=== PATIENT | female | born 1950 | race American Indian/Alaskan Native ===

== ENCOUNTER 2019-05-17 10:04 | Inpatient (IN) | payer MEDICARE ==
[2019-05-17] MEDS ORDERED: IPRATROPIUM 0.02% NEBU 2.5 ML IH ONE ×2 (10:11→10:16)
[2019-05-17] MEDS ORDERED: ALBUTEROL 2.5 MG/3 ML NEBU IH ONE ×2 (10:11→10:16)
--- NOTE | 2019-05-17 10:16 | Emergency Department Report ---
ED Shortness of Breath HPI - General Stated Complaint: EVY Time Seen by Provider: 05/17/19 10:09 Source: patient, EMS - History of Present Illness Initial Comments: Patient is 69 years old female with history of COPD, pulmonary hypertension and diabetes. Patient brought to the emergency room via EMS for evaluation of shortness of breath and difficulty breathing started this morning. EMS stated that patient initial oxygen saturation was 80% on room air. Patient is started on BiPAP and symptoms to start to improve. Patient received Solu-Medrol 125 mg IV and 2 rounds of magnesium sulfate. Arrival to the ER patient is in moderate respiratory distress but she is alert, oriented 3 and following commands very well. Patient continued on BiPAP, received 10 mg of albuterol and 1 mg of Atrovent. MD Complaint: shortness of breath - Related Data Allergies Allergy/AdvReac Type Severity Reaction Status Date / Time codeine Allergy Itching Verified 04/18/15 18:49 Penicillins Allergy Hives Verified 04/18/15 18:49 Sulfa (Sulfonamide Allergy Unknown Verified 04/18/15 18:49 Antibiotics) ED Review of Systems ROS: Stated complaint: EVY Other details as noted in HPI Comment: All other systems reviewed and negative Constitutional: denies: chills, fever Respiratory: shortness of breath, SOB with exertion, wheezing. denies: cough Cardiovascular: denies: chest pain, palpitations Gastrointestinal: denies: abdominal pain, nausea, vomiting Neurological: denies: headache, weakness, numbness, paresthesias, confusion, abnormal gait, vertigo ED Past Medical Hx - Past Medical History Hx Diabetes: Yes (borderline) Hx COPD: Yes Hx HIV: No Additional medical history: high cholesterol - Surgical History Additional Surgical History: hysterectomy - Social History Smoking Status: Current Every Day Smoker ED Physical Exam - General Limitations: No Limitations General appearance: alert, in distress (moderate respiratory distress) - Head Head exam: Present: atraumatic, normocephalic, normal inspection - Eye Eye exam: Present: normal appearance - ENT ENT exam: Present: normal exam, normal orophraynx, mucous membranes moist - Neck Neck exam: Present: normal inspection, full ROM. Absent: tenderness, meningismus, lymphadenopathy, thyromegaly - Respiratory Respiratory exam: Present: respiratory distress, wheezes, rales, rhonchi, accessory muscle use. Absent: stridor, decreased breath sounds, prolonged expiratory - Cardiovascular Cardiovascular Exam: Present: regular rate, normal rhythm, normal heart sounds - GI/Abdominal GI/Abdominal exam: Present: soft, normal bowel sounds. Absent: distended, tenderness, guarding, rebound, rigid, organomegaly, mass, bruit, pulsatile mass, hernia - Extremities Exam Extremities exam: Present: normal inspection, full ROM, normal capillary refill. Absent: pedal edema, calf tenderness - Back Exam Back exam: Present: normal inspection, full ROM. Absent: CVA tenderness (R), CVA tenderness (L), muscle spasm, paraspinal tenderness, vertebral tenderness - Neurological Exam Neurological exam: Present: alert, oriented X3, CN II-XII intact - Psychiatric Psychiatric exam: Present: normal mood, anxious - Skin Skin exam: Present: warm, intact, normal color ED Course Vital Signs 05/17/19 05/17/19 05/17/19 10:05 10:20 10:23 Temperature 97.8 F Pulse Rate 103 H 92 H Pulse Rate [ 90 Anterior Bilateral Throughout] Respiratory 23 19 Rate Respiratory 15 Rate [Anterior Bilateral Throughout] Blood Pressure 123/74 Blood Pressure 123/74 [Left] O2 Sat by Pulse 100 100 Oximetry 05/17/19 05/17/19 05/17/19 10:24 10:50 11:09 Temperature Pulse Rate 92 H 90 Pulse Rate [ Anterior Bilateral Throughout] Respiratory 18 14 Rate Respiratory Rate [Anterior Bilateral Throughout] Blood Pressure 88/47 Blood Pressure 86/55 [Left] O2 Sat by Pulse 100 100 Oximetry 05/17/19 05/17/19 12:18 12:59 Temperature Pulse Rate 89 80 Pulse Rate [ Anterior Bilateral Throughout] Respiratory 14 14 Rate Respiratory Rate [Anterior Bilateral Throughout] Blood Pressure Blood Pressure 96/52 102/62 [Left] O2 Sat by Pulse 94 99 Oximetry ED Medical Decision Making - Lab Data Result diagrams: 05/17/19 10:35 05/17/19 10:35 - EKG Data -: EKG Interpreted by Nm EKG shows normal: sinus rhythm Rate: tachycardia - EKG Data Interpretation: no acute changes - Radiology Data Radiology results: report reviewed - Medical Decision Making Patient is 69 years old female with history of COPD, pulmonary hypertension and diabetes. Patient brought to the emergency room via EMS for evaluation of shortness of breath and difficulty breathing started this morning. EMS stated that patient initial oxygen saturation was 80% on room air. Patient is started on BiPAP and symptoms to start to improve. Patient received Solu-Medrol 125 mg IV and 2 rounds of magnesium sulfate. Arrival to the ER patient is in moderate respiratory distress but she is alert, oriented 3 and following commands very well. Patient continued on BiPAP, received 10 mg of albuterol and 1 mg of Atrovent. Patient continued on BiPAP. Patient stated that she is feeling better. I discussed the patient was Dr. Phillips from [facility] for advised to admit the patient until [facility] and he will follow-up on the patient for possible conservator when patient is a stable. I discussed the patient with Dr. Keene, he agreed to admit to the hospital. Critical Care Time: Yes Critical care time in (mins) excluding proc time.: 30 Critical care attestation.: If time is entered above; I have spent that time in minutes in the direct care of this critically ill patient, excluding procedure time. ED Disposition Clinical Impression: COPD exacerbation, Acute and chronic respiratory failure Disposition: 09 OP ADMIT IP TO THIS HOSP Is pt being admited?: Yes Condition: Stable Instructions: Chronic Bronchitis (ED)
[2019-05-17] MEDS ORDERED: SODIUM CHLORIDE 0.9% 1000 ML 1,000 ML ONE (10:47)
[2019-05-17] MEDS ORDERED: SODIUM CHLORIDE 0.9% 1000 ML 1,000 ML IV ONE (10:51)
[2019-05-17 10:59] LABS: INR 1.02 (0.87-1.13)
--- NOTE | 2019-05-17 10:59 | XRay Report ---
CHEST 1 VIEW 10:36 AM INDICATION / CLINICAL INFORMATION: Dyspnea. COMPARISON: None available. FINDINGS: SUPPORT DEVICES: None. HEART / MEDIASTINUM: The heart size is borderline with a left ventricular configuration. Pulmonary va sculature is normal. There is mild aortic tortuosity without aneurysm. LUNGS / PLEURA: There is mild linear parenchymal opacity in the right lung base. The lungs are otherw ise clear. No pneumothorax. ADDITIONAL FINDINGS: No significant additional findings. IMPRESSION: Mild right basilar subsegmental atelectasis. Signer Name: Sameer Malone MD Signed: 05/17/2019 10:55 AM Workstation Name: [id number]
[2019-05-17 11:00] LABS: Partial Thromboplastin Time 25.5 Sec. (24.2-36.6)
[2019-05-17 11:04] LABS: BUN/Creatinine Ratio 18; Blood Urea Nitrogen 14 mg/dL (7-17); Calcium 8.9 mg/dL (8.4-10.2); Hemolysis Index 6
[2019-05-17 11:08] LABS: Alanine Aminotransferase 29 units/L (7-56); Albumin 3.9 g/dL (3.9-5)
[2019-05-17 11:09] LABS: Bilirubin,Direct < 0.2 mg/dL (0-0.2)
[2019-05-17 11:12] LABS: Eosinophils # (Auto) 0.3 K/mm3 (0.0-0.4); Eosinophils % (Auto) 3.7 % (0.0-4.3)
[2019-05-17 11:13] LABS: Hemoglobin 13.4 gm/dl (10.1-14.3); Mean Corpuscular HGB Conc 32 % (30-34); Mean Corpuscular Volume 81 fl (79-97); Platelet Count 257 K/mm3 (140-440); Red Blood Count 5.18 M/mm3 (3.65-5.03); Red Cell Distribution Width 15.7 % (13.2-15.2)
[2019-05-17 11:14] LABS: Basophils # (Auto) 0.1 K/mm3 (0.0-0.1); Basophils % (Auto) 0.6 % (0.0-1.8); Monocytes # (Auto) 0.7 K/mm3 (0.0-0.8); Monocytes % (Auto) 7.4 % (0.0-7.3)
--- NOTE | 2019-05-17 12:30 | Cat Scan Report ---
CTA CHEST WITH IV CONTRAST INDICATION: SOB AND ELEVATED D-DIMER. TECHNIQUE: Axial CT images were obtained through the chest after injection of 100 mL Omnipaque 350 IV contrast. 3 plane MIP reconstructions were produced. All CT scans at this location are performed using CT dose reduction for ALARA by means of automated exposure control. COMPARISON: One view of the chest from earlier today. FINDINGS: PULMONARY ARTERIES: No pulmonary emboli. AORTA AND ARTERIES: No acute abnormality. No significant atherosclerosis. MEDIASTINUM: The thyroid gland is unremarkable. The trachea and main bronchi are patent and normal in caliber. No mass or lymphadenopathy. Normal heart size without a pericardial effusion. LUNGS: Mild centrilobular emphysema is noted predominantly along the upper lobes. There is bibasilar atelectasis, most notable along the right lower lobe. No pneumothorax or pleural effusion. ADDITIONAL FINDINGS: None. UPPER ABDOMEN: No acute findings. BONES: No significant osseous abnormality. IMPRESSION: 1. No CT evidence for pulmonary embolism or other acute abnormalities of the chest. 2. Additional findings as above. Signer Name: Nav Hooks MD Signed: 05/17/2019 12:26 PM Workstation Name: [id number]
[2019-05-17 14:09] LABS: Chol/HDL Ratio 3.2 %
[2019-05-17] MEDS ORDERED: ALBUTEROL 2.5 MG/3 ML NEBU IH PRN (21:54)
[2019-05-17] MEDS ORDERED: oxyCODONE /ACETAMINOPHEN 5-325MG TAB PO PRN (21:55)
[2019-05-17] MEDS ORDERED: HYDROmorphone 1 MG/1 ML INJ IV PRN (21:55)
[2019-05-17] MEDS ORDERED: ACETAMINOPHEN 325 MG TAB PO PRN (21:55)
[2019-05-17] MEDS ORDERED: ONDANSETRON 4 MG/2 ML INJ IV PRN (21:55)
[2019-05-17] MEDS ORDERED: ZOLPIDEM 5 MG TAB PO PRN (21:55)
[2019-05-17] MEDS ORDERED: OLODATEROL HCL IH SCH (22:00)
[2019-05-17] MEDS ORDERED: ENOXAPARIN 40 MG/0.4 ML INJ SUB-Q SCH (22:00)
[2019-05-17] MEDS ORDERED: TIOTROPIUM BR IH SCH (22:00)
[2019-05-17] MEDS: FAMOTIDINE 20 MG TAB PO SCH (22:22)
[2019-05-17] MEDS: methylPREDNISolone Sod Succinate 125 MG/2 ML INJ IV SCH (22:22)
[2019-05-18] MEDS: methylPREDNISolone Sod Succinate 125 MG/2 ML INJ IV SCH ×2 (06:30→14:48)
[2019-05-18 06:46] LABS: Alanine Aminotransferase 27 units/L (7-56); Albumin 3.6 g/dL (3.9-5); BUN/Creatinine Ratio 20; Blood Urea Nitrogen 12 mg/dL (7-17); Calcium 8.9 mg/dL (8.4-10.2); Hemolysis Index 0
[2019-05-18 06:46] LABS: Basophils % (Auto) 0.1 % (0.0-1.8); Hematocrit 40.2 % (30.3-42.9); Hemoglobin 12.9 gm/dl (10.1-14.3); Lymphocytes % (Auto) 11.4 % (13.4-35.0); Mean Corpuscular HGB Conc 32 % (30-34); Mean Corpuscular Volume 81 fl (79-97); Monocytes # (Auto) 0.2 K/mm3 (0.0-0.8); Monocytes % (Auto) 1.9 % (0.0-7.3); Platelet Count 236 K/mm3 (140-440); Red Blood Count 4.99 M/mm3 (3.65-5.03); Red Cell Distribution Width 15.6 % (13.2-15.2)
--- NOTE | 2019-05-18 07:12 | History and Physical Report ---
History of Present Illness Date of examination: 05/17/19 Date of admission: 05/17/19 13:38 Chief complaint: SOB since AM History of present illness: 69 years old female with history of COPD, pulmonary hypertension and diabetes brought to the emergency room via EMS for evaluation of shortness of breath and difficulty breathing started this morning. EMS stated that patient initial oxygen saturation was 80% on room air. Patient is started on BiPAP and symptoms to start to improve. Patient received Solu-Medrol 125 mg IV and 2 rounds of magnesium sulfate. Arrival to the ER patient is in moderate respiratory distress but she is alert, oriented 3 and following commands very well. Patient continued on BiPAP, received 10 mg of albuterol and 1 mg of Atrovent. Past Medical History Diabetes COPD high cholesterol Surgical History Additional Surgical History: hysterectomy Social History Smoking Status: Current Every Day Smoker Family History Htn Review of Systems ROS: Stated complaint: EVY Other details as noted in HPI Comment: All other systems reviewed and negative Constitutional: denies: chills, fever Respiratory: shortness of breath, SOB with exertion, wheezing. denies: cough Cardiovascular: denies: chest pain, palpitations Gastrointestinal: denies: abdominal pain, nausea, vomiting Neurological: denies: headache, weakness, numbness, paresthesias, confusion, abnormal gait, vertigo Medications and Allergies Allergies Allergy/AdvReac Type Severity Reaction Status Date / Time cetirizine [From [facility]] Allergy Hives Verified 05/17/19 15:59 codeine Allergy Itching Verified 04/18/15 18:49 Penicillins Allergy Hives Verified 04/18/15 18:49 pseudoephedrine Allergy Anaphylaxis Verified 05/17/19 15:59 [From [facility]] Sulfa (Sulfonamide Allergy Unknown Verified 04/18/15 18:49 Antibiotics) Home Medications Medication Instructions Recorded Confirmed Last Taken Type ALBUTEROL Inhaler (OR & NICU) 2 puff IH QID PRN 05/17/19 05/17/19 2 Days Ago History [Proair] ~05/15/19 Ipratropium/Albuterol Sulfate 1 ampul IH Q6HR PRN 05/17/19 05/17/19 1 Day Ago History [DUONEB *Not for PRN Use*] ~05/16/19 Tiotropium Br/Olodaterol HCl 4 gm IH BID 05/17/19 05/17/19 1 Day Ago History [Stiolto Respimat Inhal [place]] ~05/16/19 Active Meds: Active Medications Acetaminophen (Tylenol) 650 mg PO Q4H PRN PRN Reason: Pain MILD(1-3)/Fever >100.5/RIOS Albuterol (Proventil) 2.5 mg IH Q4HRT PRN PRN Reason: Shortness Of Breath Albuterol/Ipratropium (Duoneb *Not For Prn Use*) 1 ampul IH QIDRT [facility] Enoxaparin Sodium (Lovenox) 40 mg SUB-Q QDAY@2200 [facility] Last Admin: 05/17/19 22:23 Dose: 40 mg Documented by: Famotidine (Pepcid) 20 mg PO BID [facility] Last Admin: 05/17/19 22:22 Dose: 20 mg Documented by: Hydromorphone HCl (Dilaudid) 0.5 mg IV Q3H PRN PRN Reason: Pain , Severe (7-10) Levofloxacin/Dextrose (Levaquin 750mg/150ml) 750 mg in 150 mls @ 100 mls/hr IV Q24H [facility]; Protocol Last Admin: 05/17/19 22:23 Dose: 100 mls/hr Documented by: Methylprednisolone Sodium Succinate (Solu-Medrol) 80 mg IV Q8HR [facility] Last Admin: 05/17/19 22:22 Dose: 80 mg Documented by: Ondansetron HCl (Zofran) 4 mg IV Q8H PRN PRN Reason: Nausea And Vomiting Oxycodone/Acetaminophen (Percocet 5/325) 1 tab PO Q6H PRN PRN Reason: Pain, Moderate (4-6) Sodium Chloride (Sodium Chloride Flush Syringe 10 Ml) 10 ml IV BID [facility] Last Admin: 05/17/19 22:36 Dose: 10 ml Documented by: Sodium Chloride (Sodium Chloride Flush Syringe 10 Ml) 10 ml IV PRN PRN PRN Reason: LINE FLUSH Zolpidem Tartrate (Ambien) 5 mg PO QHS PRN PRN Reason: Insomnia Exam - Constitutional Vitals: Temp Pulse Resp BP Pulse Ox 98.4 F 81 20 105/61 99 05/17/19 23:05 05/17/19 23:05 05/18/19 02:58 05/17/19 23:05 05/17/19 23:05 General appearance: Present: mild distress, well-nourished - EENT Eyes: Present: PERRL ENT: hearing intact, clear oral mucosa - Neck Neck: Present: supple, normal ROM - Respiratory Respiratory effort: normal Respiratory: bilateral: diminished, rhonchi, wheezing - Cardiovascular Heart rate: 88 Rhythm: regular Heart Sounds: Present: S1 & S2. Absent: rub, click - Extremities Extremities: no ischemia, pulses intact, pulses symmetrical, No edema Peripheral Pulses: within normal limits - Abdominal General gastrointestinal: Present: soft, non-tender, non-distended, normal bowel sounds Female genitourinary: Present: normal - Rectal Rectal Exam: deferred - Integumentary Integumentary: Present: clear, warm, dry - Musculoskeletal Musculoskeletal: gait normal, strength equal bilaterally - Psychiatric Psychiatric: appropriate mood/affect, intact judgment & insight - Neurologic Neurologic: CNII-XII intact, moves all extremities - Allied Health Allied health notes reviewed: nursing, case management Results - Labs CBC & Chem 7: 05/18/19 Unknown 05/17/19 10:35 Labs: Laboratory Last Values WBC 8.5 K/mm3 (4.5-11.0) 05/18/19 Unknown RBC 4.99 M/mm3 (3.65-5.03) 05/18/19 Unknown Hgb 12.9 gm/dl (10.1-14.3) 05/18/19 Unknown Hct 40.2 % (30.3-42.9) 05/18/19 Unknown MCV 81 fl (79-97) 05/18/19 Unknown MCH 26 pg (28-32) L 05/18/19 Unknown MCHC 32 % (30-34) 05/18/19 Unknown RDW 15.6 % (13.2-15.2) H 05/18/19 Unknown Plt Count 236 K/mm3 (140-440) 05/18/19 Unknown Lymph % (Auto) 11.4 % (13.4-35.0) L 05/18/19 Unknown [place] % (Auto) 1.9 % (0.0-7.3) 05/18/19 Unknown Eos % (Auto) 0.0 % (0.0-4.3) 05/18/19 Unknown Baso % (Auto) 0.1 % (0.0-1.8) 05/18/19 Unknown Lymph # 1.0 K/mm3 (1.2-5.4) L 05/18/19 Unknown [place] # 0.2 K/mm3 (0.0-0.8) 05/18/19 Unknown Eos # 0.0 K/mm3 (0.0-0.4) 05/18/19 Unknown Baso # 0.0 K/mm3 (0.0-0.1) 05/18/19 Unknown Seg Neutrophils % 86.6 % (40.0-70.0) H 05/18/19 Unknown Seg Neutrophils # 7.4 K/mm3 (1.8-7.7) 05/18/19 Unknown PT 13.1 Sec. (12.2-14.9) 05/17/19 10:35 INR 1.02 (0.87-1.13) 05/17/19 10:35 APTT 25.5 Sec. (24.2-36.6) 05/17/19 10:35 D-Dimer 709.26 ng/mlDDU (0-234) H 05/17/19 10:35 POC ABG pH 7.299 (7.35-7.45) L 05/17/19 11:24 POC ABG pCO2 47.0 (35-45) H 05/17/19 11:24 POC ABG pO2 125 (80-105) H 05/17/19 11:24 POC ABG HCO3 23.1 (22-26 mml/L) 05/17/19 11:24 POC ABG Total CO2 25 (23-27mmol/L) 05/17/19 11:24 POC ABG O2 Sat 98 05/17/19 11:24 POC ABG Base Excess -3 ((-2) - (+3)mmol/L) 05/17/19 11:24 FiO2 35 % 05/17/19 11:24 Sodium 142 mmol/L (137-145) 05/17/19 10:35 Potassium 4.6 mmol/L (3.6-5.0) 05/17/19 10:35 Chloride 103.4 mmol/L (98-107) 05/17/19 10:35 Carbon Dioxide 23 mmol/L (22-30) 05/17/19 10:35 Anion Gap 20 mmol/L 05/17/19 10:35 BUN 14 mg/dL (7-17) 05/17/19 10:35 Creatinine 0.8 mg/dL (0.7-1.2) 05/17/19 10:35 Estimated GFR > 60 ml/min 05/17/19 10:35 BUN/Creatinine Ratio 18 % 05/17/19 10:35 Glucose 192 mg/dL (65-100) H 05/17/19 10:35 Hemoglobin A1c 6.8 % (4-6) H 05/17/19 10:35 Calcium 8.9 mg/dL (8.4-10.2) 05/17/19 10:35 Total Bilirubin 0.30 mg/dL (0.1-1.2) 05/17/19 10:35 Direct Bilirubin < 0.2 mg/dL (0-0.2) 05/17/19 10:35 Indirect Bilirubin 0.1 mg/dL 05/17/19 10:35 AST 37 units/L (5-40) 05/17/19 10:35 ALT 29 units/L (7-56) 05/17/19 10:35 Alkaline Phosphatase 128 units/L (35-129) 05/17/19 10:35 Troponin T 0.090 ng/mL (0.00-0.029) H D 05/17/19 13:19 NT-Pro-B Natriuret Pep 77.33 pg/mL (0-900) 05/17/19 10:35 Total Protein 6.5 g/dL (6.3-8.2) 05/17/19 10:35 Albumin 3.9 g/dL (3.9-5) 05/17/19 10:35 Albumin/Globulin Ratio 1.5 % 05/17/19 10:35 Triglycerides 52 mg/dL (2-149) 05/17/19 13:19 Cholesterol 157 mg/dL (50-199) 05/17/19 13:19 LDL Cholesterol Direct 104 mg/dL (50-130) 05/17/19 13:19 HDL Cholesterol 49 mg/dL (40-59) 05/17/19 13:19 Cholesterol/HDL Ratio 3.20 % 05/17/19 13:19 Short CBC 05/17/19 05/18/19 Range/Units 10:35 Unknown WBC 9.2 8.5 (4.5-11.0) K/mm3 Hgb 13.4 12.9 (10.1-14.3) gm/dl Hct 42.0 40.2 (30.3-42.9) % Plt Count 257 236 (140-440) K/mm3 BMP 05/17/19 10:35 Sodium 142 Potassium 4.6 Chloride 103.4 Carbon Dioxide 23 BUN 14 Creatinine 0.8 Glucose 192 H Calcium 8.9 Cardiac Enzymes 05/17/19 05/17/19 Range/Units 10:35 13:19 Troponin T < 0.010 0.090 H D (0.00-0.029) ng/mL Liver Function 05/17/19 Range/Units 10:35 Total Bilirubin 0.30 (0.1-1.2) mg/dL Direct Bilirubin < 0.2 (0-0.2) mg/dL AST 37 (5-40) units/L ALT 29 (7-56) units/L Alkaline Phosphatase 128 (35-129) units/L Albumin 3.9 (3.9-5) g/dL - Imaging and Cardiology EKG: report reviewed Chest x-ray: report reviewed Assessment and Plan Advance Directives: Yes (FC) VTE prophylaxis?: Chemical Plan of care discussed with patient/family: Yes - Patient Problems (1) Acute respiratory failure with hypoxia Current Visit: Yes Status: Acute Plan to address problem: Patient on Bipap IV solumedrol IV abx and Neb treatments (2) COPD exacerbation Current Visit: Yes Status: Acute Plan to address problem: IV SOlumedrol IV Abx and Neb tx rtc On Bipap Adjust O2 accordingly (3) T2DM (type 2 diabetes mellitus) Current Visit: Yes Status: Chronic Qualifiers: Diabetes mellitus retirement insulin 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
[2019-05-18] MEDS: IPRATROPIUM/ALBUTEROL SULFATE 3 ML AMPUL.NEB IH SCH ×3 (08:31→17:08)
--- NOTE | 2019-05-18 08:36 | Progress Note ---
Assessment and Plan Assessment and plan: Patient is a 69 yo woman with a history of COPD, tobacco dependency and type 2 DM who presented with sob. 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 Hernandez from [place]===> She will call me back regarding transferring patient to [place] facility History Interval history: Patient was seen and examined. Follow-up on current diagnosis COPD. No overnight events reported to me. Patient denies any nausea/vomiting or severe headaches. Imaging, nursing note, chart, labs and old chart reviewed. Discussed with patient. Hospitalist Physical - Physical exam Narrative exam: Gen: WDWN, NAD, Awake, Alert, Orientated HEENT: NCAT, EOMI, PERRL, OP Clear Neck: supple, no adenopathy, no thyromegaly, no JVD CVS/Heart: RRR, normal S1S2, pulses present bilaterally Chest/Lungs: diminished bs bilateral, Symmetrical chest expansion, good air entry bilaterally GI/Abdomen: soft, NTND, good bowel sounds, no guarding or rebound /Bladder: no suprapubic tenderness, no CVA or paraspinal tenderness Extermity/Skin: no c/c/e, no obvious rash MSK: FROM x 4 Neuro: CN 2-12 grossly intact, no new focal deficits Psych: calm - Constitutional Vitals: Temp Pulse Resp BP Pulse Ox 98.4 F 81 20 105/61 99 05/17/19 23:05 05/17/19 23:05 05/18/19 02:58 05/17/19 23:05 05/17/19 23:05 General appearance: Present: mild distress, well-nourished Results - Labs CBC & Chem 7: 05/18/19 Unknown 05/18/19 04:00 Labs: Laboratory Last Values WBC 8.5 K/mm3 (4.5-11.0) 05/18/19 Unknown RBC 4.99 M/mm3 (3.65-5.03) 05/18/19 Unknown Hgb 12.9 gm/dl (10.1-14.3) 05/18/19 Unknown Hct 40.2 % (30.3-42.9) 05/18/19 Unknown MCV 81 fl (79-97) 05/18/19 Unknown MCH 26 pg (28-32) L 05/18/19 Unknown MCHC 32 % (30-34) 05/18/19 Unknown RDW 15.6 % (13.2-15.2) H 05/18/19 Unknown Plt Count 236 K/mm3 (140-440) 05/18/19 Unknown Lymph % (Auto) 11.4 % (13.4-35.0) L 05/18/19 Unknown [place] % (Auto) 1.9 % (0.0-7.3) 05/18/19 Unknown Eos % (Auto) 0.0 % (0.0-4.3) 05/18/19 Unknown Baso % (Auto) 0.1 % (0.0-1.8) 05/18/19 Unknown Lymph # 1.0 K/mm3 (1.2-5.4) L 05/18/19 Unknown [place] # 0.2 K/mm3 (0.0-0.8) 05/18/19 Unknown Eos # 0.0 K/mm3 (0.0-0.4) 05/18/19 Unknown Baso # 0.0 K/mm3 (0.0-0.1) 05/18/19 Unknown Seg Neutrophils % 86.6 % (40.0-70.0) H 05/18/19 Unknown Seg Neutrophils # 7.4 K/mm3 (1.8-7.7) 05/18/19 Unknown PT 13.1 Sec. (12.2-14.9) 05/17/19 10:35 INR 1.02 (0.87-1.13) 05/17/19 10:35 APTT 25.5 Sec. (24.2-36.6) 05/17/19 10:35 D-Dimer 709.26 ng/mlDDU (0-234) H 05/17/19 10:35 POC ABG pH 7.299 (7.35-7.45) L 05/17/19 11:24 POC ABG pCO2 47.0 (35-45) H 05/17/19 11:24 POC ABG pO2 125 (80-105) H 05/17/19 11:24 POC ABG HCO3 23.1 (22-26 mml/L) 05/17/19 11:24 POC ABG Total CO2 25 (23-27mmol/L) 05/17/19 11:24 POC ABG O2 Sat 98 05/17/19 11:24 POC ABG Base Excess -3 ((-2) - (+3)mmol/L) 05/17/19 11:24 FiO2 35 % 05/17/19 11:24 Sodium 141 mmol/L (137-145) 05/18/19 04:00 Potassium 4.4 mmol/L (3.6-5.0) 05/18/19 04:00 Chloride 102.4 mmol/L (98-107) 05/18/19 04:00 Carbon Dioxide 25 mmol/L (22-30) 05/18/19 04:00 Anion Gap 18 mmol/L 05/18/19 04:00 BUN 12 mg/dL (7-17) 05/18/19 04:00 Creatinine 0.6 mg/dL (0.7-1.2) L 05/18/19 04:00 Estimated GFR > 60 ml/min 05/18/19 04:00 BUN/Creatinine Ratio 20 % 05/18/19 04:00 Glucose 167 mg/dL (65-100) H 05/18/19 04:00 Hemoglobin A1c 6.8 % (4-6) H 05/17/19 10:35 Calcium 8.9 mg/dL (8.4-10.2) 05/18/19 04:00 Total Bilirubin 0.30 mg/dL (0.1-1.2) 05/18/19 04:00 Direct Bilirubin < 0.2 mg/dL (0-0.2) 05/17/19 10:35 Indirect Bilirubin 0.1 mg/dL 05/17/19 10:35 AST 25 units/L (5-40) 05/18/19 04:00 ALT 27 units/L (7-56) 05/18/19 04:00 Alkaline Phosphatase 109 units/L (35-129) 05/18/19 04:00 Troponin T 0.090 ng/mL (0.00-0.029) H D 05/17/19 13:19 NT-Pro-B Natriuret Pep 77.33 pg/mL (0-900) 05/17/19 10:35 Total Protein 6.6 g/dL (6.3-8.2) 05/18/19 04:00 Albumin 3.6 g/dL (3.9-5) L 05/18/19 04:00 Albumin/Globulin Ratio 1.2 % 05/18/19 04:00 Triglycerides 52 mg/dL (2-149) 05/17/19 13:19 Cholesterol 157 mg/dL (50-199) 05/17/19 13:19 LDL Cholesterol Direct 104 mg/dL (50-130) 05/17/19 13:19 HDL Cholesterol 49 mg/dL (40-59) 05/17/19 13:19 Cholesterol/HDL Ratio 3.20 % 05/17/19 13:19 Active Medications - Current Medications Current Medications: Generic Name Dose Route Start Last Admin Trade Name Freq PRN Reason Stop Dose Admin Acetaminophen 650 mg 05/17/19 21:55 Tylenol PO Q4H PRN Pain MILD(1-3)/Fever >100.5/RIOS Albuterol 2.5 mg 05/17/19 21:54 Proventil IH Q4HRT PRN Shortness Of Breath Albuterol/Ipratropium 1 ampul 05/18/19 08:00 05/18/19 08:31 Duoneb *Not For Prn Use* IH 1 ampul QIDRT [facility] Administration Enoxaparin Sodium 40 mg 05/17/19 22:00 05/17/19 22:23 Lovenox SUB-Q 40 mg QDAY@2200 [facility] Administration Famotidine 20 mg 05/17/19 22:00 05/17/19 22:22 Pepcid PO 20 mg BID [facility] Administration Hydromorphone HCl 0.5 mg 05/17/19 21:55 Dilaudid IV Q3H PRN Pain , Severe (7-10) Levofloxacin/Dextrose 750 mg in 150 mls @ 100 mls/hr 05/17/19 22:00 05/17/19 22:23 Levaquin 750mg/150ml IV 05/21/19 23:29 100 mls/hr Q24H [facility] Administration Protocol Methylprednisolone Sodium Succinate 80 mg 05/17/19 22:00 05/18/19 06:30 Solu-Medrol IV 80 mg Q8HR [facility] Administration Ondansetron HCl 4 mg 05/17/19 21:55 Zofran IV Q8H PRN Nausea And Vomiting Oxycodone/Acetaminophen 1 tab 05/17/19 21:55 Percocet 5/325 PO Q6H PRN Pain, Moderate (4-6) Sodium Chloride 10 ml 05/17/19 22:00 05/17/19 22:36 Sodium Chloride Flush Syringe 10 Ml IV 10 ml BID [facility] Administration Sodium Chloride 10 ml 05/17/19 21:55 Sodium Chloride Flush Syringe 10 Ml IV PRN PRN LINE FLUSH Zolpidem Tartrate 5 mg 05/17/19 21:55 Ambien PO QHS PRN Insomnia
[2019-05-18] MEDS: FAMOTIDINE 20 MG TAB PO SCH (10:12)
[2019-05-18 11:01] LABS: Bacteria,Urine 2+ /HPF (Negative); Bilirubin,Urine NEG (Negative); Blood,Urine SM (Negative); Color,Urine Straw (Yellow); Mucus,Urine FEW /HPF; Protein,Urine <15 mg/dL mg/dL (Negative); Urobilinogen,Urine < 2.0 mg/dL (<2.0); WBC,Urine < 1.0 /HPF (0.0-6.0)
--- NOTE | 2019-05-18 11:08 | Consultation ---
History of Present Illness Consult date: 05/18/19 Requesting physician: ANGELITO GIL Consult reason: elevated troponin History of present illness: The pt is a 69 YO female [place] pt with a past medical history of COPD, current tobacco smoker, suspected pulmonary HTN, suspected PARMJIT. She is previously unknown to our practice. She presented with c/o panic attack and respiratory distress yesterday. She states that for the past several days, she has been progressively SOB. 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 Her family called EMS and while waiting for EMS to arrive, pt briefly lost consciousness. EMS stated that patient initial oxygen saturation was 80% on room air. She required bag valve mask ventilation en route to ED per her family members. Pt was initiated on BiPAP in ED and was noted to improve. On evaluation, pt is resting comfortably in bed on O2 via nasal cannula. Cardiology has been consulted for minimally elevated trop x 1 set. Pt denies any occurrence of chest pain, palpitations, n/v, diaphoresis. She denies any prior cardiac issues, including CAD, AMI or HF. Pt does admit to BLE swelling since January,. Past History Past Medical History: COPD Social history: smoking Medications and Allergies Allergies Allergy/AdvReac Type Severity Reaction Status Date / Time cetirizine [From [facility]] Allergy Hives Verified 05/17/19 15:59 codeine Allergy Itching Verified 04/18/15 18:49 Penicillins Allergy Hives Verified 04/18/15 18:49 pseudoephedrine Allergy Anaphylaxis Verified 05/17/19 15:59 [From [facility]] Sulfa (Sulfonamide Allergy Unknown Verified 04/18/15 18:49 Antibiotics) Home Medications Medication Instructions Recorded Confirmed Last Taken Type ALBUTEROL Inhaler (OR & NICU) 2 puff IH QID PRN 05/17/19 05/17/19 2 Days Ago History [Proair] ~05/15/19 Ipratropium/Albuterol Sulfate 1 ampul IH Q6HR PRN 05/17/19 05/17/19 1 Day Ago History [DUONEB *Not for PRN Use*] ~05/16/19 Tiotropium Br/Olodaterol HCl 4 gm IH BID 05/17/19 05/17/19 1 Day Ago History [Stiolto Respimat Inhal [place]] ~05/16/19 Active Meds: Active Medications Acetaminophen (Tylenol) 650 mg PO Q4H PRN PRN Reason: Pain MILD(1-3)/Fever >100.5/RIOS Albuterol (Proventil) 2.5 mg IH Q4HRT PRN PRN Reason: Shortness Of Breath Albuterol/Ipratropium (Duoneb *Not For Prn Use*) 1 ampul IH QIDRT [facility] Last Admin: 05/18/19 08:31 Dose: 1 ampul Documented by: Enoxaparin Sodium (Lovenox) 40 mg SUB-Q QDAY@2200 [facility] Last Admin: 05/17/19 22:23 Dose: 40 mg Documented by: Famotidine (Pepcid) 20 mg PO BID [facility] Last Admin: 05/18/19 10:12 Dose: 20 mg Documented by: Hydromorphone HCl (Dilaudid) 0.5 mg IV Q3H PRN PRN Reason: Pain , Severe (7-10) Levofloxacin/Dextrose (Levaquin 750mg/150ml) 750 mg in 150 mls @ 100 mls/hr IV Q24H [facility]; Protocol Stop: 05/21/19 23:29 Last Admin: 05/17/19 22:23 Dose: 100 mls/hr Documented by: Methylprednisolone Sodium Succinate (Solu-Medrol) 80 mg IV Q8HR [facility] Last Admin: 05/18/19 06:30 Dose: 80 mg Documented by: Ondansetron HCl (Zofran) 4 mg IV Q8H PRN PRN Reason: Nausea And Vomiting Oxycodone/Acetaminophen (Percocet 5/325) 1 tab PO Q6H PRN PRN Reason: Pain, Moderate (4-6) Sodium Chloride (Sodium Chloride Flush Syringe 10 Ml) 10 ml IV BID [facility] Last Admin: 05/18/19 10:12 Dose: 10 ml Documented by: Sodium Chloride (Sodium Chloride Flush Syringe 10 Ml) 10 ml IV PRN PRN PRN Reason: LINE FLUSH Zolpidem Tartrate (Ambien) 5 mg PO QHS PRN PRN Reason: Insomnia Review of Systems Constitutional: no weight loss, no weight gain, no fever, no chills, no sweats Ears, nose, mouth and throat: no ear pain, no nose pain, no sinus pressure, no sinus pain Cardiovascular: syncope, shortness of breath, dyspnea on exertion, leg edema, decreased exercise tolerance, no chest pain, no orthopnea, no palpitations, no rapid/irregular heart beat, no edema, no lightheadedness, no high blood pressure Respiratory: cough, shortness of breath, dyspnea on exertion, congestion, wheezing, no pain on inspiration Gastrointestinal: no abdominal pain, no nausea, no vomiting, no diarrhea, no constipation, no change in bowel habits Genitourinary Female: no pelvic pain, no flank pain, no dysuria, no urinary frequency, no urgency Musculoskeletal: no neck stiffness, no neck pain, no shooting arm pain, no arm numbness/tingling, no low back pain, no shooting leg pain Integumentary: no rash, no pruritis, no redness, no sores, no wounds, no jaundice Neurological: no head injury, no paralysis, no weakness, no parathesias, no numbness, no tingling, no seizures, no syncope Psychiatric: no anxiety Endocrine: no cold intolerance, no heat intolerance Hematologic/Lymphatic: no easy bruising, no easy bleeding Allergic/Immunologic: no urticaria, no wheezing Physical Examination Vital Signs Temp Pulse Resp BP Pulse Ox 97.8 F 103 H 23 123/74 99 05/17/19 10:05 05/17/19 10:05 05/17/19 10:05 05/17/19 10:05 05/17/19 10:05 General appearance: no acute distress HEENT: Positive: PERRL, Normocephaly, Mucus Membranes Moist Neck: Positive: neck supple, trachea midline Cardiac: Positive: Reg Rate and Rhythm, S1/S2 Lungs: Positive: Decreased Breath Sounds, Wheezes, Oxygen Neuro: Positive: Grossly Intact Abdomen: Negative: Tender Skin: Negative: Rash Musculoskeletal: No Pain Extremities: Present: edema (trace BLE) Results 05/18/19 Unknown 05/18/19 04:00 Cardiac Enzymes 05/17/19 05/18/19 Range/Units 10:35 04:00 AST 37 25 (5-40) units/L Lipids 05/17/19 Range/Units 13:19 Triglycerides 52 (2-149) mg/dL Cholesterol 157 (50-199) mg/dL HDL Cholesterol 49 (40-59) mg/dL Cholesterol/HDL Ratio 3.20 % CBC 05/17/19 05/18/19 Range/Units 10:35 Unknown WBC 9.2 8.5 (4.5-11.0) K/mm3 RBC 5.18 H 4.99 (3.65-5.03) M/mm3 Hgb 13.4 12.9 (10.1-14.3) gm/dl Hct 42.0 40.2 (30.3-42.9) % Plt Count 257 236 (140-440) K/mm3 Lymph # 4.0 1.0 L (1.2-5.4) K/mm3 [place] # 0.7 0.2 (0.0-0.8) K/mm3 Eos # 0.3 0.0 (0.0-0.4) K/mm3 Baso # 0.1 0.0 (0.0-0.1) K/mm3 Comprehensive Metabolic Panel 05/17/19 05/18/19 Range/Units 10:35 04:00 Sodium 141 (137-145) mmol/L Potassium 4.4 (3.6-5.0) mmol/L Chloride 102.4 (98-107) mmol/L Carbon Dioxide 25 (22-30) mmol/L BUN 12 (7-17) mg/dL Creatinine 0.6 L (0.7-1.2) mg/dL Glucose 167 H (65-100) mg/dL Calcium 8.9 (8.4-10.2) mg/dL Direct Bilirubin < 0.2 (0-0.2) mg/dL Indirect Bilirubin 0.1 mg/dL AST 37 25 (5-40) units/L ALT 29 27 (7-56) units/L Alkaline Phosphatase 128 109 (35-129) units/L Total Protein 6.5 6.6 (6.3-8.2) g/dL Albumin 3.9 3.6 L (3.9-5) g/dL - Imaging and Cardiology Echo: pending EKG: report reviewed, image reviewed EKG interpretations - Telemetry EKG Rhythm: Sinus Rhythm - EKG Sinus rhythms and dysrhythmias: sinus rhythm Assessment and Plan COPD with acute exacerbation Pulmonary consulted per primary. Acute respiratory failure Improving. Chest CTA negative for PE, no acute findings. Pulmonary consulted per primary. Minimally elevated trop x 1 set ECG with NAF. Trop negative for AMI x 2 additional sets. Pt denies any occurrence of chest pain. Obtain echo. Suspected pulmonary HTN Pt was told by her [place] PCP that she had pulm HTN via echo. Pt does not regularly see a sizing sponger or product development director at [place]. Pulmonary consulted per primary. Obtain echo. Suspected PARMJIT Pulmonary consulted per primary. BLE swelling / ? acute heart failure Initiate gentle diuresis with IV lasix daily and obtain echo. Tobacco use Cessation encouraged. The patient has been seen in conjunction with Dr. Sumner who agrees with the assessment and plan of care.
[2019-05-18] MEDS ORDERED: FUROSEMIDE 40 MG/4 ML INJ IV SCH (12:00)
[2019-05-18 12:04] VITALS: BP 120/65
--- NOTE | 2019-05-18 12:35 | Discharge Summary ---
Providers - Providers Date of Admission: 05/17/19 13:38 Date of discharge: 05/18/19 Attending physician: ANGELITO GIL 05/18/19 08:31 Consult to Physician [CONS] Routine Comment: Consulting Provider: SOPHIA MONTANO Physician Instructions: Reason For Exam: Elevated troponin 05/18/19 11:23 Consult to Physician [CONS] Routine Comment: Consulting Provider: LEROY WORTHY Physician Instructions: Reason For Exam: respiratory failure, copd Hospitalization Condition: Stable Hospital course: Patient is a 69 yo woman with a history of COPD, tobacco dependency and type 2 DM who presented with sob. Pulse Ox was 80% with AMS and brief loss of consciousness * CTA chest Impression: No evidence for PE or other acute abnormalities of the chest, mild centrilobular emphysema...upper lobes...bibasilar atelectasis RLL Acute metabolic encephalopathy due to hypoxemia Acute hypoxic respiratory failure due to AE COPD: treat with O2 and treat the copd AE COPD, off Bipap: treat the copd with iv steroids, nebs, abx Type 2 DM: ssi, ada, accucheck Elevated troponin I level isolation, normal repeat Tobacco dependency: equal opportunity counselor on stopping, offered nicotine patch ( also smokes) Borderline low bp, no history of HTN DVT ppx with sq lovenox Disposition: continue inpatient care, treat the copd, follow up ECHO and troponin levels I spoke with Dr. Hernandez from [place]===> She will call me back regarding transferring patient to [place] facility==>She has been accepted to go to [facility] under Dr. Evans Disposition: [id number]/TX-[id number] ANOTHER TYPE [facility] Time spent for discharge: 36 minutes Core Measure Documentation - Palliative Care Palliative Care/ Comfort Measures: Not Applicable - Core Measures Any of the following diagnoses?: none - VTE Discharge Requirements Deep Vein Thrombosis/Pulmonary Embolism Present on Admission: No Has pt received <5 days of overlap therapy or INR<2.0: No Anticoagulant overlap therapy prescribed at discharge: No Contraindication No Overlap Therapy order at DC: Not Indicated Exam - Physical Exam Narrative exam: Gen: WDWN, NAD, Awake, Alert, Orientated HEENT: NCAT, EOMI, PERRL, OP Clear Neck: supple, no adenopathy, no thyromegaly, no JVD CVS/Heart: RRR, normal S1S2, pulses present bilaterally Chest/Lungs: diminished bs bilateral, Symmetrical chest expansion, good air en try bilaterally GI/Abdomen: soft, NTND, good bowel sounds, no guarding or rebound /Bladder: no suprapubic tenderness, no CVA or paraspinal tenderness Extermity/Skin: no c/c/e, no obvious rash MSK: FROM x 4 Neuro: CN 2-12 grossly intact, no new focal deficits Psych: calm - Constitutional Vitals: Temp Pulse Resp BP Pulse Ox 98.2 F 95 H 19 120/65 98 05/18/19 11:30 05/18/19 11:30 05/18/19 11:30 05/18/19 11:30 05/18/19 11:30 Plan Activity: other (no strenous activity) Diet: low salt, diabetic Special Instructions: record daily BP diary, record blood sugar diary (tidac) Follow up with: MAICOL MCCLELLAN [Other] - 3-5 Days
--- NOTE | 2019-05-18 16:34 | Consultation ---
History of Present Illness Consult date: 05/18/19 Requesting physician: ANGELITO GIL Reason for consult: COPD History of present illness: Pt. has hx of COPD and chronic SOB w/ any exertion. 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 Albuterol neb did not help. She was hypoxic when EMS arrived. She has had wheezing, cough, chest congestion. No fevers, chills, chest pain, hemoptysis. Initially stabilized on BIPAP, now on nasal cannula and feeling better w/ respect to her SOB. Also has "heavy breathing" at night per friend. Past History Past Medical History: COPD Social history: smoking, full code. denies: alcohol abuse, prescription drug abuse, IV drug use Family history: other (No pulm issues reported) Medications and Allergies Allergies Allergy/AdvReac Type Severity Reaction Status Date / Time cetirizine [From [facility]] Allergy Hives Verified 05/17/19 15:59 codeine Allergy Itching Verified 04/18/15 18:49 Penicillins Allergy Hives Verified 04/18/15 18:49 pseudoephedrine Allergy Anaphylaxis Verified 05/17/19 15:59 [From [facility]] Sulfa (Sulfonamide Allergy Unknown Verified 04/18/15 18:49 Antibiotics) Home Medications Medication Instructions Recorded Confirmed Last Taken Type ALBUTEROL Inhaler (OR & NICU) 2 puff IH QID PRN 05/17/19 05/17/19 2 Days Ago History [ProAir HFA Inhaler] ~05/15/19 Ipratropium/Albuterol Sulfate 1 ampul IH Q6HR PRN 05/17/19 05/17/19 1 Day Ago History [DUONEB *Not for PRN Use*] ~05/16/19 Tiotropium Br/Olodaterol HCl 4 gm IH BID 05/17/19 05/17/19 1 Day Ago History [Stiolto Respimat Inhal [place]] ~05/16/19 methylPREDNISolone Sod Suc 80 mg IV Q8HR vial 05/18/19 Unknown Rx [Solu-MEDROL] Active Meds: Active Medications Acetaminophen (Tylenol) 650 mg PO Q4H PRN PRN Reason: Pain MILD(1-3)/Fever >100.5/RIOS Last Admin: 05/18/19 14:48 Dose: 650 mg Documented by: Albuterol (Proventil) 2.5 mg IH Q4HRT PRN PRN Reason: Shortness Of Breath Albuterol/Ipratropium (Duoneb *Not For Prn Use*) 1 ampul IH QIDRT [facility] Last Admin: 05/18/19 13:33 Dose: 1 ampul Documented by: Enoxaparin Sodium (Lovenox) 40 mg SUB-Q QDAY@2200 [facility] Last Admin: 05/17/19 22:23 Dose: 40 mg Documented by: Famotidine (Pepcid) 20 mg PO BID [facility] Last Admin: 05/18/19 10:12 Dose: 20 mg Documented by: Furosemide (Lasix) 40 mg IV QDAY [facility] Hydromorphone HCl (Dilaudid) 0.5 mg IV Q3H PRN PRN Reason: Pain , Severe (7-10) Levofloxacin/Dextrose (Levaquin 750mg/150ml) 750 mg in 150 mls @ 100 mls/hr IV Q24H [facility]; Protocol Stop: 05/21/19 23:29 Last Admin: 05/17/19 22:23 Dose: 100 mls/hr Documented by: Methylprednisolone Sodium Succinate (Solu-Medrol) 80 mg IV Q8HR [facility] Last Admin: 05/18/19 14:48 Dose: 80 mg Documented by: Ondansetron HCl (Zofran) 4 mg IV Q8H PRN PRN Reason: Nausea And Vomiting Oxycodone/Acetaminophen (Percocet 5/325) 1 tab PO Q6H PRN PRN Reason: Pain, Moderate (4-6) Sodium Chloride (Sodium Chloride Flush Syringe 10 Ml) 10 ml IV BID [facility] Last Admin: 05/18/19 10:12 Dose: 10 ml Documented by: Sodium Chloride (Sodium Chloride Flush Syringe 10 Ml) 10 ml IV PRN PRN PRN Reason: LINE FLUSH Zolpidem Tartrate (Ambien) 5 mg PO QHS PRN PRN Reason: Insomnia Review of Systems All systems: negative Physical Examination Vital signs: Vital Signs Temp Pulse Resp BP Pulse Ox 97.8 F 103 H 23 123/74 99 05/17/19 10:05 05/17/19 10:05 05/17/19 10:05 05/17/19 10:05 05/17/19 10:05 Vital Signs - 24 hr 05/18/19 14:00 Pulse Rate [ 86 Apical] Pulse Rate [ 86 Left Radial] Pulse Rate [ 86 Right Radial] Respiratory 24 Rate O2 Sat by Pulse 98 Oximetry General appearance: no acute distress, alert Eyes: non-icteric ENT: oropharynx moist Neck: supple Effort: normal Ascultation: Bilateral: wheezes, rhonchi Cardiovascular: regular rate and rhythm (no mrg) Gastrointestinal: normoactive bowel sounds, soft, non-tender, non-distended Integumentary: normal Extremities: no cyanosis, pink and warm, edema (trace bilateral LE edema) normal mental status, non-focal exam, pupils equal and round, CN II-XII normal mood appropriate, affect normal Results - Laboratory Findings CBC and BMP: 05/18/19 Unknown 05/18/19 04:00 ABG POC ABG pH 7.299 (7.35-7.45) L 05/17/19 11:24 POC ABG pCO2 47.0 (35-45) H 05/17/19 11:24 POC ABG pO2 125 (80-105) H 05/17/19 11:24 POC ABG HCO3 23.1 (22-26 mml/L) 05/17/19 11:24 POC ABG Total CO2 25 (23-27mmol/L) 05/17/19 11:24 POC ABG O2 Sat 98 05/17/19 11:24 PT/INR, D-dimer PT 13.1 Sec. (12.2-14.9) 05/17/19 10:35 INR 1.02 (0.87-1.13) 05/17/19 10:35 D-Dimer 709.26 ng/mlDDU (0-234) H 05/17/19 10:35 Abnormal lab findings: Abnormal Labs 05/17/19 05/17/19 05/17/19 10:35 10:35 10:35 RBC 5.18 H MCH 26 L RDW 15.7 H Lymph % (Auto) 44.0 H [place] % (Auto) 7.4 H Lymph # Seg Neutrophils % D-Dimer 709.26 H POC ABG pH POC ABG pCO2 POC ABG pO2 Creatinine Glucose 192 H Hemoglobin A1c Troponin T Albumin 05/17/19 05/17/19 05/17/19 10:35 11:24 13:19 RBC MCH RDW Lymph % (Auto) [place] % (Auto) Lymph # Seg Neutrophils % D-Dimer POC ABG pH 7.299 L POC ABG pCO2 47.0 H POC ABG pO2 125 H Creatinine Glucose Hemoglobin A1c 6.8 H Troponin T 0.090 H D Albumin 05/18/19 05/18/19 04:00 Unknown RBC MCH 26 L RDW 15.6 H Lymph % (Auto) 11.4 L [place] % (Auto) Lymph # 1.0 L Seg Neutrophils % 86.6 H D-Dimer POC ABG pH POC ABG pCO2 POC ABG pO2 Creatinine 0.6 L Glucose 167 H Hemoglobin A1c Troponin T Albumin 3.6 L - Diagnostic Findings Chest x-ray: report reviewed, image reviewed CT scan - chest: report reviewed, image reviewed (mild emphysema, bibasilar scarring or atelectasis, probably mild bronchiectasis RLL) Assessment and Plan Imp: 1. Acute bronchitis 2. Centrilobular emphysema/COPD exac. 3. Acute respiratory failure, hypoxia/hypercapnea 4. Chronic nicotine dependence, cigarettes 5. R/o Pulm HTN 6. Probable mild RLL bronchiectasis Rec: 1. Solumedrol, Levaquin, Duonebs and monitor for daily improvement 2. Home O2 eval. needed prior to d/c 3. Recommend continuing the Stiolto at d/c, and add ICS such as QVAR Redihaler BID given current exacerbation; needs Rx for Proair HFA and can continue Albuterol nebs prn 4. Dalires should also be considered as outpatient 5. Stop smoking, counseled 6. Needs close pulmonary f/u at [place] for PFTs, PSG, and further optimization of her COPD, patient understands 7. F/u Echo done today Plan of care reviewed in detail with patient/friend at bedside, they understand/agree Thanks kindly for the consult. Will follow w/ you.
== END 2019-05-18 16:59 | disposition short-term general hospital (02) | DRG 189 ==
LOC: ED 10:04 → 4A 13:38
PROVIDERS: ADMIT Internal Medicine; ATTEND Internal Medicine
PROC: 5A09357 Assistance with Respiratory Ventilation, Less than 24 Consecutive Hours, Continuous Positive Airway Pressure (ICD-10-PCS; principal; 2019-05-17)
PROC: 4A033R1 Measurement of Arterial Saturation, Peripheral, Percutaneous Approach (ICD-10-PCS; 2019-05-17)
DX: J96.21 Acute and chronic respiratory failure with hypoxia (principal); G93.41 Metabolic encephalopathy; E78.00 Pure hypercholesterolemia, unspecified; J43.2 Centrilobular emphysema; I27.20 Pulmonary hypertension, unspecified; J96.22 Acute and chronic respiratory failure with hypercapnia; J20.9 Acute bronchitis, unspecified; F17.210 Nicotine dependence, cigarettes, uncomplicated; E11.9 Type 2 diabetes mellitus without complications; Z95.1 Presence of aortocoronary bypass graft; Z88.5 Allergy status to narcotic agent; Z88.0 Allergy status to penicillin; Z88.2 Allergy status to sulfonamides; Z79.899 Other long term (current) drug therapy; Z90.710 Acquired absence of both cervix and uterus; Z82.49 Family history of ischemic heart disease and other diseases of the circulatory system; Z71.6 Tobacco abuse counseling; Z79.84 Long term (current) use of oral hypoglycemic drugs
CPT/HCPCS: 36415; 71045; 71275; 80048; 80053; 80061; 80076; 81001; 82803; 83036; 83880; 84484; 85025; 85379; 85610; 85730; 93005; 93010; 93306; 94640; 94644; 94760; 96374; 99406; G0378; J1650; J1956; J2405; J2930; J7030; Q9967

== ENCOUNTER 2020-09-24 06:35 | Inpatient (IN) | payer MEDICARE ==
[2020-09-24] MEDS ORDERED: SODIUM CHLORIDE 0.9% 1000 ML 1,000 ML IV ONE (07:05)
[2020-09-24] MEDS ORDERED: LIP THERAPY VASELINE TP PRN (07:18)
[2020-09-24] MEDS ORDERED: MINERAL OIL/PETROLATUM, WHITE OPHTH OINT 3.5 GM OU PRN (07:18)
[2020-09-24 07:39] LABS: INR 1.15 (0.87-1.13)
--- NOTE | 2020-09-24 07:40 | XRay Report ---
CHEST 1 VIEW 09/24/2020 7:21 AM INDICATION / CLINICAL INFORMATION: intubation. COMPARISON: 05/17/19 FINDINGS: SUPPORT DEVICES: Endotracheal tube has been placed with the tip 1.5 cm above the billie. Esophagogast elisabeth tube passes below the diaphragm into the stomach. Right jugular central line projects over the doss perior vena cava. HEART / MEDIASTINUM: Heart is upper normal size. LUNGS / PLEURA: Borderline interstitial edema. No pneumothorax. ADDITIONAL FINDINGS: No significant additional findings. IMPRESSION: 1. Endotracheal tube in expected position. Signer Name: Mary Hernandez MD Signed: 09/24/2020 7:35 AM Workstation Name: [id number]
[2020-09-24 07:43] LABS: Eosinophils # (Auto) 0.3 K/mm3 (0.0-0.4); Eosinophils % (Auto) 1.1 % (0.0-4.3); Mean Corpuscular HGB Conc 30 % (30-34); Mean Corpuscular Volume 85 fl (79-97); Monocytes # (Auto) 1.2 K/mm3 (0.0-0.8); Monocytes % (Auto) 4.7 % (0.0-7.3); Platelet Count 184 K/mm3 (140-440); Red Blood Count 5.23 M/mm3 (3.65-5.03); Red Cell Distribution Width 18.2 % (13.2-15.2)
[2020-09-24 07:48] LABS: Hematocrit 44.6 % (30.3-42.9); Hemoglobin 13.5 gm/dl (10.1-14.3)
[2020-09-24 07:49] LABS: Basophils % (Auto) 0.2 % (0.0-1.8); Lymphocytes # (Auto) 11.2 K/mm3 (1.2-5.4); Lymphocytes % (Auto) 42.7 % (13.4-35.0)
[2020-09-24] MEDS ORDERED: CEFEPIME/NS 1 GM/100 ML 1 GM/100 ML BAG IV ONE (08:04)
[2020-09-24] MEDS ORDERED: AZITHROMYCIN/NS 500 MG/250 ML 500 MG/250 ML BAG IV ONE (08:04)
[2020-09-24 08:05] LABS: Bacteria,Urine 1+ /HPF (Negative); Bilirubin,Urine NEG (Negative); Blood,Urine SM (Negative); Color,Urine Straw (Yellow); Mucus,Urine FEW /HPF; Urobilinogen,Urine < 2.0 mg/dL (<2.0)
[2020-09-24 08:20] LABS: Creatine Kinase MB 4.4 ng/mL (0.0-4.0)
[2020-09-24 08:22] LABS: Alanine Aminotransferase 185 units/L (7-56); Albumin 3.7 g/dL (3.9-5); BUN/Creatinine Ratio 12; Blood Urea Nitrogen 14 mg/dL (7-17); Calcium 9.1 mg/dL (8.4-10.2); Hemolysis Index 20
[2020-09-24 08:23] LABS: Bilirubin,Direct < 0.2 mg/dL (0-0.2)
--- NOTE | 2020-09-24 08:23 | XRay Report ---
Abdomen single view INDICATION: Abdominal pain IMPRESSION: The esophagogastric tube terminates in the expected region of the distal stomach. Multipl e dilated loops of small bowel present. Signer Name: Loi Medina MD Signed: 09/24/2020 8:19 AM Workstation Name: [id number]
--- NOTE | 2020-09-24 08:26 | Emergency Department Report ---
ED CPR HPI - General Chief Complaint: Cardiac Arrest/CPR Stated Complaint: CARDIAC Time Seen by Provider: 09/24/20 07:14 Source: EMS Mode of arrival: Stretcher Limitations: Altered Mental Status, Other - History of Present Illness Initial Comments: This is a 70-year-old lady who has been admitted to this facility for COPD and hypoxic respiratory failure. Paramedics state that the patient is not on home oxygen. I have not verified this with the family. Medics transported the patient CPR in progress. They had placed a Dean air and delivered I believe 2 mg of epinephrine prior to arrival. They stated that the patient was in asystole for approximately 15 minutes. I believe it is the patient's that found her in respiratory distress. He states that she apparently needed rescue breathing. He performed both hyrwv-cr-xonls resuscitation as well as chest compressions waiting on financial institution treasurer arrival. Upon arrival, I noted that the patient actually did have a pulse. The heart rate was 130 and it appeared to be sinus tachycardia. Resuscitative efforts continued. The patient was sedated with an endotracheal tube. A right internal jugular line was placed. Initially the blood pressure was high. Later it became normotensive. It started to drop and the patient was given a 2 L bolus. Finally she was placed on Levophed. Initially the patient was found to be completely unresponsive. The family was counseled as to the likelihood of some degree of anoxic brain injury. Upon observation the patient demonstrated some eye-opening which appeared to be related to stimuli. She did not have any spontaneous movement of her extremities. She is not able to follow commands. MD Complaint: found unresponsive (By medics) -: minute(s) Place: home Shock Advised: No Initial Findings in the Field: agonal ROSC in the Field: No (According to medics in asystole. ROSC on arrival.) Associated Injuries: No Associated Symptoms: other (Family states no apparent symptoms last night) Treatments Prior to Arrival: other airway device, epinephrine mgs # - Related Data Home Medications Medication Instructions Recorded Confirmed Last Taken Albuterol Mdi (or & Nicu Only) 2 puff IH QID PRN 05/17/19 05/17/19 2 Days Ago [ProAir HFA Inhaler] ~05/15/19 Ipratropium/Albuterol Sulfate 1 ampul IH Q6HR PRN 05/17/19 05/17/19 1 Day Ago [DUONEB *Not for PRN Use*] ~05/16/19 Tiotropium Br/Olodaterol HCl 4 gm IH BID 05/17/19 05/17/19 1 Day Ago [Stiolto Respimat Inhal [place]] ~05/16/19 Previous Rx's Medication Instructions Recorded Last Taken Type methylPREDNISolone Sod Suc 80 mg IV Q8HR vial 05/18/19 Unknown Rx [Solu-MEDROL] Allergies Allergy/AdvReac Type Severity Reaction Status Date / Time cetirizine [From Zyrtec] Allergy Hives Verified 05/17/19 15:59 codeine Allergy Itching Verified 04/18/15 18:49 Penicillins Allergy Hives Verified 04/18/15 18:49 pseudoephedrine Allergy Anaphylaxis Verified 05/17/19 15:59 [From Sudafed] Sulfa (Sulfonamide Allergy Unknown Verified 04/18/15 18:49 Antibiotics) ED Review of Systems ROS: Stated complaint: CARDIAC Other details as noted in HPI Comment: Unobtainable due to pts medical conditions ED Past Medical Hx - Past Medical History Hx Diabetes: Yes (borderline) Hx Arthritis: Yes Hx COPD: Yes Hx HIV: No Additional medical history: high cholesterol - Surgical History Additional Surgical History: hysterectomy - Social History Smoking Status: Unknown if ever smoked - Medications Home Medications: Home Medications Medication Instructions Recorded Confirmed Last Taken Type Albuterol Mdi (or & Nicu Only) 2 puff IH QID PRN 05/17/19 05/17/19 2 Days Ago History [ProAir HFA Inhaler] ~05/15/19 Ipratropium/Albuterol Sulfate 1 ampul IH Q6HR PRN 05/17/19 05/17/19 1 Day Ago History [DUONEB *Not for PRN Use*] ~05/16/19 Tiotropium Br/Olodaterol HCl 4 gm IH BID 05/17/19 05/17/19 1 Day Ago History [Stiolto Respimat Inhal [place]] ~05/16/19 methylPREDNISolone Sod Suc 80 mg IV Q8HR vial 05/18/19 Unknown Rx [Solu-MEDROL] ED Physical Exam - General Limitations: Altered Mental Status (Completely unresponsive) General appearance: obtunded - Head Head exam: Present: atraumatic - Eye Eye exam: Present: other (Pupils approximately mid position and not apparently reactive in ambient light) Pupils: Present: other (Symmetrical) - ENT ENT exam: Present: other (Dean air in place) - Neck Neck exam: Present: full ROM, other (External jugular veins are prominent) - Respiratory Respiratory exam: Present: other (Breath sounds present with Dean air ventilation) - Cardiovascular Cardiovascular Exam: Present: tachycardia - GI/Abdominal GI/Abdominal exam: Present: soft. Absent: distended - Extremities Exam Extremities exam: Present: normal inspection - Back Exam Back exam: Present: other (Limited visibility) - Neurological Exam Neurological exam: Present: other (GCS 3 on arrival) - Skin Skin exam: Present: warm, dry, intact, normal color. Absent: rash ED Course Vital Signs 09/24/20 09/24/20 06:35 07:16 Pulse Rate 135 H 120 H Blood Pressure 169/76 Blood Pressure 150/57 [Left] O2 Sat by Pulse 99 100 Oximetry - Reevaluation(s) Reevaluation #1: Patient does appear to demonstrate some cortical function. She does not have spontaneous movement of her extremities only eye-opening and some blinking which does appear to be related to stimuli. I will order a CT of the patient's head. I will also order a CT of the patient's abdomen considering her elevated white blood cell count and some dilated loops on x-ray. She received further resuscitative efforts to include fluids and empiric antibiotics. She is admitted to the hospital service for further care and evaluation. Family has been counseled. Case was discussed with hospitalist. 09/24/20 08:37 09/24/20 08:39 - Central Line Placement Right IJ Consent Obtained: emergent situation Time Out Performed: Yes Patient Placed on Monitor/Pulse Ox: Yes MD Prep: mask, gown, gloves Central Line Prep: Chlorhexidine scrub Ultrasound Used for Placement: No Central Line Lumen Inserted: triple Bloods Obtained for Lab: Yes Central Line Position: good blood return (Venous nonpulsatile), sutured in place with 3-0 Dressing Applied: Tegaderm Post Procedure X-Ray: tip of catheter in good p Patient Tolerated Procedure: well Complications: none Additional Comments: Single puncture of the IJ in the right anterior triangle. Usual sterile fashion, Seldinger technique. - Intubation Time Out Performed: No Laryngoscope: Polo Size: 4 ET Tube Size: 7.5 Tube Secured Depth (cm): 24 Tube Secured Location: lips Tube Placement Confirmation: visualized tube passing t, no breath sounds over epi, confirmation by capnometr Patient Tolerated Procedure: well Intubation Complications: none ED Medical Decision Making - Lab Data Result diagrams: 09/24/20 07:08 09/24/20 07:08 Laboratory Results - last 24 hr 09/24/20 09/24/20 09/24/20 07:08 07:08 07:08 WBC 26.2 H RBC 5.23 H Hgb 13.5 Hct 44.6 H MCV 85 MCH 26 L MCHC 30 RDW 18.2 H Plt Count 184 Lymph % (Auto) 42.7 H [place] % (Auto) 4.7 Eos % (Auto) 1.1 Baso % (Auto) 0.2 Lymph # (Auto) 11.2 H [place] # (Auto) 1.2 H Eos # (Auto) 0.3 Baso # (Auto) 0.0 Seg Neutrophils % 51.3 Seg Neutrophils # 13.4 H PT 14.6 INR 1.15 H APTT 23.0 L ABG pH POC ABG pCO2 POC ABG pO2 POC ABG HCO3 POC ABG Base Excess ABG Hemoglobin ABG Oxyhemoglobin ABG Methemoglobin ABG Sodium ABG Potassium ABG Chloride ABG Glucose Carboxyhemoglobin FiO2 Sodium 141 Potassium 3.9 Chloride 98.3 Carbon Dioxide 22 Anion Gap 25 BUN 14 Creatinine 1.2 Estimated GFR 54 BUN/Creatinine Ratio 12 Glucose 293 H Calcium 9.1 Magnesium 2.90 H Total Bilirubin 0.40 Direct Bilirubin < 0.2 AST 178 H ALT 185 H Alkaline Phosphatase 144 H Lactate Dehydrogenase 667 H Total Creatine Kinase 273 H CK-MB (CK-2) 4.4 H CK-MB (CK-2) Rel Index 1.6 Troponin T < 0.010 C-Reactive Protein 0.20 NT-Pro-B Natriuret Pep 656.3 Total Protein 6.0 L Albumin 3.7 L Albumin/Globulin Ratio 1.6 Arterial Blood Glucose Arterial Blood Ionized Calcium Urine Color Urine Turbidity Urine pH Ur Specific [place] Urine Protein Urine Glucose (UA) Urine Ketones Urine Blood Urine Nitrite Urine Bilirubin Urine Urobilinogen Ur Leukocyte Esterase Urine WBC (Auto) Urine RBC (Auto) Urine Bacteria (Auto) Urine Mucus 09/24/20 09/24/20 07:15 08:02 WBC RBC Hgb Hct MCV MCH MCHC RDW Plt Count Lymph % (Auto) [place] % (Auto) Eos % (Auto) Baso % (Auto) Lymph # (Auto) [place] # (Auto) Eos # (Auto) Baso # (Auto) Seg Neutrophils % Seg Neutrophils # PT INR APTT ABG pH 7.218 L POC ABG pCO2 25.8 L POC ABG pO2 203.9 H POC ABG HCO3 10.3 POC ABG Base Excess -16.0 ABG Hemoglobin 8.7 L ABG Oxyhemoglobin 97.6 ABG Methemoglobin 0.3 ABG Sodium 143.1 ABG Potassium 2.0 L ABG Chloride 122.0 H ABG Glucose 129 H Carboxyhemoglobin 1.1 FiO2 100.0 Sodium Potassium Chloride Carbon Dioxide Anion Gap BUN Creatinine Estimated GFR BUN/Creatinine Ratio Glucose Calcium Magnesium Total Bilirubin Direct Bilirubin AST ALT Alkaline Phosphatase Lactate Dehydrogenase Total Creatine Kinase CK-MB (CK-2) CK-MB (CK-2) Rel Index Troponin T C-Reactive Protein NT-Pro-B Natriuret Pep Total Protein Albumin Albumin/Globulin Ratio Arterial Blood Glucose 129 H Arterial Blood Ionized Calcium 3.2 L Urine Color Straw Urine Turbidity Slightly-cloudy Urine pH 7.0 Ur Specific [place] 1.009 Urine Protein 100 mg/dl Urine Glucose (UA) 150 Urine Ketones Neg Urine Blood Sm Urine Nitrite Neg Urine Bilirubin Neg Urine Urobilinogen < 2.0 Ur Leukocyte Esterase Neg Urine WBC (Auto) 9.0 H Urine RBC (Auto) 11.0 Urine Bacteria (Auto) 1+ Urine Mucus Few - EKG Data -: EKG Interpreted by Pa EKG shows normal: sinus rhythm, axis, intervals, QRS complexes, ST-T waves - EKG Data Interpretation: no acute changes - Radiology Data Radiology results: image reviewed (A lot of chronic changes tubes in good position) Critical care attestation.: If time is entered above; I have spent that time in minutes in the direct care of this critically ill patient, excluding procedure time. ED Disposition Clinical Impression: Cardiac arrest, Shock liver, Anoxic brain injury Respiratory failure Qualifiers: Chronicity: acute Respiratory failure complication: unspecified whether with hypoxia or hypercapnia Qualified Code(s): J96.00 - Acute respiratory failure, unspecified whether with hypoxia or hypercapnia Type 2 diabetes mellitus Qualifiers: Diabetes mellitus terminal press operator insulin use: unspecified terminal press operator insulin use status Diabetes mellitus complication status: without complication Qualified Code(s): E11.9 - Type 2 diabetes mellitus without complications COPD (chronic obstructive pulmonary disease) Qualifiers: COPD type: emphysema Emphysema type: unspecified Qualified Code(s): J43.9 - Emphysema, unspecified Disposition: [id number] OP ADMIT IP TO THIS HOSP Is pt being admited?: Yes Does the pt Need Aspirin: Yes Condition: Stable Instructions: Diabetes Mellitus Type 2 in Adults (ED), Chronic Obstructive Pulmonary Disease (ED) Referrals: PRIMARY CARE,MD [Primary Care Provider] - 3-5 Days
[2020-09-24] MEDS: LORazepam 2 MG/ML VIAL IV PRN ×3 (08:30→22:28)
[2020-09-24] MEDS ORDERED: ASPIRIN 300 MG RECT SUPP PR NR (08:42)
[2020-09-24] MEDS: NORepinephrine/NS 4 MG-250 ML 4 MG/250 ML BAG IV SCH ×2 (08:42→12:54)
[2020-09-24] MEDS ORDERED: ASPIRIN 600 MG RECT SUPP PR ONE (08:47)
[2020-09-24 08:56] LABS: Total Cells Counted 100
[2020-09-24 08:57] LABS: Myelocytes # (Manual) 0.3 K/mm3
[2020-09-24] MEDS ORDERED: LORazepam 100 MG in SODIUM CHLORIDE 0.9% 50 ML, EMPTY BAG 0 ML IV SCH (09:00)
[2020-09-24 09:04] LABS: Hypochromasia 1+
[2020-09-24 09:07] LABS: Platelet Estimate Consistent w Auto; Schistocytes Few
--- NOTE | 2020-09-24 09:09 | History and Physical Report ---
History of Present Illness Date of examination: 09/24/20 Date of admission: 09/24/20 Chief complaint: S/p cardiac arrest History of present illness: This is a 70-year-old lady with a history of tobacco abuse and COPD not on home oxygen presented to hospital today after having a cardiac arrest at home. Per patient was feeling sick for about a week with diffuse wheezing and difficulty to sleep at night. She presented to a urgent care center, her Covid test that time was negative and was diagnosed with COPD exacerbation and mild pneumonia. Patient was given a tapering dose of prednisone and antibiotic. Per patient was getting better and actually was able to sleep good for last 2 night prior to this admission. Today patient was getting dressed up and per she suddenly then blacked out and started to gasp for the air. said patient eventually became unresponsive but her eyes were open, he initiated chest compression and [id number] breathing. EMS was called and she was transported to [facility] ER. When patient reached ER the CPR was in progress. They had placed a Dean air and delivered 2 mg of epinephrine prior to arrival. Per EMS the patient was in asystole for approximately 15 minutes. Upon arrival, ER physician noted that the patient actually did have a pulse. The patient was sedated with an endotracheal tube. A right internal jugular line was placed. Initially the blood pressure was high. Later it became normotensive. It started to drop and the patient was given a 2 L bolus. Finally she was placed on Levophed. Initially the patient was found to be completely unresponsive, Upon observation the patient demonstrated some eye-opening which appeared to be related to stimuli. She did not have any spontaneous movement of her extremities. She was not able to follow commands. Past History Past Medical History: COPD Past Surgical History: No surgical history Social history: smoking (1/2 Pack a day ). denies: alcohol abuse, IV drug use Family history: other (Father has h/o CHF. Sister has emphesema. ) Medications and Allergies Allergies Allergy/AdvReac Type Severity Reaction Status Date / Time cetirizine [From Zyrtec] Allergy Hives Verified 05/17/19 15:59 codeine Allergy Itching Verified 04/18/15 18:49 Penicillins Allergy Hives Verified 04/18/15 18:49 pseudoephedrine Allergy Anaphylaxis Verified 05/17/19 15:59 [From Sudafed] Sulfa (Sulfonamide Allergy Unknown Verified 04/18/15 18:49 Antibiotics) Home Medications Medication Instructions Recorded Confirmed Last Taken Type Albuterol Mdi (or & Nicu Only) 2 puff IH QID PRN 05/17/19 05/17/19 2 Days Ago History [ProAir HFA Inhaler] ~05/15/19 Ipratropium/Albuterol Sulfate 1 ampul IH Q6HR PRN 05/17/19 05/17/19 1 Day Ago History [DUONEB *Not for PRN Use*] ~05/16/19 Tiotropium Br/Olodaterol HCl 4 gm IH BID 05/17/19 05/17/19 1 Day Ago History [Stiolto Respimat Inhal [place]] ~05/16/19 methylPREDNISolone Sod Suc 80 mg IV Q8HR vial 05/18/19 Unknown Rx [Solu-MEDROL] Active Meds: Active Medications Aspirin (Aspirin 300 Mg Rect Supp) 300 mg NM ONCE NR Stop: 09/24/20 10:00 Hydrophilic Ointment (Lip Therapy Vaseline) 1 applic TP Q2HR PRN PRN Reason: Dry Lips Norepinephrine (Levophed Drip 4 Mg/Ns 250 Ml) 4 mg in 250 mls @ 7.5 mls/hr IV TITR L[place]; Protocol Last Admin: 09/24/20 08:42 Dose: 2 mcg/min, 7.5 mls/hr Documented by: Lorazepam 100 mg/ Sodium Chloride/ Miscellaneous Information 100 mls @ 1 mls/hr IV TITR LLOYD; Protocol Last Admin: 09/24/20 08:45 Dose: 1 mg/hr, 1 mls/hr Documented by: Lorazepam (Lorazepam 2 Mg/Ml Vial) 2 mg IV Q10MIN PRN PRN Reason: Agitation Last Admin: 09/24/20 08:45 Dose: 2 mg Documented by: Multi-Ingred Cream/Lotion/Oil/Oint (Mineral Oil/Petrolatum, White Ophth Oint 3.5 Gm) 1 applic OU Q4HR PRN PRN Reason: Dry Eye(s) Review of Systems ROS unobtainable: due to endotracheal tube Exam - Physical Exam Narrative exam: Limited physical exam due to COVID-19 pandemic to minimize transmission of the disease and to preserve PPE. Vital reviewed and stable. GENERAL: well-developed well-nourished elderly female lying on bed who is currently intubated. HEENT: Normocephalic. Atraumatic. NECK: Supple. CHEST/LUNGS: Patient on mechanical ventilation HEART/CARDIOVASCULAR: Heart rate stable on telemetry ABDOMEN: Visibly not distended SKIN: There is no rash NEURO: Unresponsive, intubated MUSCULOSKELETAL: No joint effusion EXTRIMITY: No swelling, no cyanosis or clubbing. PSYCH: Unable to assess - Constitutional Vitals: Temp Pulse Resp BP Pulse Ox 85 20 105/61 100 09/24/20 09:01 09/24/20 09:01 09/24/20 09:01 09/24/20 09:01 HEART Score - HEART Score Troponin: Troponin T < 0.010 ng/mL (0.00-0.029) 09/24/20 07:08 Results - Labs CBC & Chem 7: 09/25/20 12:34 09/24/20 07:08 Labs: Abnormal lab results 09/24/20 09/24/20 09/24/20 Range/Units 07:08 07:08 07:08 WBC 26.2 H (4.5-11.0) K/mm3 RBC 5.23 H (3.65-5.03) M/mm3 Hct 44.6 H (30.3-42.9) % MCH 26 L (28-32) pg RDW 18.2 H (13.2-15.2) % Lymph % (Auto) 42.7 H (13.4-35.0) % Lymph # (Auto) 11.2 H (1.2-5.4) K/mm3 [place] # (Auto) 1.2 H (0.0-0.8) K/mm3 Seg Neuts % (Manual) 36.0 L (40.0-70.0) % Lymphocytes % (Manual) 59.0 H (13.4-35.0) % Seg Neutrophils # 13.4 H (1.8-7.7) K/mm3 Seg Neutrophils # Man 9.4 H (1.8-7.7) K/mm3 Lymphocytes # (Manual) 15.5 H (1.2-5.4) K/mm3 INR 1.15 H (0.87-1.13) APTT 23.0 L (24.2-36.6) Sec. ABG pH (7.320-7.450) POC ABG pCO2 (32.0-48.0) mmHg POC ABG pO2 (83-108) mmHg ABG Hemoglobin (12.0-17.5) ABG Potassium (3.40-4.50) mmol/L ABG Chloride (98-107) mmol/L ABG Glucose (65-95) mg/dL Glucose 293 H (65-100) mg/dL Magnesium 2.90 H (1.7-2.3) mg/dL Ferritin (10.0-200.0) ng/mL AST 178 H (5-40) units/L ALT 185 H (7-56) units/L Alkaline Phosphatase 144 H (35-129) units/L Lactate Dehydrogenase 667 H (91-180) units/L Total Creatine Kinase 273 H (30-135) units/L CK-MB (CK-2) 4.4 H (0.0-4.0) ng/mL Total Protein 6.0 L (6.3-8.2) g/dL Albumin 3.7 L (3.9-5) g/dL Arterial Blood Glucose (65-95) mg/dL Arterial Blood Ionized Calcium (4.6-5.3) mg/dL Urine WBC (Auto) (0.0-6.0) /HPF 09/24/20 09/24/20 09/24/20 Range/Units 07:08 07:15 08:02 WBC (4.5-11.0) K/mm3 RBC (3.65-5.03) M/mm3 Hct (30.3-42.9) % MCH (28-32) pg RDW (13.2-15.2) % Lymph % (Auto) (13.4-35.0) % Lymph # (Auto) (1.2-5.4) K/mm3 [place] # (Auto) (0.0-0.8) K/mm3 Seg Neuts % (Manual) (40.0-70.0) % Lymphocytes % (Manual) (13.4-35.0) % Seg Neutrophils # (1.8-7.7) K/mm3 Seg Neutrophils # Man (1.8-7.7) K/mm3 Lymphocytes # (Manual) (1.2-5.4) K/mm3 INR (0.87-1.13) APTT (24.2-36.6) Sec. ABG pH 7.218 L (7.320-7.450) POC ABG pCO2 25.8 L (32.0-48.0) mmHg POC ABG pO2 203.9 H (83-108) mmHg ABG Hemoglobin 8.7 L (12.0-17.5) ABG Potassium 2.0 L (3.40-4.50) mmol/L ABG Chloride 122.0 H (98-107) mmol/L ABG Glucose 129 H (65-95) mg/dL Glucose (65-100) mg/dL Magnesium (1.7-2.3) mg/dL Ferritin 1063.0 H (10.0-200.0) ng/mL AST (5-40) units/L ALT (7-56) units/L Alkaline Phosphatase (35-129) units/L Lactate Dehydrogenase (91-180) units/L Total Creatine Kinase (30-135) units/L CK-MB (CK-2) (0.0-4.0) ng/mL Total Protein (6.3-8.2) g/dL Albumin (3.9-5) g/dL Arterial Blood Glucose 129 H (65-95) mg/dL Arterial Blood Ionized Calcium 3.2 L (4.6-5.3) mg/dL Urine WBC (Auto) 9.0 H (0.0-6.0) /HPF - Imaging and Cardiology Chest x-ray: report reviewed (Mild interstitial edema) CT scan - abdomen: report reviewed (Right lower lobe pneumonia, presence of stool throughout the colon) CT scan - chest: report reviewed (Sign for cortical edema suggestive of initial change for ischemic brain injury) Assessment and Plan Acute metabolic encephalopathy/anoxic brain injury -CT head showed early sign of anoxic brain injury -We will follow clinically, repeat CT head in 72 hours -We will also order for EEG and neuro eval Status post cardiac arrest -Per EMS patient was in asystole for about 15 minutes -we will order 2D echo, continue to monitor -Wean off pressors as tolerated Acute hypoxic respiratory failure -We will rule out COVID-19 pneumonia, will continue to treat for aspiration pneumonia and COPD exacerbation -Placed on IV antibiotic, schedule nebulizer, ordered for COVID-19 test Severe septic shock -Placed on pressor support, will wean off as tolerated -Ordered for panculture will follow result Right lower lobe pneumonia, likely due to aspiration -Continue antibiotic, rule out COVID-19 COVID-19 PUI -Placed on Covid protocol, test ordered Diabetes mellitus type 2 -We will place on sliding scale of insulin Acute COPD exacerbation -Continue steroid and nebulizer breathing treatment Hyperlipidemia, hold statin for now due to elevated LFT Elevated LFT due to shock liver -Continue to monitor History of tobacco abuse, counseling will be done when patient is clinically sta ble The high probability of a clinically significant, sudden or life threatening deterioration of the [[facility], COMMUNICATIONS TECH, 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 The aggregate critical care time was [62] minutes. This time is in addition to time spent performing reported procedures but includes the following: [x] Data Review and interpretation [x] Patient assessment and monitoring of vital signs [x] Documentation [x] Medication orders and management
[2020-09-24] MEDS ORDERED: IPRATROPIUM/ALBUTEROL SULFATE 3 ML AMPUL.NEB IH PRN (11:13)
--- NOTE | 2020-09-24 11:26 | Cat Scan Report ---
CT head without contrast INDICATION : Anoxic brain injury. Postcardiac arrest. TECHNIQUE: Axial imaging performed from the skull apex through the skull base without the use of con trast. All CT examinations performed at this facility utilize dose modulation, iterative reconstruct ion or weight-based dosing, when appropriate, to reduce radiation dose to as low as reasonably achiev able. COMPARISON: None FINDINGS: There is perhaps slight increase cortical effacement of the normal sulci. There is no defin ite loss of distinction between the jimenez-white junction at this time. No acute intracranial hemorrhag e identified. Ventricles are normal in size and appear symmetric. Soft tissues including the orbits appear normal. No acute osseous abnormality. Sinuses and mastoid air cells are clear. The cranio vertebral junction is suboptimally visualized secondary to significant surrounding artifact. There ma y be slight crowding/effacement identified at the foramen magnum possibly secondary to early cerebral edema. IMPRESSION: No acute intracranial hemorrhage. Question mild increased cortical edema with some slight effacement of the CSF containing spaces which could be evidence of early hypoxic ischemic encephalop athy even the above history. No prior exams are available for comparison. If there is strong clinical concern for global hypoxic ischemic injury recommend close short-term follow-up / MRI for greater se nsitivity. Signer Name: Loi Medina MD Signed: 09/24/2020 11:22 AM Workstation Name: [id number]
--- NOTE | 2020-09-24 11:30 | Cat Scan Report ---
CT abdomen pelvis wo con INDICATION / CLINICAL INFORMATION: Elevated white blood cell count, cardiac arrest. Abdominal pain TECHNIQUE: Routine CT abdomen and pelvis without IV contrast All CT scans at this location are performed using C T dose reduction for ALARA by means of automated exposure control. COMPARISON: None available. FINDINGS: Abdomen and pelvis: Mild bibasilar atelectasis present. There is some patchy airspace density within the right lower lung that is nonspecific. The esophagogastric tube terminates within the distal stomach. Exam was somewhat limited secondary to motion artifact. The liver, spleen, pancreas, adrenal glands a nd kidneys are grossly unremarkable within the limits of a noncontrast technique. Large stool burden identified throughout the colon. Urinary bladder is collapsed by Oh catheter. There is mild fluid distention of multiple small bowel loops without transition suspicious for mild adynamic ileus. There is evidence of mild pelvic prolapse. No free air or free fluid is appreciated. There is scattered atherosclerotic calcification throughout a nondilated abdominal aorta. IMPRESSION: 1. No obvious intra-abdominal fluid collection identified. 2. Prominent stool burden throughout the colon. Suspect mild adynamic ileus of the small bowel. 3. Other incidental findings as noted above including patchy consolidation of the right lower lung wh ich could represent a degree of aspiration versus atelectasis. Signer Name: Loi Medina MD Signed: 09/24/2020 11:25 AM Workstation Name: [id number]
[2020-09-24] MEDS ORDERED: ALBUTEROL 2.5 MG/3 ML NEBU IH PRN ×2 (11:40→12:00)
--- NOTE | 2020-09-24 12:17 | Consultation ---
History of Present Illness Consult date: 09/24/20 Requesting physician: KEANU GOETZ History of present illness: HISTORY PER ED MEDICAL RECORDS, PATIENT IS ORALLY INTUABTED POST CARDIAC ARREST This is a 70-year-old lady who has been admitted to this facility for COPD and hypoxic respiratory failure. Paramedics state that the patient is not on home oxygen. I have not verified this with the family. Medics transported the patient CPR in progress. They had placed a Dean air and delivered I believe 2 mg of epinephrine prior to arrival. They stated that the patient was in asystole for approximately 15 minutes. I believe it is the patient's that found her in respiratory distress. He states that she apparently needed rescue breathing. He performed both [id number] resuscitation as well as chest compressions waiting on hand sample maker arrival. Upon arrival, I noted that the patient actually did have a pulse. The heart rate was 130 and it appeared to be sinus tachycardia. Resuscitative efforts continued. The patient was sedated with an endotracheal tube. A right internal jugular line was placed. Initially the blood pressure was high. Later it became normotensive. It started to drop and the patient was given a 2 L bolus. Finally she was placed on Levophed. Initially the patient was found to be completely unresponsive. The family was counseled as to the likelihood of some degree of anoxic brain injury. Upon observation the patient demonstrated some eye-opening which appeared to be related to stimuli. She did not have any spontaneous movement of her e xtremities. She is not able to follow commands. Complaint: found unresponsive (By medics) -: minute(s) Place: home Shock Advised: No Initial Findings in the Field: agonal ROSC in the Field: No (According to medics in asystole. ROSC on arrival.) Associated Injuries: No Associated Symptoms: other (Family states no apparent symptoms last night) Treatments Prior to Arrival: other airway device, epinephrine mgs # - Past Medical History Hx Diabetes: Yes (borderline) Hx Arthritis: Yes Hx COPD: Yes Hx HIV: No Additional medical history: high cholesterol - Surgical History Additional Surgical History: hysterectomy Patient seen and examined. Vitals, labs, medications, chart and imaging reviewed. She is orally intubated, on vasopressor support and sedation Discussion with her daughter- Torrey Pate( [phone]) Per her daughter she works in a [employer] Has an official diagnosis of COPD/emphysema Smoked cigarettes, stopped smoking about 1 year ago (with help of patch nicotine patches), smoked 1PPD for at least 60 years Medications and Allergies Allergies Allergy/AdvReac Type Severity Reaction Status Date / Time cetirizine [From [facility]] Allergy Hives Verified 05/17/19 15:59 codeine Allergy Itching Verified 04/18/15 18:49 Penicillins Allergy Hives Verified 04/18/15 18:49 pseudoephedrine Allergy Anaphylaxis Verified 05/17/19 15:59 [From [facility]] Sulfa (Sulfonamide Allergy Unknown Verified 04/18/15 18:49 Antibiotics) Home Medications Medication Instructions Recorded Confirmed Last Taken Type Albuterol Mdi (or & Nicu Only) 2 puff IH QID PRN 05/17/19 05/17/19 2 Days Ago History [ProAir HFA Inhaler] ~05/15/19 Ipratropium/Albuterol Sulfate 1 ampul IH Q6HR PRN 05/17/19 05/17/19 1 Day Ago History [DUONEB *Not for PRN Use*] ~05/16/19 Tiotropium Br/Olodaterol HCl 4 gm IH BID 05/17/19 05/17/19 1 Day Ago History [Stiolto Respimat Inhal Howe] ~05/16/19 methylPREDNISolone Sod Suc 80 mg IV Q8HR vial 05/18/19 Unknown Rx [Solu-MEDROL] Active Meds: Active Medications Albuterol (Albuterol 2.5 Mg/3 Ml Nebu) 2.5 mg IH Q4H PRN PRN Reason: Shortness Of Breath Albuterol/Ipratropium (Ipratropium/Albuterol Sulfate 3 Ml Ampul.Neb) 1 ampul IH Q6HRT [facility] Dexamethasone (Dexamethasone 4 Mg Tab) 6 mg PO Q12HR [facility] Hydrophilic Ointment (Lip Therapy Vaseline) 1 applic TP Q2HR PRN PRN Reason: Dry Lips Norepinephrine (Levophed Drip 4 Mg/Ns 250 Ml) 4 mg in 250 mls @ 7.5 mls/hr IV TITR [facility]; Protocol Last Titration: 09/24/20 11:45 Dose: 14 mcg/min, 52.5 mls/hr Documented by: Lorazepam 100 mg/ Sodium Chloride/ Miscellaneous Information 100 mls @ 1 mls/hr IV TITR L[facility]YD; Protocol Last Admin: 09/24/20 08:45 Dose: 1 mg/hr, 1 mls/hr Documented by: Azithromycin (Zithromax/Ns) 500 mg in 250 mls @ 250 mls/hr IV Q24H [facility] Cefepime HCl (Cefepime/Ns 1 Gm/100 Ml) 1 gm in 100 mls @ 200 mls/hr IV Q12HR [facility]D; Protocol Lorazepam (Lorazepam 2 Mg/Ml Vial) 2 mg IV Q10MIN PRN PRN Reason: Agitation Last Admin: 09/24/20 08:45 Dose: 2 mg Documented by: Miscellaneous Medication (Tiotropium Br/Olodaterol Hcl [Stiolto Respimat Inhal Howe]) 4 gm IH BID [facility] Multi-Ingred Cream/Lotion/Oil/Oint (Mineral Oil/Petrolatum, White Ophth Oint 3.5 Gm) 1 applic OU Q4HR PRN PRN Reason: Dry Eye(s) Review of Systems ROS unobtainable: due to endotracheal tube, due to mental status Physical Examination Vital signs: Vital Signs Pulse BP Pulse Ox 135 H 150/57 99 09/24/20 06:35 09/24/20 06:35 09/24/20 06:35 - General Limitations: Altered Mental Status (Completely unresponsive) General appearance: obtunded - Head Head exam: Present: atraumatic, normocephalic - Eye Eye exam: Present: other Midpoint Pupils: Present: other (Symmetrical) - ENT ENT exam: Present: orally intubated ETT at 23 cm at the lip - Neck Neck exam: Present: full ROM, other (External jugular veins are prominent) - Respiratory Respiratory exam: Present: other - Cardiovascular Cardiovascular Exam: Present: tachycardia - GI/Abdominal GI/Abdominal exam: Present: soft. Absent: distended - Extremities Exam Extremities exam: Present: normal inspection - Back Exam Back exam: Present: other (Limited visibility) - Neurological Exam Neurological exam: Unresponsive - Skin Skin exam: Present: warm, dry, intact, normal color. Absent: rash Results - Laboratory Findings CBC and BMP: 09/24/20 07:08 09/24/20 07:08 ABG ABG pH 7.218 (7.320-7.450) L 09/24/20 08:02 POC ABG pCO2 25.8 mmHg (32.0-48.0) L 09/24/20 08:02 POC ABG pO2 203.9 mmHg (83-108) H 09/24/20 08:02 POC ABG HCO3 10.3 09/24/20 08:02 PT/INR, D-dimer PT 14.6 Sec. (12.2-14.9) 09/24/20 07:08 INR 1.15 (0.87-1.13) H 09/24/20 07:08 D-Dimer TNR 09/24/20 07:08 Abnormal lab findings: Abnormal Labs 09/24/20 09/24/20 09/24/20 06:40 07:08 07:08 WBC 26.2 H RBC 5.23 H Hct 44.6 H MCH 26 L RDW 18.2 H Lymph % (Auto) 42.7 H Lymph # (Auto) 11.2 H Todd # (Auto) 1.2 H Seg Neuts % (Manual) 36.0 L Lymphocytes % (Manual) 59.0 H Seg Neutrophils # 13.4 H Seg Neutrophils # Man 9.4 H Lymphocytes # (Manual) 15.5 H INR 1.15 H APTT 23.0 L ABG pH POC ABG pCO2 POC ABG pO2 ABG Hemoglobin ABG Potassium ABG Chloride ABG Glucose Glucose POC Glucose 195 H Magnesium Ferritin AST ALT Alkaline Phosphatase Lactate Dehydrogenase Total Creatine Kinase CK-MB (CK-2) Total Protein Albumin Arterial Blood Glucose Arterial Blood Ionized Calcium Urine WBC (Auto) 09/24/20 09/24/20 09/24/20 07:08 07:08 07:15 WBC RBC Hct MCH RDW Lymph % (Auto) Lymph # (Auto) Todd # (Auto) Seg Neuts % (Manual) Lymphocytes % (Manual) Seg Neutrophils # Seg Neutrophils # Man Lymphocytes # (Manual) INR APTT ABG pH POC ABG pCO2 POC ABG pO2 ABG Hemoglobin ABG Potassium ABG Chloride ABG Glucose Glucose 293 H POC Glucose Magnesium 2.90 H Ferritin 1063.0 H AST 178 H ALT 185 H Alkaline Phosphatase 144 H Lactate Dehydrogenase 667 H Total Creatine Kinase 273 H CK-MB (CK-2) 4.4 H Total Protein 6.0 L Albumin 3.7 L Arterial Blood Glucose Arterial Blood Ionized Calcium Urine WBC (Auto) 9.0 H 09/24/20 08:02 WBC RBC Hct MCH RDW Lymph % (Auto) Lymph # (Auto) Todd # (Auto) Seg Neuts % (Manual) Lymphocytes % (Manual) Seg Neutrophils # Seg Neutrophils # Man Lymphocytes # (Manual) INR APTT ABG pH 7.218 L POC ABG pCO2 25.8 L POC ABG pO2 203.9 H ABG Hemoglobin 8.7 L ABG Potassium 2.0 L ABG Chloride 122.0 H ABG Glucose 129 H Glucose POC Glucose Magnesium Ferritin AST ALT Alkaline Phosphatase Lactate Dehydrogenase Total Creatine Kinase CK-MB (CK-2) Total Protein Albumin Arterial Blood Glucose 129 H Arterial Blood Ionized Calcium 3.2 L Urine WBC (Auto) - Diagnostic Findings Chest x-ray: image reviewed Assessment and Plan Status post cardiac arrest, out of hospital with ROSC Acute hypoxic-hypercapnic respiratory failure Severe septic shock COVID-19 pneumonia-PUI Diabetes mellitus type 2 COPD/Emphysema Hyperlipidemia Elevated LFT due to shock liver -Wean vasopressor support for MAP >65 -Stop Ativan to allow for evaluation of mental status -VAP bundle addressed, aspiration precautions HOB >40 degrees -Adjust minute ventilation fro better gas-exchange -Monitor airway pressures, lung protective strategies, monitor P/F ratio -Wean supplemental oxygen for target O2 sats > 92% -Daily assessment for readiness to wean. -continue bronchodilators with pulmonary hygiene per RT -Start trophic enteric feeding via OGT, place interactive web developer consult -Transthoracic echocardiogram to evaluate LVEF and for pulmonary HTN - Accuchecks with glycemic control per SSI (While critically ill target blood glucose of 140-180 mg/dL; avoid hypoglycemia) -Avoid nephrotoxins, renally dose all medications -Avoid benzodiazepines, reduce the possibility of delirium -COVID isolation protocols until COVID testing is resulted - prn analgesia per CPOT score - Maintenance of sleep-wake cycle, avoid delirium - VTE prophylaxis- Enoxaparin -Stress ulcer prophylaxis- Famotidine - ROM exercises - Mobility per facility protocol for pressure ulcer prevention - Monitor hemodynamics closely -Antibiotics per primary service, will consult ID -Get EEG in 48 hours -ABG in am, ABG and CXR as clinically indicated - continue other care per attending / other consultants CONDITION: CRITICAL PROGNOSIS: GUARDED CODE STATUS; FULL CODE Discussed with her daughter Torrey Pate, and she confirms that her mother is full aggressive care, full code in the event of cardiopulmonary arrest The high probability of a clinically significant, sudden or life threatening deterioration of the [HISTOLOGICAL ILLUSTRATOR, respiratory, CVS] system(s) required my full and direct attention, intervention and personal management. The aggregate critical care time was [75] minutes. This time is in addition to time spent performing reported procedures but includes the following: [x] Data Review and interpretation [x] Patient assessment and monitoring of vital signs [x] Documentation [x] Medication orders and management
[2020-09-24] MEDS: DEXAMETHASONE 4 MG TAB PO SCH ×2 (12:52→21:43)
[2020-09-24] MEDS: IPRATROPIUM/ALBUTEROL SULFATE 3 ML AMPUL.NEB IH SCH ×2 (15:05→20:03)
[2020-09-24] MEDS ORDERED: fentaNYL 100 MCG/2 ML INJ IV PRN (15:37)
[2020-09-24] MEDS: CEFEPIME/NS 1 GM/100 ML 1 GM/100 ML BAG IV SCH (21:43)
[2020-09-24] MEDS ORDERED: NON-FORMULARY EACH (Tiotropium Br/Olodaterol Hcl [Stiolto Respimat Inhal Spray] 4 GM Mist. IH SCH (22:00)
[2020-09-25] MEDS: fentaNYL DRIP Premix 2,000 MCG/100 ML BAG IV SCH ×3 (00:46→13:54)
--- NOTE | 2020-09-25 03:22 | XRay Report ---
CHEST 1 VIEW 09/25/2020 2:14 AM INDICATION / CLINICAL INFORMATION: follow up respiratory failure. COMPARISON: 09/24/20 FINDINGS: SUPPORT DEVICES: Unchanged. HEART / MEDIASTINUM: No significant abnormality. LUNGS / PLEURA: No significant pulmonary or pleural abnormality. No pneumothorax. ADDITIONAL FINDINGS: No significant additional findings. IMPRESSION: 1. No significant change. Signer Name: Mary Hernandez MD Signed: 09/25/2020 3:17 AM Workstation Name: [id number]
[2020-09-25] MEDS: IPRATROPIUM/ALBUTEROL SULFATE 3 ML AMPUL.NEB IH SCH ×4 (05:37→20:40)
[2020-09-25] MEDS: CEFEPIME/NS 1 GM/100 ML 1 GM/100 ML BAG IV SCH ×2 (09:24→21:56)
[2020-09-25] MEDS: FAMOTIDINE 20 MG TAB PO SCH (09:25)
[2020-09-25] MEDS: AZITHROMYCIN/NS 500 MG/250 ML 500 MG/250 ML BAG IV SCH (09:25)
[2020-09-25] MEDS: METOPROLOL TARTRATE 50 MG TAB PO SCH ×2 (09:25→21:16)
[2020-09-25] MEDS: DEXAMETHASONE 4 MG TAB PO SCH (09:25)
--- NOTE | 2020-09-25 11:00 | Progress Note ---
Assessment and Plan Status post cardiac arrest, out of hospital with ROSC Acute hypoxic-hypercapnic respiratory failure Severe septic shock COVID-19 pneumonia-PUI Diabetes mellitus type 2 COPD/Emphysema Hyperlipidemia Elevated LFT due to shock liver -Wean vasopressor support for MAP >65 -VAP bundle addressed, aspiration precautions HOB >40 degrees -Monitor airway pressures, lung protective strategies, monitor P/F ratio -Wean supplemental oxygen for target O2 sats > 92% -Daily assessment for readiness to wean. -continue bronchodilators with pulmonary hygiene per RT -Continue enteric feeding via OGT, -Transthoracic echocardiogram to evaluate LVEF and for pulmonary HTN( ordered but pending) - Accuchecks with glycemic control per SSI (While critically ill target blood glucose of 140-180 mg/dL; avoid hypoglycemia) -Avoid nephrotoxins, renally dose all medications -Avoid benzodiazepines, reduce the possibility of delirium -COVID isolation protocols until COVID testing is resulted - prn analgesia per CPOT score - Maintenance of sleep-wake cycle, avoid delirium - VTE prophylaxis- Enoxaparin -Stress ulcer prophylaxis- Famotidine - ROM exercises - Mobility per facility protocol for pressure ulcer prevention - Monitor hemodynamics closely -Antibiotics per primary service,ID consulted -Get EEG in am( pending) recommend Neurology consult -ABG in am, ABG and CXR as clinically indicated - continue other care per attending / other consultants CONDITION: CRITICAL PROGNOSIS: GUARDED CODE STATUS; FULL CODE The high probability of a clinically significant, sudden or life threatening deterioration of the [CITY WELLNESS COORDINATOR, respiratory, CVS] system(s) required my full and direct attention, intervention and personal management. The aggregate critical care time was [35] minutes. This time is in addition to time spent performing reported procedures but includes the following: [x] Data Review and interpretation [x] Patient assessment and monitoring of vital signs [x] Documentation [x] Medication orders and management Subjective Date of service: 09/25/20 Interval history: Patient is seen today for: OOH cardiac arrest with ROSC; Acute hypoxemic- hypercapnic respiratory failure; Septic shock; PUI COVID-19 pneumonia; DM II; COPD/Emphysema; Elevated LFT due to shock liver Seen and examined at bedside; 24hour events reviewed; nursing and respiratory care staff consulted; no adverse overnight events reported to me; resting in bed; resting peacefully in bed; AMS is persistent; No emesis or overt aspiration and no seizures; remains on MVS, did not tolerate SBT this morning Objective - Exam Narrative Exam: - General Limitations: Altered Mental Status (Completely unresponsive) General appearance: obtunded - Head Head exam: Present: atraumatic, normocephalic - Eye Eye exam: Present: other Midpoint Pupils: Present: other (Symmetrical) - ENT ENT exam: Present: orally intubated ETT at 23 cm at the lip - Neck Neck exam: Present: full ROM, other (External jugular veins are prominent) - Respiratory Respiratory exam: Present: other - Cardiovascular Cardiovascular Exam: Present: tachycardia - GI/Abdominal GI/Abdominal exam: Present: soft. Absent: distended - Extremities Exam Extremities exam: Present: normal inspection - Back Exam Back exam: Present: other (Limited visibility) - Neurological Exam Neurological exam: Unresponsive - Skin Skin exam: Present: warm, dry, intact, normal color. Absent: rash Vital Signs - 12hr 09/24/20 09/24/20 09/25/20 23:25 23:30 00:00 Temperature 98.0 F Pulse Rate 112 H 111 H 110 H Pulse Rate [ Anterior Bilateral Throughout] Pulse Rate [ From Monitor] Respiratory 37 H 20 Rate Respiratory Rate [Anterior Bilateral Throughout] Blood Pressure 166/94 167/80 157/91 O2 Sat by Pulse 100 100 100 Oximetry 09/25/20 09/25/20 09/25/20 00:30 01:00 01:30 Temperature Pulse Rate 111 H 113 H 115 H Pulse Rate [ Anterior Bilateral Throughout] Pulse Rate [ From Monitor] Respiratory 20 21 15 Rate Respiratory Rate [Anterior Bilateral Throughout] Blood Pressure 165/107 169/90 165/80 O2 Sat by Pulse 100 100 100 Oximetry 09/25/20 09/25/20 09/25/20 02:00 02:30 02:31 Temperature Pulse Rate 117 H 119 H 119 H Pulse Rate [ Anterior Bilateral Throughout] Pulse Rate [ From Monitor] Respiratory 23 29 H Rate Respiratory Rate [Anterior Bilateral Throughout] Blood Pressure 165/90 169/73 O2 Sat by Pulse 100 100 Oximetry 09/25/20 09/25/20 09/25/20 03:00 03:30 04:00 Temperature 98.7 F Pulse Rate 121 H 120 H 119 H Pulse Rate [ Anterior Bilateral Throughout] Pulse Rate [ From Monitor] Respiratory 22 25 H 27 H Rate Respiratory Rate [Anterior Bilateral Throughout] Blood Pressure 170/86 167/82 163/85 O2 Sat by Pulse 100 100 100 Oximetry 09/25/20 09/25/20 09/25/20 04:30 04:48 05:00 Temperature Pulse Rate 120 H 119 H 120 H Pulse Rate [ Anterior Bilateral Throughout] Pulse Rate [ From Monitor] Respiratory 22 24 Rate Respiratory Rate [Anterior Bilateral Throughout] Blood Pressure 154/84 155/89 155/86 O2 Sat by Pulse 100 100 100 Oximetry 09/25/20 09/25/20 09/25/20 05:30 06:00 06:30 Temperature Pulse Rate 119 H 120 H 120 H Pulse Rate [ Anterior Bilateral Throughout] Pulse Rate [ From Monitor] Respiratory 21 26 H 22 Rate Respiratory Rate [Anterior Bilateral Throughout] Blood Pressure 149/86 153/85 159/88 O2 Sat by Pulse 100 100 100 Oximetry 09/25/20 09/25/20 09/25/20 07:00 07:30 08:00 Temperature 100.1 F H Pulse Rate 121 H 124 H 128 H Pulse Rate [ 125 H Anterior Bilateral Throughout] Pulse Rate [ 126 H From Monitor] Respiratory 28 H 23 27 H Rate Respiratory 26 H Rate [Anterior Bilateral Throughout] Blood Pressure 167/78 148/85 133/71 O2 Sat by Pulse 100 100 97 Oximetry 09/25/20 09/25/20 09/25/20 08:30 09:00 09:25 Temperature Pulse Rate 126 H 125 H 125 H Pulse Rate [ Anterior Bilateral Throughout] Pulse Rate [ From Monitor] Respiratory 26 H 22 Rate Respiratory Rate [Anterior Bilateral Throughout] Blood Pressure 181/90 163/96 164/86 O2 Sat by Pulse 98 97 Oximetry 09/25/20 09/25/20 09:30 10:00 Temperature Pulse Rate 129 H 100 H Pulse Rate [ Anterior Bilateral Throughout] Pulse Rate [ From Monitor] Respiratory 36 H 23 Rate Respiratory Rate [Anterior Bilateral Throughout] Blood Pressure 172/92 162/93 O2 Sat by Pulse 98 99 Oximetry CBC and BMP: 09/27/20 05:15 09/27/20 05:15 ABG, PT/INR, D-dimer: ABG ABG pH 7.429 (7.320-7.450) 09/25/20 04:50 POC ABG pCO2 40.1 mmHg (32.0-48.0) 09/25/20 04:50 POC ABG pO2 133.5 mmHg (83-108) H 09/25/20 04:50 POC ABG HCO3 26 09/25/20 04:50 PT/INR, D-dimer PT 14.6 Sec. (12.2-14.9) 09/24/20 07:08 INR 1.15 (0.87-1.13) H 09/24/20 07:08 D-Dimer TNR 09/24/20 07:08 Abnormal lab findings: Abnormal Labs 09/24/20 09/24/20 09/24/20 06:40 07:08 07:08 WBC 26.2 H RBC 5.23 H Hct 44.6 H MCH 26 L RDW 18.2 H Lymph % (Auto) 42.7 H Lymph # (Auto) 11.2 H [place] # (Auto) 1.2 H Seg Neuts % (Manual) 36.0 L Lymphocytes % (Manual) 59.0 H Seg Neutrophils # 13.4 H Seg Neutrophils # Man 9.4 H Lymphocytes # (Manual) 15.5 H INR 1.15 H APTT 23.0 L ABG pH POC ABG pCO2 POC ABG pO2 ABG Hemoglobin ABG Potassium ABG Chloride ABG Glucose Glucose POC Glucose 195 H Magnesium Ferritin AST ALT Alkaline Phosphatase Lactate Dehydrogenase Total Creatine Kinase CK-MB (CK-2) Total Protein Albumin Arterial Blood Glucose Arterial Blood Ionized Calcium Urine WBC (Auto) 09/24/20 09/24/20 09/24/20 07:08 07:08 07:15 WBC RBC Hct MCH RDW Lymph % (Auto) Lymph # (Auto) [place] # (Auto) Seg Neuts % (Manual) Lymphocytes % (Manual) Seg Neutrophils # Seg Neutrophils # Man Lymphocytes # (Manual) INR APTT ABG pH POC ABG pCO2 POC ABG pO2 ABG Hemoglobin ABG Potassium ABG Chloride ABG Glucose Glucose 293 H POC Glucose Magnesium 2.90 H Ferritin 1063.0 H AST 178 H ALT 185 H Alkaline Phosphatase 144 H Lactate Dehydrogenase 667 H Total Creatine Kinase 273 H CK-MB (CK-2) 4.4 H Total Protein 6.0 L Albumin 3.7 L Arterial Blood Glucose Arterial Blood Ionized Calcium Urine WBC (Auto) 9.0 H 09/24/20 09/24/20 09/24/20 08:02 11:30 17:11 WBC RBC Hct MCH RDW Lymph % (Auto) Lymph # (Auto) [place] # (Auto) Seg Neuts % (Manual) Lymphocytes % (Manual) Seg Neutrophils # Seg Neutrophils # Man Lymphocytes # (Manual) INR APTT ABG pH 7.218 L POC ABG pCO2 25.8 L POC ABG pO2 203.9 H ABG Hemoglobin 8.7 L ABG Potassium 2.0 L ABG Chloride 122.0 H ABG Glucose 129 H Glucose POC Glucose 160 H 115 H Magnesium Ferritin AST ALT Alkaline Phosphatase Lactate Dehydrogenase Total Creatine Kinase CK-MB (CK-2) Total Protein Albumin Arterial Blood Glucose 129 H Arterial Blood Ionized Calcium 3.2 L Urine WBC (Auto) 09/24/20 09/25/20 09/25/20 23:07 04:50 05:18 WBC RBC Hct MCH RDW Lymph % (Auto) Lymph # (Auto) [place] # (Auto) Seg Neuts % (Manual) Lymphocytes % (Manual) Seg Neutrophils # Seg Neutrophils # Man Lymphocytes # (Manual) INR APTT ABG pH POC ABG pCO2 POC ABG pO2 133.5 H ABG Hemoglobin ABG Potassium ABG Chloride ABG Glucose 149 H Glucose POC Glucose 110 H 130 H Magnesium Ferritin AST ALT Alkaline Phosphatase Lactate Dehydrogenase Total Creatine Kinase CK-MB (CK-2) Total Protein Albumin Arterial Blood Glucose 149 H Arterial Blood Ionized Calcium 4.4 L Urine WBC (Auto) Chest x-ray: image reviewed Allied health notes reviewed: RT
[2020-09-25 12:48] LABS: Hematocrit 42.6 % (30.3-42.9); Hemoglobin 13.6 gm/dl (10.1-14.3); Mean Corpuscular HGB Conc 32 % (30-34); Mean Corpuscular Volume 79 fl (79-97); Platelet Count 149 K/mm3 (140-440); Red Blood Count 5.37 M/mm3 (3.65-5.03); Red Cell Distribution Width 17.4 % (13.2-15.2)
--- NOTE | 2020-09-25 13:57 | Progress Note ---
Assessment and Plan Acute metabolic encephalopathy/anoxic brain injury -CT head showed early sign of anoxic brain injury -We will follow clinically, repeat CT head in 72 hours -We will also order for EEG and neuro eval Status post cardiac arrest -Per EMS patient was in asystole for about 15 minutes -we will order 2D echo, continue to monitor -Wean off pressors as tolerated Acute hypoxic respiratory failure - patient intubated -We will rule out COVID-19 pneumonia, will continue to treat for aspiration pneumonia and COPD exacerbation -Placed on IV antibiotic, schedule nebulizer, ordered for COVID-19 test Severe septic shock -Placed on pressor support, will wean off as tolerated -Ordered for panculture will follow result Right lower lobe pneumonia, likely due to aspiration -Continue antibiotic, rule out COVID-19 COVID-19 PUI -Placed on Covid protocol, test ordered Diabetes mellitus type 2 -We will place on sliding scale of insulin Acute COPD exacerbation -Continue steroid and nebulizer breathing treatment Hyperlipidemia, hold statin for now due to elevated LFT Elevated LFT due to shock liver -Continue to monitor History of tobacco abuse, counseling will be done when patient is clinically stable Patient is full code Very poor prognosis The high probability of a clinically significant, sudden or life threatening deterioration of the [cvs, [employer], 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 The aggregate critical care time was [42] minutes. This time is in addition to time spent performing reported procedures but includes the following: [x] Data Review and interpretation [x] Patient assessment and monitoring of vital signs [x] Documentation [x] Medication orders and management Daily course: 09/25: Call patient and updated with the patient's clinical status. Answered all his questions to best of my knowledge and to his satisfaction. Patient has been was informed about patient's CT head findings. Will await for EEG and neuro eval. Continue supportive care for now patient remains on mechanical ventilation. Weaned off from pressor. Will start on tube feeding. Continue to monitor serum chemistry and CBC. COVID-19 test pending. Continue empiric antibiotics. Will order D-dimer and if D-dimer elevated will do work-up for possible PE and DVT. Placed on prophylactic Lovenox dose for now. Subjective Date of service: 09/25/20 Interval history: Patient seen and examined in the ICU Patient remains on mechanical ventilation Currently on 2 pressor support Discussed with RN at the bedside Call patient and updated him about patient's clinical condition and plan of care Objective - Exam Narrative Exam: Limited physical exam due to COVID-19 pandemic to minimize transmission of the disease and to preserve PPE. Vital reviewed and stable. GENERAL: well-developed well-nourished elderly female lying on bed who is currently intubated. HEENT: Normocephalic. Atraumatic. NECK: Supple. CHEST/LUNGS: Patient on mechanical ventilation HEART/CARDIOVASCULAR: Heart rate stable on telemetry ABDOMEN: Visibly not distended SKIN: There is no rash NEURO: Unresponsive, intubated MUSCULOSKELETAL: No joint effusion EXTRIMITY: No swelling, no cyanosis or clubbing. PSYCH: Unable to assess - Constitutional Vitals: Vital Signs - 12hr 09/25/20 09/25/20 09/25/20 02:00 02:30 02:31 Temperature Pulse Rate 117 H 119 H 119 H Pulse Rate [ Anterior Bilateral Throughout] Pulse Rate [ From Monitor] Respiratory 23 29 H Rate Respiratory Rate [Anterior Bilateral Throughout] Blood Pressure 165/90 169/73 O2 Sat by Pulse 100 100 Oximetry 09/25/20 09/25/20 09/25/20 03:00 03:30 04:00 Temperature 98.7 F Pulse Rate 121 H 120 H 119 H Pulse Rate [ Anterior Bilateral Throughout] Pulse Rate [ From Monitor] Respiratory 22 25 H 27 H Rate Respiratory Rate [Anterior Bilateral Throughout] Blood Pressure 170/86 167/82 163/85 O2 Sat by Pulse 100 100 100 Oximetry 09/25/20 09/25/20 09/25/20 04:30 04:48 05:00 Temperature Pulse Rate 120 H 119 H 120 H Pulse Rate [ Anterior Bilateral Throughout] Pulse Rate [ From Monitor] Respiratory 22 24 Rate Respiratory Rate [Anterior Bilateral Throughout] Blood Pressure 154/84 155/89 155/86 O2 Sat by Pulse 100 100 100 Oximetry 09/25/20 09/25/20 09/25/20 05:30 06:00 06:30 Temperature Pulse Rate 119 H 120 H 120 H Pulse Rate [ Anterior Bilateral Throughout] Pulse Rate [ From Monitor] Respiratory 21 26 H 22 Rate Respiratory Rate [Anterior Bilateral Throughout] Blood Pressure 149/86 153/85 159/88 O2 Sat by Pulse 100 100 100 Oximetry 09/25/20 09/25/20 09/25/20 07:00 07:30 08:00 Temperature 100.1 F H Pulse Rate 121 H 124 H 128 H Pulse Rate [ 125 H Anterior Bilateral Throughout] Pulse Rate [ 126 H From Monitor] Respiratory 28 H 23 27 H Rate Respiratory 26 H Rate [Anterior Bilateral Throughout] Blood Pressure 167/78 148/85 133/71 O2 Sat by Pulse 100 100 97 Oximetry 09/25/20 09/25/20 09/25/20 08:30 09:00 09:25 Temperature Pulse Rate 126 H 125 H 125 H Pulse Rate [ Anterior Bilateral Throughout] Pulse Rate [ From Monitor] Respiratory 26 H 22 Rate Respiratory Rate [Anterior Bilateral Throughout] Blood Pressure 181/90 163/96 164/86 O2 Sat by Pulse 98 97 Oximetry 09/25/20 09/25/20 09/25/20 09:30 10:00 10:30 Temperature Pulse Rate 129 H 100 H 91 H Pulse Rate [ Anterior Bilateral Throughout] Pulse Rate [ From Monitor] Respiratory 36 H 23 22 Rate Respiratory Rate [Anterior Bilateral Throughout] Blood Pressure 172/92 162/93 151/90 O2 Sat by Pulse 98 99 99 Oximetry 09/25/20 09/25/20 09/25/20 11:00 11:14 11:30 Temperature Pulse Rate 92 H 92 H 93 H Pulse Rate [ Anterior Bilateral Throughout] Pulse Rate [ From Monitor] Respiratory 23 16 Rate Respiratory Rate [Anterior Bilateral Throughout] Blood Pressure 169/98 167/96 172/91 O2 Sat by Pulse 99 95 96 Oximetry 09/25/20 09/25/20 09/25/20 12:00 12:30 13:00 Temperature 97.7 F Pulse Rate 94 H 94 H 94 H Pulse Rate [ Anterior Bilateral Throughout] Pulse Rate [ 94 H From Monitor] Respiratory 18 19 20 Rate Respiratory Rate [Anterior Bilateral Throughout] Blood Pressure 170/91 171/89 169/97 O2 Sat by Pulse 96 97 98 Oximetry 09/25/20 13:37 Temperature Pulse Rate Pulse Rate [ 94 H Anterior Bilateral Throughout] Pulse Rate [ From Monitor] Respiratory Rate Respiratory 18 Rate [Anterior Bilateral Throughout] Blood Pressure O2 Sat by Pulse Oximetry - Labs CBC & Chem 7: 09/27/20 05:15 09/28/20 05:13 Labs: Abnormal lab results 09/24/20 09/24/20 09/24/20 Range/Units 11:30 17:11 23:07 WBC (4.5-11.0) K/mm3 RBC (3.65-5.03) M/mm3 MCH (28-32) pg RDW (13.2-15.2) % POC ABG pO2 (83-108) mmHg ABG Glucose (65-95) mg/dL POC Glucose 160 H 115 H 110 H (70-105) mg/dL Arterial Blood Glucose (65-95) mg/dL Arterial Blood Ionized Calcium (4.6-5.3) mg/dL 09/25/20 09/25/20 09/25/20 Range/Units 04:50 05:18 11:46 WBC (4.5-11.0) K/mm3 RBC (3.65-5.03) M/mm3 MCH (28-32) pg RDW (13.2-15.2) % POC ABG pO2 133.5 H (83-108) mmHg ABG Glucose 149 H (65-95) mg/dL POC Glucose 130 H 140 H (70-105) mg/dL Arterial Blood Glucose 149 H (65-95) mg/dL Arterial Blood Ionized Calcium 4.4 L (4.6-5.3) mg/dL 09/25/20 Range/Units 12:34 WBC 31.6 H (4.5-11.0) K/mm3 RBC 5.37 H (3.65-5.03) M/mm3 MCH 25 L (28-32) pg RDW 17.4 H (13.2-15.2) % POC ABG pO2 (83-108) mmHg ABG Glucose (65-95) mg/dL POC Glucose (70-105) mg/dL Arterial Blood Glucose (65-95) mg/dL Arterial Blood Ionized Calcium (4.6-5.3) mg/dL HEART Score - HEART Score Troponin: Troponin T < 0.010 ng/mL (0.00-0.029) 09/24/20 07:08
[2020-09-25] MEDS ORDERED: ENOXAPARIN 100 MG/1 ML INJ SUB-Q SCH (14:00)
[2020-09-25] MEDS ORDERED: DEXAMETHASONE 4 MG TAB PO SCH (14:22)
[2020-09-25] MEDS: INSULIN REGULAR, HUMAN 100 UNITS/1 ML SUB-Q SCH (14:23)
[2020-09-25 16:00] LABS: Blood Urea Nitrogen 17 mg/dL (7-17); Calcium 8.3 mg/dL (8.4-10.2); Hemolysis Index 5
[2020-09-25 16:01] LABS: BUN/Creatinine Ratio 24
[2020-09-25] MEDS: NORepinephrine/NS 4 MG-250 ML 4 MG/250 ML BAG IV SCH (17:15)
[2020-09-25] MEDS: D5W/0.9% NACL 1,000 ML IV SCH (17:57)
--- NOTE | 2020-09-25 21:51 | Event Note ---
[facility] intubation note I was asked by the director medical writing Dr. Mackay to reintubate the patient secondary to cuff failure. Intubation note Consent was unobtainable due to patient condition Preoxygenation with 100% oxygen Patient was sedated with etomidate 20 mg IV Patient was paralyzed with succinylcholine 100 mg IV A size 7.5 mm ET tube was inserted orally on second attempt There was symmetric chest rise and bilateral breath sounds post intubation A CO2 indicator was used for confirmation and resulted in positive CO2 return Pulse oximetry post intubation was 100% ET tube was taped at 21 cm at the lips The patient tolerated the procedure well There were no complications
[2020-09-25] MEDS: ENOXAPARIN 40 MG/0.4 ML INJ SUB-Q SCH (21:55)
[2020-09-25] MEDS: dexAMETHasone 4 MG/ML VIAL IV SCH (21:55)
[2020-09-25] MEDS ORDERED: ENOXAPARIN 40 MG/0.4 ML INJ SUB-Q SCH (22:00)
--- NOTE | 2020-09-25 22:11 | XRay Report ---
CHEST 1 VIEW INDICATION / CLINICAL INFORMATION: OET TUBE PLACEMENT. COMPARISON: 09/25/2020 at 0245 hours FINDINGS: SUPPORT DEVICES: Stable. NG tube has been placed. The tip is not included on this radiograph but is a t least within the proximal stomach. HEART / MEDIASTINUM: No significant abnormality. LUNGS / PLEURA: Mild bibasilar parenchymal disease has developed more than likely representing atelec tasis. The remainder of the lungs remain grossly clear. No pneumothorax. ADDITIONAL FINDINGS: No significant additional findings. IMPRESSION: 1. Mild bibasilar parenchymal disease most likely atelectasis. 2. Tip of NG tube is excluded from the radiograph but is at least within the proximal stomach. Signer Name: Ember Olivares MD Signed: 09/25/2020 10:06 PM Workstation Name: [id number]
--- NOTE | 2020-09-25 23:53 | XRay Report ---
CHEST 1 VIEW 09/25/2020 11:37 PM INDICATION / CLINICAL INFORMATION: ETT placement. COMPARISON: 9:48 PM FINDINGS: SUPPORT DEVICES: ET tube is present 3.4 cm above the billie. Right jugular central line and esophagog astric tube are unchanged. HEART / MEDIASTINUM: No significant abnormality. LUNGS / PLEURA: Stable bibasilar densities. No pneumothorax. ADDITIONAL FINDINGS: No significant additional findings. IMPRESSION: 1. Endotracheal tube in expected position. Signer Name: Mary Hernandez MD Signed: 09/25/2020 11:49 PM Workstation Name: [id number]
[2020-09-26] MEDS: INSULIN REGULAR, HUMAN 100 UNITS/1 ML SUB-Q SCH ×5 (00:04→18:13)
[2020-09-26] MEDS: IPRATROPIUM/ALBUTEROL SULFATE 3 ML AMPUL.NEB IH SCH ×4 (02:21→22:09)
[2020-09-26 06:10] LABS: Hematocrit 42.2 % (30.3-42.9); Hemoglobin 13.3 gm/dl (10.1-14.3); Mean Corpuscular HGB Conc 32 % (30-34); Mean Corpuscular Volume 81 fl (79-97); Platelet Count 144 K/mm3 (140-440); Red Blood Count 5.21 M/mm3 (3.65-5.03); Red Cell Distribution Width 17.9 % (13.2-15.2)
[2020-09-26 06:37] LABS: Blood Urea Nitrogen 19 mg/dL (7-17); Calcium 9.3 mg/dL (8.4-10.2); Hemolysis Index 5
[2020-09-26 06:39] LABS: Alanine Aminotransferase 88 units/L (7-56); Albumin 3.4 g/dL (3.9-5)
[2020-09-26 06:41] LABS: BUN/Creatinine Ratio 27; Bilirubin,Direct < 0.2 mg/dL (0-0.2)
[2020-09-26 07:04] LABS: Total Cells Counted 100
[2020-09-26 07:05] LABS: Hypochromasia 1+; Platelet Estimate Consistent w Auto
[2020-09-26] MEDS ORDERED: SODIUM BICARBONATE 325 MG TAB FEEDTUBE PRN (08:30)
[2020-09-26] MEDS ORDERED: LIPASE 10,500/PROTEASE 25,000/AMYLASE 43,750 (UNITS) DR CAP FEEDTUBE PRN (08:30)
[2020-09-26] MEDS ORDERED: SIMPLE SYRUP 15 ML FEEDTUBE PRN ×2 (08:30)
[2020-09-26] MEDS: D5W/0.9% NACL 1,000 ML IV SCH (08:59)
[2020-09-26] MEDS: CEFEPIME/NS 1 GM/100 ML 1 GM/100 ML BAG IV SCH ×2 (09:05→22:15)
[2020-09-26] MEDS: dexAMETHasone 4 MG/ML VIAL IV SCH (09:10)
[2020-09-26] MEDS: METOPROLOL TARTRATE 50 MG TAB PO SCH ×2 (09:11→22:12)
[2020-09-26] MEDS: FAMOTIDINE 20 MG TAB PO SCH ×2 (09:11→22:12)
[2020-09-26] MEDS: AZITHROMYCIN/NS 500 MG/250 ML 500 MG/250 ML BAG IV SCH (09:53)
--- NOTE | 2020-09-26 10:29 | Progress Note ---
Assessment and Plan Status post cardiac arrest, out of hospital with ROSC Acute hypoxic-hypercapnic respiratory failure Severe septic shock COVID-19 pneumonia-PUI Hypernatremia Diabetes mellitus type 2 COPD/Emphysema Hyperlipidemia Elevated LFT due to shock liver - advance ETT 2 cm - repeat CXR afterwards - reduce set rate to 12/min - follow EEG - continue care as below otherwise; - continue to wean vasopressor support for MAP >65 (on Levophed) - VAP bundle addressed, aspiration precautions HOB >40 degrees - Adjust minute ventilation for better gas-exchange - Monitor airway pressures, lung protective strategies, monitor P/F ratio - Wean supplemental oxygen for target O2 sats > 92% - Daily assessment for readiness to wean. - continue bronchodilators with pulmonary hygiene per RT - Start trophic enteric feeding via OGT, place facing slitter consult - Transthoracic echocardiogram to evaluate LVEF and for pulmonary HTN - Accuchecks with glycemic control per SSI (While critically ill target blood glucose of 140-180 mg/dL; avoid hypoglycemia) - Avoid nephrotoxins, renally dose all medications - Avoid benzodiazepines, reduce the possibility of delirium - COVID isolation protocols until COVID testing is resulted - prn analgesia per CPOT score - Maintenance of sleep-wake cycle, avoid delirium - VTE prophylaxis- Enoxaparin - Stress ulcer prophylaxis- Famotidine - ROM exercises - Mobility per facility protocol for pressure ulcer prevention - Monitor hemodynamics closely - Antibiotics per primary service, will consult ID - Get EEG in 48 hours - ABG in am, ABG and CXR as clinically indicated - continue other care per attending / other consultants CONDITION: CRITICAL PROGNOSIS: GUARDED CODE STATUS; FULL CODE Discussed with her daughter Torrey Pate, and she confirms that her mother is full aggressive care, full code in the event of cardiopulmonary arrest The high probability of a clinically significant, sudden or life threatening deterioration of the [[employer] IN[employer]KE WORKER, respiratory, CVS] system(s) required my full and direct attention, intervention and personal management. The aggregate critical care time was [33] minutes. This time is in addition to time spent performing reported procedures but includes the following: [x] Data Review and interpretation [x] Patient assessment and monitoring of vital signs [x] Documentation [x] Medication orders and management Subjective Date of service: 09/26/20 Principal diagnosis: Cardiac arrest; Ac hypoxemic resp failure; Septic shock; PUI COVID-19 Interval history: Patient is seen today for: OOH cardiac arrest with ROSC; Acute hypoxemic- hypercapnic respiratory failure; Septic shock; PUI COVID-19 pneumonia; DM II; COPD/Emphysema; Elevated LFT due to shock liver Seen and examined at bedside; 24hour events reviewed; nursing and respiratory care staff consulted; no adverse overnight events reported to me; resting in bed; resting peacefully in bed; AMS is persistent; No emesis or overt aspiration and no seizures; awaiting EEG Objective Vital Signs - 12hr 09/25/20 09/25/20 09/25/20 22:26 22:30 23:00 Temperature Pulse Rate 61 84 86 Pulse Rate [ Anterior Bilateral Throughout] Respiratory 16 16 Rate Respiratory Rate [Anterior Bilateral Throughout] Blood Pressure 131/80 142/85 O2 Sat by Pulse 94 94 Oximetry 09/25/20 09/25/20 09/26/20 23:30 23:54 00:00 Temperature 97.5 F L Pulse Rate 76 98 H 98 H Pulse Rate [ Anterior Bilateral Throughout] Respiratory 16 16 Rate Respiratory Rate [Anterior Bilateral Throughout] Blood Pressure 137/87 143/95 157/88 O2 Sat by Pulse 94 96 96 Oximetry 09/26/20 09/26/20 09/26/20 00:06 00:30 01:00 Temperature Pulse Rate 98 H 60 60 Pulse Rate [ Anterior Bilateral Throughout] Respiratory 16 16 16 Rate Respiratory Rate [Anterior Bilateral Throughout] Blood Pressure 157/88 147/94 69/39 O2 Sat by Pulse 96 94 Oximetry 09/26/20 09/26/20 09/26/20 01:30 02:00 02:21 Temperature Pulse Rate 62 61 Pulse Rate [ 63 Anterior Bilateral Throughout] Respiratory 16 16 Rate Respiratory 16 Rate [Anterior Bilateral Throughout] Blood Pressure 134/75 121/76 O2 Sat by Pulse 96 97 Oximetry 09/26/20 09/26/20 09/26/20 02:30 03:00 03:30 Temperature Pulse Rate 60 62 62 Pulse Rate [ Anterior Bilateral Throughout] Respiratory 16 16 16 Rate Respiratory Rate [Anterior Bilateral Throughout] Blood Pressure 115/73 118/73 113/67 O2 Sat by Pulse 98 96 95 Oximetry 09/26/20 09/26/20 09/26/20 03:50 04:00 04:30 Temperature 97.4 F L Pulse Rate 62 62 60 Pulse Rate [ Anterior Bilateral Throughout] Respiratory 16 16 Rate Respiratory Rate [Anterior Bilateral Throughout] Blood Pressure 115/71 105/66 107/69 O2 Sat by Pulse 96 97 95 Oximetry 09/26/20 09/26/20 09/26/20 05:00 05:30 06:00 Temperature Pulse Rate 59 L 58 L 58 L Pulse Rate [ Anterior Bilateral Throughout] Respiratory 16 16 16 Rate Respiratory Rate [Anterior Bilateral Throughout] Blood Pressure 109/70 115/68 121/75 O2 Sat by Pulse 96 97 96 Oximetry 09/26/20 09/26/20 09/26/20 06:30 08:00 09:11 Temperature Pulse Rate 57 L 53 L 57 L Pulse Rate [ Anterior Bilateral Throughout] Respiratory 16 Rate Respiratory Rate [Anterior Bilateral Throughout] Blood Pressure 116/69 146/81 72/34 O2 Sat by Pulse 97 98 Oximetry 09/26/20 09:49 Temperature Pulse Rate Pulse Rate [ 52 L Anterior Bilateral Throughout] Respiratory Rate Respiratory 18 Rate [Anterior Bilateral Throughout] Blood Pressure O2 Sat by Pulse Oximetry Constitutional: no acute distress, other (elderly female ridsing set rate on MVS without significant dys-synchrony) Eyes: non-icteric ENT: oropharynx moist, other (ETT 22 cm EMMA) Neck: supple, no lymphadenopathy, no JVD Effort: normal Ascultation: Bilateral: diminished breath sounds, rhonchi Percussion: Bilateral: not dull Cardiovascular: regular rate and rhythm Gastrointestinal: normoactive bowel sounds, soft, non-tender, non-distended Extremities: no cyanosis, no edema, pulses normal, no ischemia or petechiae Neurologic: pupils equal and round, unable to assess Psychiatric: other (unable to assess re: AMS) CBC and BMP: 09/26/20 05:30 09/26/20 08:55 ABG, PT/INR, D-dimer: ABG ABG pH 7.448 (7.320-7.450) 09/26/20 03:20 POC ABG pCO2 36.3 mmHg (32.0-48.0) 09/26/20 03:20 POC ABG pO2 70.9 mmHg (83-108) L 09/26/20 03:20 POC ABG HCO3 24.5 09/26/20 03:20 PT/INR, D-dimer PT 14.6 Sec. (12.2-14.9) 09/24/20 07:08 INR 1.15 (0.87-1.13) H 09/24/20 07:08 D-Dimer > 88321 ng/mlDDU (0-234) H 09/25/20 15:36 Abnormal lab findings: Abnormal Labs 09/24/20 09/24/20 09/24/20 06:40 07:08 07:08 WBC 26.2 H RBC 5.23 H Hct 44.6 H MCH 26 L RDW 18.2 H Lymph % (Auto) 42.7 H Lymph # (Auto) 11.2 H [place] # (Auto) 1.2 H Seg Neuts % (Manual) 36.0 L Lymphocytes % (Manual) 59.0 H Seg Neutrophils # 13.4 H Seg Neutrophils # Man 9.4 H Lymphocytes # (Manual) 15.5 H INR 1.15 H APTT 23.0 L D-Dimer ABG pH POC ABG pCO2 POC ABG pO2 ABG Hemoglobin ABG Oxyhemoglobin ABG Sodium ABG Potassium ABG Chloride ABG Glucose Sodium Chloride BUN Glucose POC Glucose 195 H Calcium Magnesium Ferritin AST ALT Alkaline Phosphatase Lactate Dehydrogenase Total Creatine Kinase CK-MB (CK-2) Total Protein Albumin Arterial Blood Glucose Arterial Blood Ionized Calcium Urine WBC (Auto) 09/24/20 09/24/20 09/24/20 07:08 07:08 07:15 WBC RBC Hct MCH RDW Lymph % (Auto) Lymph # (Auto) [place] # (Auto) Seg Neuts % (Manual) Lymphocytes % (Manual) Seg Neutrophils # Seg Neutrophils # Man Lymphocytes # (Manual) INR APTT D-Dimer ABG pH POC ABG pCO2 POC ABG pO2 ABG Hemoglobin ABG Oxyhemoglobin ABG Sodium ABG Potassium ABG Chloride ABG Glucose Sodium Chloride BUN Glucose 293 H POC Glucose Calcium Magnesium 2.90 H Ferritin 1063.0 H AST 178 H ALT 185 H Alkaline Phosphatase 144 H Lactate Dehydrogenase 667 H Total Creatine Kinase 273 H CK-MB (CK-2) 4.4 H Total Protein 6.0 L Albumin 3.7 L Arterial Blood Glucose Arterial Blood Ionized Calcium Urine WBC (Auto) 9.0 H 09/24/20 09/24/20 09/24/20 08:02 11:30 17:11 WBC RBC Hct MCH RDW Lymph % (Auto) Lymph # (Auto) [place] # (Auto) Seg Neuts % (Manual) Lymphocytes % (Manual) Seg Neutrophils # Seg Neutrophils # Man Lymphocytes # (Manual) INR APTT D-Dimer ABG pH 7.218 L POC ABG pCO2 25.8 L POC ABG pO2 203.9 H ABG Hemoglobin 8.7 L ABG Oxyhemoglobin ABG Sodium ABG Potassium 2.0 L ABG Chloride 122.0 H ABG Glucose 129 H Sodium Chloride BUN Glucose POC Glucose 160 H 115 H Calcium Magnesium Ferritin AST ALT Alkaline Phosphatase Lactate Dehydrogenase Total Creatine Kinase CK-MB (CK-2) Total Protein Albumin Arterial Blood Glucose 129 H Arterial Blood Ionized Calcium 3.2 L Urine WBC (Auto) 09/24/20 09/25/20 09/25/20 23:07 04:50 05:18 WBC RBC Hct MCH RDW Lymph % (Auto) Lymph # (Auto) [place] # (Auto) Seg Neuts % (Manual) Lymphocytes % (Manual) Seg Neutrophils # Seg Neutrophils # Man Lymphocytes # (Manual) INR APTT D-Dimer ABG pH POC ABG pCO2 POC ABG pO2 133.5 H ABG Hemoglobin ABG Oxyhemoglobin ABG Sodium ABG Potassium ABG Chloride ABG Glucose 149 H Sodium Chloride BUN Glucose POC Glucose 110 H 130 H Calcium Magnesium Ferritin AST ALT Alkaline Phosphatase Lactate Dehydrogenase Total Creatine Kinase CK-MB (CK-2) Total Protein Albumin Arterial Blood Glucose 149 H Arterial Blood Ionized Calcium 4.4 L Urine WBC (Auto) 09/25/20 09/25/20 09/25/20 11:46 12:34 15:36 WBC 31.6 H RBC 5.37 H Hct MCH 25 L RDW 17.4 H Lymph % (Auto) Lymph # (Auto) [place] # (Auto) Seg Neuts % (Manual) Lymphocytes % (Manual) Seg Neutrophils # Seg Neutrophils # Man Lymphocytes # (Manual) INR APTT D-Dimer ABG pH POC ABG pCO2 POC ABG pO2 ABG Hemoglobin ABG Oxyhemoglobin ABG Sodium ABG Potassium ABG Chloride ABG Glucose Sodium Chloride BUN Glucose 152 H POC Glucose 140 H Calcium 8.3 L Magnesium Ferritin AST ALT Alkaline Phosphatase Lactate Dehydrogenase Total Creatine Kinase CK-MB (CK-2) Total Protein Albumin Arterial Blood Glucose Arterial Blood Ionized Calcium Urine WBC (Auto) 09/25/20 09/25/20 09/25/20 15:36 17:20 23:36 WBC RBC Hct MCH RDW Lymph % (Auto) Lymph # (Auto) [place] # (Auto) Seg Neuts % (Manual) Lymphocytes % (Manual) Seg Neutrophils # Seg Neutrophils # Man Lymphocytes # (Manual) INR APTT D-Dimer > 29030 H ABG pH POC ABG pCO2 POC ABG pO2 ABG Hemoglobin ABG Oxyhemoglobin ABG Sodium ABG Potassium ABG Chloride ABG Glucose Sodium Chloride BUN Glucose POC Glucose 152 H 177 H Calcium Magnesium Ferritin AST ALT Alkaline Phosphatase Lactate Dehydrogenase Total Creatine Kinase CK-MB (CK-2) Total Protein Albumin Arterial Blood Glucose Arterial Blood Ionized Calcium Urine WBC (Auto) 09/26/20 09/26/20 09/26/20 03:20 05:22 05:30 WBC 24.9 H RBC 5.21 H Hct MCH 26 L RDW 17.9 H Lymph % (Auto) Lymph # (Auto) [place] # (Auto) Seg Neuts % (Manual) 95.0 H Lymphocytes % (Manual) 2.0 L Seg Neutrophils # Seg Neutrophils # Man 23.7 H Lymphocytes # (Manual) 0.5 L INR APTT D-Dimer ABG pH POC ABG pCO2 POC ABG pO2 70.9 L ABG Hemoglobin ABG Oxyhemoglobin 93.5 L ABG Sodium 156.0 H ABG Potassium ABG Chloride 121.0 H ABG Glucose 273 H Sodium Chloride BUN Glucose POC Glucose 222 H Calcium Magnesium Ferritin AST ALT Alkaline Phosphatase Lactate Dehydrogenase Total Creatine Kinase CK-MB (CK-2) Total Protein Albumin Arterial Blood Glucose 273 H Arterial Blood Ionized Calcium Urine WBC (Auto) 09/26/20 09/26/20 09/26/20 05:30 05:30 08:55 WBC RBC Hct MCH RDW Lymph % (Auto) Lymph # (Auto) [place] # (Auto) Seg Neuts % (Manual) Lymphocytes % (Manual) Seg Neutrophils # Seg Neutrophils # Man Lymphocytes # (Manual) INR APTT D-Dimer ABG pH POC ABG pCO2 POC ABG pO2 ABG Hemoglobin ABG Oxyhemoglobin ABG Sodium ABG Potassium ABG Chloride ABG Glucose Sodium 162 H* D 166 H* Chloride 127.9 H BUN 19 H Glucose 281 H POC Glucose Calcium Magnesium Ferritin AST 86 H ALT 88 H Alkaline Phosphatase Lactate Dehydrogenase Total Creatine Kinase CK-MB (CK-2) Total Protein 5.4 L Albumin 3.4 L Arterial Blood Glucose Arterial Blood Ionized Calcium Urine WBC (Auto) Chest x-ray: image reviewed (ETT appears a little high yesterday) Allied health notes reviewed: nursing
[2020-09-26] MEDS: DEXTROSE 5% IN WATER 1,000 ML IV SCH (12:42)
--- NOTE | 2020-09-26 13:13 | Vascular Lab Report ---
DUPLEX DOPPLER LOWER EXTREMITY VEINS, BILATERAL INDICATION / CLINICAL INFORMATION: Acute hypoxemic resp failure. Shortness of breath. TECHNIQUE: Duplex doppler imaging was performed through the veins of both lower extremities using venous clemencia axel and other maneuvers. COMPARISON: None available. FINDINGS: RIGHT COMMON FEMORAL VEIN: Negative. RIGHT FEMORAL VEIN: Negative. RIGHT POPLITEAL VEIN: Negative. RIGHT CALF VEINS: Negative. LEFT COMMON FEMORAL VEIN: Negative. LEFT FEMORAL VEIN: Negative. LEFT POPLITEAL VEIN: Negative. LEFT CALF VEINS: Negative. ADDITIONAL FINDINGS: There is no evidence of a popliteal cyst or other abnormality. IMPRESSION: No sonographic evidence for DVT in either lower extremity. Signer Name: Sameer Malone MD Signed: 09/26/2020 1:08 PM Workstation Name: [id number]
[2020-09-26] MEDS: methylPREDNISolone Sod Succinate 40 MG/1 ML INJ IV SCH ×2 (13:56→22:11)
[2020-09-26] MEDS: NORepinephrine/NS 4 MG-250 ML 4 MG/250 ML BAG IV SCH ×2 (15:58→20:39)
--- NOTE | 2020-09-26 16:23 | Progress Note ---
Assessment and Plan Acute metabolic encephalopathy/anoxic brain injury -CT head showed early sign of anoxic brain injury -We will follow clinically, repeat CT head in 72 hours -ordered for EEG and neuro eval pending Status post cardiac arrest -Per EMS patient was in asystole for about 15 minutes -ordered 2D echo, continue to monitor -Wean off pressors as tolerated Acute hypoxic respiratory failure - patient intubated -negative COVID-19 pneumonia, will continue to treat for aspiration pneumonia and COPD exacerbation -Placed on IV antibiotic, schedule nebulizer, ordered for COVID-19 test Severe septic shock -Placed on pressor support, cont to wean off as tolerated -negative Cx so far Right lower lobe pneumonia, likely due to aspiration -Continue antibiotic, ruled out COVID-19 COVID-19 PUI, ruled out Diabetes mellitus type 2 -On sliding scale of insulin Acute COPD exacerbation -Continue steroid and nebulizer breathing treatment Hyperlipidemia, hold statin for now due to elevated LFT Elevated LFT due to shock liver -Continue to monitor History of tobacco abuse, counseling will be done when patient is clinically stable hypernatremia, start on D5W, monitor BMP Full CODE STATUS Extremely poor prognosis The high probability of a clinically significant, sudden or life threatening deterioration of the [[employer], [employer], 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 The aggregate critical care time was [42] minutes. This time is in addition to time spent performing reported procedures but includes the following: [x] Data Review and interpretation [x] Patient assessment and monitoring of vital signs [x] Documentation [x] Medication orders and management Daily course: 09/25: Call patient and updated with the patient's clinical status. Answe red all his questions to best of my knowledge and to his satisfaction. Patient has been was informed about patient's CT head findings. Will await for EEG and neuro eval. Continue supportive care for now patient remains on mechanical ventilation. Weaned off from pressor. Will start on tube feeding. Continue to monitor serum chemistry and CBC. COVID-19 test pending. Continue empiric antibiotics. Will order D-dimer and if D-dimer elevated will do work-up for possible PE and DVT. Placed on prophylactic Lovenox dose for now. 09/26: Patient remains intubated, restarted on pressor support. Sodium level today 166, change IV fluid to D5W. Monitor BMP every 6 hours. Monitor H&H. Very poor prognosis. Discussed with Jewel MATUTE and also updated family by phone. Subjective Date of service: 09/26/20 Principal diagnosis: Cardiac arrest; Ac hypoxemic resp failure; Septic shock; PUI COVID-19 Interval history: Patient seen and examined in the ICU Patient remains on mechanical ventilation Patient remains off sedation comatose Discussed with RN at the bedside Objective - Exam Narrative Exam: Limited physical exam due to COVID-19 pandemic to minimize transmission of the disease and to preserve PPE. Vital reviewed and stable. GENERAL: well-developed well-nourished elderly female lying on bed who is currently intubated, comatose. HEENT: Normocephalic. Atraumatic. NECK: Supple. CHEST/LUNGS: Patient on mechanical ventilation HEART/CARDIOVASCULAR: Heart rate stable on telemetry ABDOMEN: Visibly not distended SKIN: There is no rash NEURO: Unresponsive, intubated MUSCULOSKELETAL: No joint effusion EXTRIMITY: No swelling, no cyanosis or clubbing. PSYCH: Unable to assess - Constitutional Vitals: Vital Signs - 12hr 09/26/20 09/26/20 09/26/20 04:30 05:00 05:30 Temperature Pulse Rate 60 59 L 58 L Pulse Rate [ Anterior Bilateral Throughout] Pulse Rate [ From Monitor] Respiratory 16 16 16 Rate Respiratory Rate [Anterior Bilateral Throughout] Blood Pressure 107/69 109/70 115/68 O2 Sat by Pulse 95 96 97 Oximetry 09/26/20 09/26/20 09/26/20 06:00 06:30 06:45 Temperature Pulse Rate 58 L 57 L 56 L Pulse Rate [ Anterior Bilateral Throughout] Pulse Rate [ From Monitor] Respiratory 16 16 16 Rate Respiratory Rate [Anterior Bilateral Throughout] Blood Pressure 121/75 116/69 115/71 O2 Sat by Pulse 96 97 97 Oximetry 09/26/20 09/26/20 09/26/20 07:00 07:15 07:30 Temperature Pulse Rate 56 L 56 L 56 L Pulse Rate [ Anterior Bilateral Throughout] Pulse Rate [ From Monitor] Respiratory 16 16 16 Rate Respiratory Rate [Anterior Bilateral Throughout] Blood Pressure 115/69 111/66 105/72 O2 Sat by Pulse 97 97 96 Oximetry 09/26/20 09/26/20 09/26/20 07:45 08:00 08:15 Temperature Pulse Rate 55 L 55 L 55 L Pulse Rate [ Anterior Bilateral Throughout] Pulse Rate [ 55 L From Monitor] Respiratory 16 16 16 Rate Respiratory Rate [Anterior Bilateral Throughout] Blood Pressure 103/68 110/65 107/66 O2 Sat by Pulse 96 97 97 Oximetry 09/26/20 09/26/20 09/26/20 08:30 08:45 09:00 Temperature Pulse Rate 54 L 54 L 54 L Pulse Rate [ Anterior Bilateral Throughout] Pulse Rate [ From Monitor] Respiratory 16 16 15 Rate Respiratory Rate [Anterior Bilateral Throughout] Blood Pressure 109/65 114/66 114/66 O2 Sat by Pulse 97 96 94 Oximetry 09/26/20 09/26/20 09/26/20 09:11 09:16 09:30 Temperature Pulse Rate 57 L 56 L 54 L Pulse Rate [ Anterior Bilateral Throughout] Pulse Rate [ From Monitor] Respiratory 16 16 Rate Respiratory Rate [Anterior Bilateral Throughout] Blood Pressure 72/34 99/72 146/81 O2 Sat by Pulse 95 96 Oximetry 09/26/20 09/26/20 09/26/20 09:46 09:49 10:00 Temperature Pulse Rate 53 L 53 L Pulse Rate [ 52 L Anterior Bilateral Throughout] Pulse Rate [ From Monitor] Respiratory 16 16 Rate Respiratory 18 Rate [Anterior Bilateral Throughout] Blood Pressure 109/64 100/61 O2 Sat by Pulse 97 93 Oximetry 09/26/20 09/26/20 09/26/20 10:15 10:30 10:45 Temperature Pulse Rate 57 L 58 L 59 L Pulse Rate [ Anterior Bilateral Throughout] Pulse Rate [ From Monitor] Respiratory 16 16 16 Rate Respiratory Rate [Anterior Bilateral Throughout] Blood Pressure 95/55 99/65 111/72 O2 Sat by Pulse 95 96 95 Oximetry 09/26/20 09/26/20 09/26/20 11:00 11:15 11:30 Temperature Pulse Rate 58 L 58 L 58 L Pulse Rate [ Anterior Bilateral Throughout] Pulse Rate [ From Monitor] Respiratory 12 12 12 Rate Respiratory Rate [Anterior Bilateral Throughout] Blood Pressure 119/77 113/75 122/78 O2 Sat by Pulse 95 96 95 Oximetry 09/26/20 09/26/20 09/26/20 11:45 12:00 12:05 Temperature 97 F L Pulse Rate 57 L 58 L 58 L Pulse Rate [ Anterior Bilateral Throughout] Pulse Rate [ 61 From Monitor] Respiratory 12 12 Rate Respiratory Rate [Anterior Bilateral Throughout] Blood Pressure 107/70 101/65 122/78 O2 Sat by Pulse 96 97 96 Oximetry 09/26/20 09/26/20 09/26/20 12:15 12:30 12:45 Temperature Pulse Rate 58 L 59 L 59 L Pulse Rate [ Anterior Bilateral Throughout] Pulse Rate [ From Monitor] Respiratory 12 12 12 Rate Respiratory Rate [Anterior Bilateral Throughout] Blood Pressure 97/52 88/54 95/52 O2 Sat by Pulse 96 96 97 Oximetry 09/26/20 09/26/20 09/26/20 13:00 13:15 13:30 Temperature Pulse Rate 59 L 59 L 60 Pulse Rate [ Anterior Bilateral Throughout] Pulse Rate [ From Monitor] Respiratory 12 12 12 Rate Respiratory Rate [Anterior Bilateral Throughout] Blood Pressure 91/54 97/54 91/51 O2 Sat by Pulse 95 97 97 Oximetry 09/26/20 09/26/20 09/26/20 13:37 13:45 15:28 Temperature Pulse Rate 62 Pulse Rate [ 61 Anterior Bilateral Throughout] Pulse Rate [ 63 From Monitor] Respiratory 12 12 Rate Respiratory 12 Rate [Anterior Bilateral Throughout] Blood Pressure 81/47 O2 Sat by Pulse 97 97 Oximetry 09/26/20 09/26/20 15:47 16:00 Temperature 98.3 F Pulse Rate 62 Pulse Rate [ Anterior Bilateral Throughout] Pulse Rate [ From Monitor] Respiratory Rate Respiratory Rate [Anterior Bilateral Throughout] Blood Pressure 96/53 O2 Sat by Pulse 97 Oximetry - Labs CBC & Chem 7: 09/27/20 05:15 09/28/20 05:13 Labs: Abnormal lab results 09/25/20 09/25/20 09/25/20 Range/Units 15:36 17:20 23:36 WBC (4.5-11.0) K/mm3 RBC (3.65-5.03) M/mm3 MCH (28-32) pg RDW (13.2-15.2) % Seg Neuts % (Manual) (40.0-70.0) % Lymphocytes % (Manual) (13.4-35.0) % Seg Neutrophils # Man (1.8-7.7) K/mm3 Lymphocytes # (Manual) (1.2-5.4) K/mm3 D-Dimer > 62072 H (0-234) ng/mlDDU POC ABG pO2 (83-108) mmHg ABG Oxyhemoglobin (94-98) ABG Sodium (136.0-145.0) mmol/L ABG Chloride (98-107) mmol/L ABG Glucose (65-95) mg/dL Sodium (137-145) mmol/L Chloride (98-107) mmol/L BUN (7-17) mg/dL Glucose (65-100) mg/dL POC Glucose 152 H 177 H (70-105) mg/dL AST (5-40) units/L ALT (7-56) units/L Total Protein (6.3-8.2) g/dL Albumin (3.9-5) g/dL Arterial Blood Glucose (65-95) mg/dL 09/26/20 09/26/20 09/26/20 Range/Units 03:20 05:22 05:30 WBC 24.9 H (4.5-11.0) K/mm3 RBC 5.21 H (3.65-5.03) M/mm3 MCH 26 L (28-32) pg RDW 17.9 H (13.2-15.2) % Seg Neuts % (Manual) 95.0 H (40.0-70.0) % Lymphocytes % (Manual) 2.0 L (13.4-35.0) % Seg Neutrophils # Man 23.7 H (1.8-7.7) K/mm3 Lymphocytes # (Manual) 0.5 L (1.2-5.4) K/mm3 D-Dimer (0-234) ng/mlDDU POC ABG pO2 70.9 L (83-108) mmHg ABG Oxyhemoglobin 93.5 L (94-98) ABG Sodium 156.0 H (136.0-145.0) mmol/L ABG Chloride 121.0 H (98-107) mmol/L ABG Glucose 273 H (65-95) mg/dL Sodium (137-145) mmol/L Chloride (98-107) mmol/L BUN (7-17) mg/dL Glucose (65-100) mg/dL POC Glucose 222 H (70-105) mg/dL AST (5-40) units/L ALT (7-56) units/L Total Protein (6.3-8.2) g/dL Albumin (3.9-5) g/dL Arterial Blood Glucose 273 H (65-95) mg/dL 09/26/20 09/26/20 09/26/20 Range/Units 05:30 05:30 08:55 WBC (4.5-11.0) K/mm3 RBC (3.65-5.03) M/mm3 MCH (28-32) pg RDW (13.2-15.2) % Seg Neuts % (Manual) (40.0-70.0) % Lymphocytes % (Manual) (13.4-35.0) % Seg Neutrophils # Man (1.8-7.7) K/mm3 Lymphocytes # (Manual) (1.2-5.4) K/mm3 D-Dimer (0-234) ng/mlDDU POC ABG pO2 (83-108) mmHg ABG Oxyhemoglobin (94-98) ABG Sodium (136.0-145.0) mmol/L ABG Chloride (98-107) mmol/L ABG Glucose (65-95) mg/dL Sodium 162 H* D 166 H* (137-145) mmol/L Chloride 127.9 H (98-107) mmol/L BUN 19 H (7-17) mg/dL Glucose 281 H (65-100) mg/dL POC Glucose (70-105) mg/dL AST 86 H (5-40) units/L ALT 88 H (7-56) units/L Total Protein 5.4 L (6.3-8.2) g/dL Albumin 3.4 L (3.9-5) g/dL Arterial Blood Glucose (65-95) mg/dL 09/26/20 Range/Units 11:20 WBC (4.5-11.0) K/mm3 RBC (3.65-5.03) M/mm3 MCH (28-32) pg RDW (13.2-15.2) % Seg Neuts % (Manual) (40.0-70.0) % Lymphocytes % (Manual) (13.4-35.0) % Seg Neutrophils # Man (1.8-7.7) K/mm3 Lymphocytes # (Manual) (1.2-5.4) K/mm3 D-Dimer (0-234) ng/mlDDU POC ABG pO2 (83-108) mmHg ABG Oxyhemoglobin (94-98) ABG Sodium (136.0-145.0) mmol/L ABG Chloride (98-107) mmol/L ABG Glucose (65-95) mg/dL Sodium (137-145) mmol/L Chloride (98-107) mmol/L BUN (7-17) mg/dL Glucose (65-100) mg/dL POC Glucose 187 H (70-105) mg/dL AST (5-40) units/L ALT (7-56) units/L Total Protein (6.3-8.2) g/dL Albumin (3.9-5) g/dL Arterial Blood Glucose (65-95) mg/dL HEART Score - HEART Score Troponin: Troponin T < 0.010 ng/mL (0.00-0.029) 09/24/20 07:08
[2020-09-26 19:53] LABS: BUN/Creatinine Ratio 23; Blood Urea Nitrogen 18 mg/dL (7-17); Calcium 9.5 mg/dL (8.4-10.2); Hemolysis Index 24
[2020-09-26] MEDS: ENOXAPARIN 40 MG/0.4 ML INJ SUB-Q SCH (22:11)
[2020-09-27] MEDS: INSULIN REGULAR, HUMAN 100 UNITS/1 ML SUB-Q SCH ×4 (00:21→18:25)
[2020-09-27 01:17] LABS: BUN/Creatinine Ratio 22; Blood Urea Nitrogen 20 mg/dL (7-17); Calcium 9.6 mg/dL (8.4-10.2); Hemolysis Index 12
[2020-09-27] MEDS: IPRATROPIUM/ALBUTEROL SULFATE 3 ML AMPUL.NEB IH SCH ×4 (03:21→19:43)
--- NOTE | 2020-09-27 03:48 | XRay Report ---
CHEST 1 VIEW 09/27/2020 2:06 AM INDICATION / CLINICAL INFORMATION: follow up respiratory failure. COMPARISON: 09/25/20 FINDINGS: SUPPORT DEVICES: Unchanged. HEART / MEDIASTINUM: Stable. LUNGS / PLEURA: Bibasilar densities have improved. No pneumothorax. ADDITIONAL FINDINGS: No significant additional findings. IMPRESSION: 1. Interval improvement. Signer Name: Mary Hernandez MD Signed: 09/27/2020 3:43 AM Workstation Name: [id number]
[2020-09-27 05:59] LABS: Mean Corpuscular HGB Conc 31 % (30-34); Mean Corpuscular Volume 83 fl (79-97); Platelet Count 151 K/mm3 (140-440); Red Blood Count 5.14 M/mm3 (3.65-5.03); Red Cell Distribution Width 18.5 % (13.2-15.2)
[2020-09-27] MEDS: methylPREDNISolone Sod Succinate 40 MG/1 ML INJ IV SCH ×3 (06:03→21:39)
[2020-09-27 06:05] LABS: Hematocrit 42.6 % (30.3-42.9); Hemoglobin 13.1 gm/dl (10.1-14.3)
[2020-09-27 06:16] LABS: BUN/Creatinine Ratio 19; Blood Urea Nitrogen 19 mg/dL (7-17); Calcium 9.5 mg/dL (8.4-10.2); Hemolysis Index 5
--- NOTE | 2020-09-27 07:58 | Progress Note ---
Assessment and Plan Status post cardiac arrest, out of hospital with ROSC Acute hypoxic-hypercapnic respiratory failure Severe septic shock COVID-19 pneumonia-PUI Hypernatremia Diabetes mellitus type 2 COPD/Emphysema Hyperlipidemia Elevated LFT due to shock liver - change IVF to 09/09 NS @ 100 mls/hr X 2 liters re: hypernatremia but add free w ater 300 mls po q4h - repeat BMP in am - keep set rate to 12/min - begin daily SAT's & SBT's as tolerated - continue care as below otherwise; - continue to wean vasopressor support for MAP >65 (on Levophed @ 8 mics) - VAP bundle addressed, aspiration precautions HOB >40 degrees - Adjust minute ventilation for better gas-exchange - Monitor airway pressures, lung protective strategies, monitor P/F ratio - Wean supplemental oxygen for target O2 sats > 92% - Daily assessment for readiness to wean. - continue bronchodilators with pulmonary hygiene per RT - Start trophic enteric feeding via OGT, place continuous improvement engineer consult - Transthoracic echocardiogram to evaluate LVEF and for pulmonary HTN - Accuchecks with glycemic control per SSI (While critically ill target blood glucose of 140-180 mg/dL; avoid hypoglycemia) - Avoid nephrotoxins, renally dose all medications - Avoid benzodiazepines, reduce the possibility of delirium - COVID isolation protocols until COVID testing is resulted - prn analgesia per CPOT score - Maintenance of sleep-wake cycle, avoid delirium - VTE prophylaxis- Enoxaparin - Stress ulcer prophylaxis- Famotidine - ROM exercises - Mobility per facility protocol for pressure ulcer prevention - Monitor hemodynamics closely - Antibiotics per primary service, will consult ID - Get EEG in 48 hours - ABG in am, ABG and CXR as clinically indicated - continue other care per attending / other consultants CONDITION: CRITICAL PROGNOSIS: GUARDED CODE STATUS; FULL CODE Discussed with her daughter Torrey Pate, and she confirms that her mother is full aggressive care, full code in the event of cardiopulmonary arrest The high probability of a clinically significant, sudden or life threatening deterioration of the [[employer], respiratory, CVS] system(s) required my full and dir ect attention, intervention and personal management. The aggregate critical care time was [36] minutes. This time is in addition to time spent performing reported procedures but includes the following: [x] Data Review and interpretation [x] Patient assessment and monitoring of vital signs [x] Documentation [x] Medication orders and management Subjective Date of service: 09/27/20 Principal diagnosis: Cardiac arrest; Ac hypoxemic resp failure; Septic shock; PUI COVID-19 Interval history: Patient is seen today for: OOH cardiac arrest with ROSC; Acute hypoxemic-hypercapnic respiratory failure; Septic shock; PUI COVID-19 pneumonia; DM II; COPD/Emphysema; Elevated LFT due to shock liver Seen and examined at bedside; 24hour events reviewed; nursing and respiratory care staff consulted; no adverse overnight events reported to me; resting peace fully in bed; remains on MVS; hypothermic; no emsis or overt aspiration; no seizures; serum Na+ up to 170's Objective Vital Signs - 12hr 09/26/20 09/26/20 09/26/20 20:00 20:15 20:30 Temperature 97.9 F Pulse Rate 66 66 66 Pulse Rate [ Anterior Bilateral Throughout] Respiratory 12 12 12 Rate Respiratory Rate [Anterior Bilateral Throughout] Blood Pressure 91/55 98/52 88/54 O2 Sat by Pulse 94 95 94 Oximetry 09/26/20 09/26/20 09/26/20 20:46 21:00 21:15 Temperature Pulse Rate 70 69 70 Pulse Rate [ Anterior Bilateral Throughout] Respiratory 12 12 12 Rate Respiratory Rate [Anterior Bilateral Throughout] Blood Pressure 128/68 112/58 110/59 O2 Sat by Pulse 94 94 93 Oximetry 09/26/20 09/26/20 09/26/20 21:30 21:45 21:57 Temperature Pulse Rate 69 69 69 Pulse Rate [ Anterior Bilateral Throughout] Respiratory 12 12 Rate Respiratory Rate [Anterior Bilateral Throughout] Blood Pressure 93/55 96/54 97/55 O2 Sat by Pulse 94 94 95 Oximetry 09/26/20 09/26/20 09/26/20 22:00 22:07 22:12 Temperature Pulse Rate 69 70 Pulse Rate [ 68 Anterior Bilateral Throughout] Respiratory 12 Rate Respiratory 12 Rate [Anterior Bilateral Throughout] Blood Pressure 97/55 97/55 O2 Sat by Pulse 94 Oximetry 09/26/20 09/26/20 09/26/20 22:15 22:30 22:45 Temperature Pulse Rate 71 73 74 Pulse Rate [ Anterior Bilateral Throughout] Respiratory 12 12 12 Rate Respiratory Rate [Anterior Bilateral Throughout] Blood Pressure 88/56 100/55 101/52 O2 Sat by Pulse 93 93 93 Oximetry 09/26/20 09/26/20 09/26/20 23:00 23:15 23:30 Temperature Pulse Rate 74 74 74 Pulse Rate [ Anterior Bilateral Throughout] Respiratory 12 12 12 Rate Respiratory Rate [Anterior Bilateral Throughout] Blood Pressure 91/52 93/51 95/57 O2 Sat by Pulse 92 93 94 Oximetry 09/26/20 09/27/20 09/27/20 23:45 00:00 00:15 Temperature 98.3 F Pulse Rate 73 73 73 Pulse Rate [ Anterior Bilateral Throughout] Respiratory 12 12 13 Rate Respiratory Rate [Anterior Bilateral Throughout] Blood Pressure 100/52 89/53 95/54 O2 Sat by Pulse 95 94 95 Oximetry 09/27/20 09/27/20 09/27/20 00:30 00:45 01:00 Temperature Pulse Rate 72 72 72 Pulse Rate [ Anterior Bilateral Throughout] Respiratory 12 12 12 Rate Respiratory Rate [Anterior Bilateral Throughout] Blood Pressure 93/52 102/57 101/54 O2 Sat by Pulse 95 95 95 Oximetry 09/27/20 09/27/20 09/27/20 01:15 01:30 01:45 Temperature Pulse Rate 71 71 71 Pulse Rate [ Anterior Bilateral Throughout] Respiratory 12 12 12 Rate Respiratory Rate [Anterior Bilateral Throughout] Blood Pressure 101/51 88/54 102/59 O2 Sat by Pulse 95 94 Oximetry 09/27/20 09/27/20 09/27/20 02:00 02:05 02:15 Temperature Pulse Rate 71 70 70 Pulse Rate [ Anterior Bilateral Throughout] Respiratory 12 12 Rate Respiratory Rate [Anterior Bilateral Throughout] Blood Pressure 102/58 102/58 94/55 O2 Sat by Pulse 94 94 94 Oximetry 09/27/20 09/27/20 09/27/20 02:30 02:45 03:00 Temperature Pulse Rate 70 71 72 Pulse Rate [ Anterior Bilateral Throughout] Respiratory 12 12 12 Rate Respiratory Rate [Anterior Bilateral Throughout] Blood Pressure 102/52 90/54 105/60 O2 Sat by Pulse 95 93 Oximetry 09/27/20 09/27/20 09/27/20 03:15 03:19 03:30 Temperature Pulse Rate 72 73 Pulse Rate [ 71 Anterior Bilateral Throughout] Respiratory 12 12 Rate Respiratory 12 Rate [Anterior Bilateral Throughout] Blood Pressure 103/58 82/47 O2 Sat by Pulse 93 96 Oximetry 09/27/20 09/27/20 09/27/20 03:45 04:00 04:04 Temperature 97.6 F Pulse Rate 75 75 76 Pulse Rate [ Anterior Bilateral Throughout] Respiratory 12 12 Rate Respiratory Rate [Anterior Bilateral Throughout] Blood Pressure 100/56 98/56 98/56 O2 Sat by Pulse 95 94 Oximetry 09/27/20 09/27/20 09/27/20 04:16 04:30 04:45 Temperature Pulse Rate 76 76 75 Pulse Rate [ Anterior Bilateral Throughout] Respiratory 12 12 12 Rate Respiratory Rate [Anterior Bilateral Throughout] Blood Pressure 106/59 105/56 103/50 O2 Sat by Pulse 93 94 95 Oximetry 09/27/20 09/27/20 09/27/20 05:00 05:15 05:30 Temperature Pulse Rate 75 74 73 Pulse Rate [ Anterior Bilateral Throughout] Respiratory 12 12 12 Rate Respiratory Rate [Anterior Bilateral Throughout] Blood Pressure 95/48 91/52 90/52 O2 Sat by Pulse 95 95 91 Oximetry 09/27/20 09/27/20 09/27/20 05:45 06:00 06:15 Temperature Pulse Rate 72 71 72 Pulse Rate [ Anterior Bilateral Throughout] Respiratory 12 12 12 Rate Respiratory Rate [Anterior Bilateral Throughout] Blood Pressure 80/48 92/44 96/47 O2 Sat by Pulse 92 93 93 Oximetry 09/27/20 07:39 Temperature Pulse Rate Pulse Rate [ 76 Anterior Bilateral Throughout] Respiratory Rate Respiratory 12 Rate [Anterior Bilateral Throughout] Blood Pressure O2 Sat by Pulse Oximetry Constitutional: no acute distress, other (elderly female riding set rate on MVS without significant dys-synchrony) Eyes: non-icteric ENT: oropharynx moist, other (ETT 22 cm EMMA) Neck: supple, no lymphadenopathy, no JVD Effort: normal Ascultation: Bilateral: diminished breath sounds, rhonchi Percussion: Bilateral: not dull Cardiovascular: regular rate and rhythm Gastrointestinal: normoactive bowel sounds, soft, non-tender, non-distended Extremities: no cyanosis, no edema, pulses normal, no ischemia or petechiae Neurologic: pupils equal and round, unable to assess Psychiatric: other (unable to assess re: AMS) CBC and BMP: 09/27/20 05:15 09/27/20 05:15 ABG, PT/INR, D-dimer: ABG ABG pH 7.380 (7.320-7.450) 09/27/20 02:29 POC ABG pCO2 50.1 mmHg (32.0-48.0) H 09/27/20 02:29 POC ABG pO2 73.0 mmHg (83-108) L 09/27/20 02:29 POC ABG HCO3 29 09/27/20 02:29 PT/INR, D-dimer PT 14.6 Sec. (12.2-14.9) 09/24/20 07:08 INR 1.15 (0.87-1.13) H 09/24/20 07:08 D-Dimer > 90564 ng/mlDDU (0-234) H 09/25/20 15:36 Abnormal lab findings: Abnormal Labs 09/24/20 09/24/20 09/24/20 06:40 07:08 07:08 WBC 26.2 H RBC 5.23 H Hct 44.6 H MCH 26 L RDW 18.2 H Lymph % (Auto) 42.7 H Lymph # (Auto) 11.2 H Treasure # (Auto) 1.2 H Seg Neuts % (Manual) 36.0 L Lymphocytes % (Manual) 59.0 H Seg Neutrophils # 13.4 H Seg Neutrophils # Man 9.4 H Lymphocytes # (Manual) 15.5 H INR 1.15 H APTT 23.0 L D-Dimer ABG pH POC ABG pCO2 POC ABG pO2 ABG Hemoglobin ABG Oxyhemoglobin ABG Sodium ABG Potassium ABG Chloride ABG Glucose Sodium Potassium Chloride Carbon Dioxide BUN Glucose POC Glucose 195 H Calcium Magnesium Ferritin AST ALT Alkaline Phosphatase Lactate Dehydrogenase Total Creatine Kinase CK-MB (CK-2) Total Protein Albumin Arterial Blood Glucose Arterial Blood Ionized Calcium Urine WBC (Auto) 09/24/20 09/24/20 09/24/20 07:08 07:08 07:15 WBC RBC Hct MCH RDW Lymph % (Auto) Lymph # (Auto) Treasure # (Auto) Seg Neuts % (Manual) Lymphocytes % (Manual) Seg Neutrophils # Seg Neutrophils # Man Lymphocytes # (Manual) INR APTT D-Dimer ABG pH POC ABG pCO2 POC ABG pO2 ABG Hemoglobin ABG Oxyhemoglobin ABG Sodium ABG Potassium ABG Chloride ABG Glucose Sodium Potassium Chloride Carbon Dioxide BUN Glucose 293 H POC Glucose Calcium Magnesium 2.90 H Ferritin 1063.0 H AST 178 H ALT 185 H Alkaline Phosphatase 144 H Lactate Dehydrogenase 667 H Total Creatine Kinase 273 H CK-MB (CK-2) 4.4 H Total Protein 6.0 L Albumin 3.7 L Arterial Blood Glucose Arterial Blood Ionized Calcium Urine WBC (Auto) 9.0 H 09/24/20 09/24/20 09/24/20 08:02 11:30 17:11 WBC RBC Hct MCH RDW Lymph % (Auto) Lymph # (Auto) Treasure # (Auto) Seg Neuts % (Manual) Lymphocytes % (Manual) Seg Neutrophils # Seg Neutrophils # Man Lymphocytes # (Manual) INR APTT D-Dimer ABG pH 7.218 L POC ABG pCO2 25.8 L POC ABG pO2 203.9 H ABG Hemoglobin 8.7 L ABG Oxyhemoglobin ABG Sodium ABG Potassium 2.0 L ABG Chloride 122.0 H ABG Glucose 129 H Sodium Potassium Chloride Carbon Dioxide BUN Glucose POC Glucose 160 H 115 H Calcium Magnesium Ferritin AST ALT Alkaline Phosphatase Lactate Dehydrogenase Total Creatine Kinase CK-MB (CK-2) Total Protein Albumin Arterial Blood Glucose 129 H Arterial Blood Ionized Calcium 3.2 L Urine WBC (Auto) 09/24/20 09/25/20 09/25/20 23:07 04:50 05:18 WBC RBC Hct MCH RDW Lymph % (Auto) Lymph # (Auto) Treasure # (Auto) Seg Neuts % (Manual) Lymphocytes % (Manual) Seg Neutrophils # Seg Neutrophils # Man Lymphocytes # (Manual) INR APTT D-Dimer ABG pH POC ABG pCO2 POC ABG pO2 133.5 H ABG Hemoglobin ABG Oxyhemoglobin ABG Sodium ABG Potassium ABG Chloride ABG Glucose 149 H Sodium Potassium Chloride Carbon Dioxide BUN Glucose POC Glucose 110 H 130 H Calcium Magnesium Ferritin AST ALT Alkaline Phosphatase Lactate Dehydrogenase Total Creatine Kinase CK-MB (CK-2) Total Protein Albumin Arterial Blood Glucose 149 H Arterial Blood Ionized Calcium 4.4 L Urine WBC (Auto) 09/25/20 09/25/20 09/25/20 11:46 12:34 15:36 WBC 31.6 H RBC 5.37 H Hct MCH 25 L RDW 17.4 H Lymph % (Auto) Lymph # (Auto) Treasure # (Auto) Seg Neuts % (Manual) Lymphocytes % (Manual) Seg Neutrophils # Seg Neutrophils # Man Lymphocytes # (Manual) INR APTT D-Dimer ABG pH POC ABG pCO2 POC ABG pO2 ABG Hemoglobin ABG Oxyhemoglobin ABG Sodium ABG Potassium ABG Chloride ABG Glucose Sodium Potassium Chloride Carbon Dioxide BUN Glucose 152 H POC Glucose 140 H Calcium 8.3 L Magnesium Ferritin AST ALT Alkaline Phosphatase Lactate Dehydrogenase Total Creatine Kinase CK-MB (CK-2) Total Protein Albumin Arterial Blood Glucose Arterial Blood Ionized Calcium Urine WBC (Auto) 09/25/20 09/25/20 09/25/20 15:36 17:20 23:36 WBC RBC Hct MCH RDW Lymph % (Auto) Lymph # (Auto) Treasure # (Auto) Seg Neuts % (Manual) Lymphocytes % (Manual) Seg Neutrophils # Seg Neutrophils # Man Lymphocytes # (Manual) INR APTT D-Dimer > 39779 H ABG pH POC ABG pCO2 POC ABG pO2 ABG Hemoglobin ABG Oxyhemoglobin ABG Sodium ABG Potassium ABG Chloride ABG Glucose Sodium Potassium Chloride Carbon Dioxide BUN Glucose POC Glucose 152 H 177 H Calcium Magnesium Ferritin AST ALT Alkaline Phosphatase Lactate Dehydrogenase Total Creatine Kinase CK-MB (CK-2) Total Protein Albumin Arterial Blood Glucose Arterial Blood Ionized Calcium Urine WBC (Auto) 09/26/20 09/26/20 09/26/20 03:20 05:22 05:30 WBC 24.9 H RBC 5.21 H Hct MCH 26 L RDW 17.9 H Lymph % (Auto) Lymph # (Auto) [place] # (Auto) Seg Neuts % (Manual) 95.0 H Lymphocytes % (Manual) 2.0 L Seg Neutrophils # Seg Neutrophils # Man 23.7 H Lymphocytes # (Manual) 0.5 L INR APTT D-Dimer ABG pH POC ABG pCO2 POC ABG pO2 70.9 L ABG Hemoglobin ABG Oxyhemoglobin 93.5 L ABG Sodium 156.0 H ABG Potassium ABG Chloride 121.0 H ABG Glucose 273 H Sodium Potassium Chloride Carbon Dioxide BUN Glucose POC Glucose 222 H Calcium Magnesium Ferritin AST ALT Alkaline Phosphatase Lactate Dehydrogenase Total Creatine Kinase CK-MB (CK-2) Total Protein Albumin Arterial Blood Glucose 273 H Arterial Blood Ionized Calcium Urine WBC (Auto) 09/26/20 09/26/20 09/26/20 05:30 05:30 08:55 WBC RBC Hct MCH RDW Lymph % (Auto) Lymph # (Auto) [place] # (Auto) Seg Neuts % (Manual) Lymphocytes % (Manual) Seg Neutrophils # Seg Neutrophils # Man Lymphocytes # (Manual) INR APTT D-Dimer ABG pH POC ABG pCO2 POC ABG pO2 ABG Hemoglobin ABG Oxyhemoglobin ABG Sodium ABG Potassium ABG Chloride ABG Glucose Sodium 162 H* D 166 H* Potassium Chloride 127.9 H Carbon Dioxide BUN 19 H Glucose 281 H POC Glucose Calcium Magnesium Ferritin AST 86 H ALT 88 H Alkaline Phosphatase Lactate Dehydrogenase Total Creatine Kinase CK-MB (CK-2) Total Protein 5.4 L Albumin 3.4 L Arterial Blood Glucose Arterial Blood Ionized Calcium Urine WBC (Auto) 09/26/20 09/26/20 09/26/20 11:20 17:45 18:44 WBC RBC Hct MCH RDW Lymph % (Auto) Lymph # (Auto) [place] # (Auto) Seg Neuts % (Manual) Lymphocytes % (Manual) Seg Neutrophils # Seg Neutrophils # Man Lymphocytes # (Manual) INR APTT D-Dimer ABG pH POC ABG pCO2 POC ABG pO2 ABG Hemoglobin ABG Oxyhemoglobin ABG Sodium ABG Potassium ABG Chloride ABG Glucose Sodium 179 H* D Potassium Chloride 139 H Carbon Dioxide BUN 18 H Glucose 200 H POC Glucose 187 H 167 H Calcium Magnesium Ferritin AST ALT Alkaline Phosphatase Lactate Dehydrogenase Total Creatine Kinase CK-MB (CK-2) Total Protein Albumin Arterial Blood Glucose Arterial Blood Ionized Calcium Urine WBC (Auto) 09/26/20 09/27/20 09/27/20 23:17 00:22 02:29 WBC RBC Hct MCH RDW Lymph % (Auto) Lymph # (Auto) [place] # (Auto) Seg Neuts % (Manual) Lymphocytes % (Manual) Seg Neutrophils # Seg Neutrophils # Man Lymphocytes # (Manual) INR APTT D-Dimer ABG pH POC ABG pCO2 50.1 H POC ABG pO2 73.0 L ABG Hemoglobin ABG Oxyhemoglobin ABG Sodium 182.7 H ABG Potassium ABG Chloride > 120.0 H ABG Glucose 205 H Sodium > 179 H* Potassium Chloride > 139 H Carbon Dioxide BUN 20 H Glucose 189 H POC Glucose 156 H Calcium Magnesium Ferritin AST ALT Alkaline Phosphatase Lactate Dehydrogenase Total Creatine Kinase CK-MB (CK-2) Total Protein Albumin Arterial Blood Glucose 205 H Arterial Blood Ionized Calcium 5.7 H Urine WBC (Auto) 09/27/20 09/27/20 09/27/20 05:13 05:15 05:15 WBC 28.6 H RBC 5.14 H Hct MCH 26 L RDW 18.5 H Lymph % (Auto) Lymph # (Auto) [place] # (Auto) Seg Neuts % (Manual) Lymphocytes % (Manual) Seg Neutrophils # Seg Neutrophils # Man Lymphocytes # (Manual) INR APTT D-Dimer ABG pH POC ABG pCO2 POC ABG pO2 ABG Hemoglobin ABG Oxyhemoglobin ABG Sodium ABG Potassium ABG Chloride ABG Glucose Sodium > 179 H* Potassium 3.5 L Chloride > 139 H Carbon Dioxide 31 H BUN 19 H Glucose 203 H POC Glucose 183 H Calcium Magnesium Ferritin AST ALT Alkaline Phosphatase Lactate Dehydrogenase Total Creatine Kinase CK-MB (CK-2) Total Protein Albumin Arterial Blood Glucose Arterial Blood Ionized Calcium Urine WBC (Auto) Chest x-ray: image reviewed (ETT in good position; clear but COPD pattern) Allied health notes reviewed: nursing
[2020-09-27 07:59] LABS: Total Cells Counted 100
[2020-09-27 08:00] LABS: Anisocytosis 1+; Burr Cells 1+; Hypochromasia 1+; Platelet Estimate Consistent w Auto; Poikilocytosis 1+
[2020-09-27] MEDS: FAMOTIDINE 20 MG TAB PO SCH ×2 (09:15→21:41)
[2020-09-27] MEDS: AZITHROMYCIN/NS 500 MG/250 ML 500 MG/250 ML BAG IV SCH (09:15)
[2020-09-27] MEDS: METOPROLOL TARTRATE 50 MG TAB PO SCH ×2 (09:15→21:40)
[2020-09-27] MEDS: NORepinephrine/NS 4 MG-250 ML 4 MG/250 ML BAG IV SCH (09:18)
--- NOTE | 2020-09-27 09:56 | Cat Scan Report ---
CT HEAD WITHOUT CONTRAST INDICATION : Anoxic Brain Injury. TECHNIQUE: Axial imaging performed from the skull apex through the skull base without the use of con trast. Sagittal and coronal reformatted images. All CT scans at this location are performed using C T dose reduction for ALARA by means of automated exposure control. COMPARISON: 09/24/2020 FINDINGS: Parenchyma: Diffuse brain edema with sulcal effacement, cisternal effacement and poor definition of the jimenez-white interface has developed throughout the supratentorial and infratentorial compartments since the previous exam. No focal hemorrhage or mass is identified. No extra-axial fluid collection. Ventricles: Ventricles are normal in size and appear symmetric. Bones: No acute osseous abnormality. Sinuses: Sinuses and mastoid air cells are clear. Soft tissues: Soft tissues including the orbits appear normal. IMPRESSION: Findings consistent with diffuse anoxic brain injury have developed and are certainly mor e evident than the previous exam on 09/24/2020. No evidence for hemorrhage. Signer Name: Sarabjit Kelly Jr, MD Signed: 09/27/2020 9:51 AM Workstation Name: [id number]
[2020-09-27] MEDS ORDERED: SODIUM BICARBONATE 325 MG TAB FEEDTUBE PRN (10:08)
[2020-09-27] MEDS ORDERED: LIPASE 10,500/PROTEASE 25,000/AMYLASE 43,750 (UNITS) DR CAP FEEDTUBE PRN (10:08)
[2020-09-27] MEDS ORDERED: SIMPLE SYRUP 15 ML FEEDTUBE PRN ×2 (10:08)
[2020-09-27] MEDS: DEXTROSE 5% IN WATER 1,000 ML IV SCH (10:26)
[2020-09-27] MEDS: CEFEPIME/NS 1 GM/100 ML 1 GM/100 ML BAG IV SCH ×2 (10:29→21:32)
[2020-09-27] MEDS: SODIUM CHLORIDE 0.45% 1000 ML 1,000 ML IV SCH ×2 (11:42→21:43)
--- NOTE | 2020-09-27 14:50 | Consultation ---
History of Present Illness Consult date: 09/27/20 Reason for Consult: AMS Chief complaint: AMS History of present illness: 70 yo female with copd, who presents with an out of hospital cardiopulmonary arrest with at least 15 mins for ROSC. Per RN, the patient is not responsive and no clinical seizure like activity is noted. Past History Past Medical History: COPD Past Surgical History: No surgical history Social history: smoking (1/2 Pack a day ). denies: alcohol abuse, IV drug use Family history: other (Father has h/o CHF. Sister has emphesema. ) Medications and Allergies Allergies Allergy/AdvReac Type Severity Reaction Status Date / Time cetirizine [From [facility]] Allergy Hives Verified 05/17/19 15:59 codeine Allergy Itching Verified 04/18/15 18:49 Penicillins Allergy Hives Verified 04/18/15 18:49 pseudoephedrine Allergy Anaphylaxis Verified 05/17/19 15:59 [From [facility]] Sulfa (Sulfonamide Allergy Unknown Verified 04/18/15 18:49 Antibiotics) Home Medications Medication Instructions Recorded Confirmed Last Taken Type Albuterol Mdi (or & Nicu Only) 2 puff IH QID PRN 05/17/19 05/17/19 2 Days Ago History [ProAir HFA Inhaler] ~05/15/19 Ipratropium/Albuterol Sulfate 1 ampul IH Q6HR PRN 05/17/19 05/17/19 1 Day Ago History [DUONEB *Not for PRN Use*] ~05/16/19 Tiotropium Br/Olodaterol HCl 4 gm IH BID 05/17/19 05/17/19 1 Day Ago History [Stiolto Respimat Inhal Felt] ~05/16/19 methylPREDNISolone Sod Suc 80 mg IV Q8HR vial 05/18/19 Unknown Rx [Solu-MEDROL] Active Meds: Active Medications Albuterol (Albuterol 2.5 Mg/3 Ml Nebu) 2.5 mg IH Q4H PRN PRN Reason: Shortness Of Breath Albuterol/Ipratropium (Ipratropium/Albuterol Sulfate 3 Ml Ampul.Neb) 1 ampul IH Q6HRT [facility] Last Admin: 09/27/20 07:38 Dose: 1 ampul Documented by: Lipase/Protease/Amylase (Lipase 10,500/Protease 25,000/Amylase 43,750 (Units) Dr Peterson) 1 each FEEDTUBE PRN PRN PRN Reason: For Clogged Feeding Tube Lipase/Protease/Amylase (Lipase 10,500/Protease 25,000/Amylase 43,750 (Units) Dr Peterson) 1 each FEEDTUBE PRN PRN PRN Reason: For Clogged Feeding Tube Enoxaparin Sodium (Enoxaparin 40 Mg/0.4 Ml Inj) 40 mg SUB-Q QDAY@2200 [facility]; Protocol Last Admin: 09/26/20 22:11 Dose: 40 mg Documented by: Famotidine (Famotidine 20 Mg Tab) 20 mg PO BID [facility] Last Admin: 09/27/20 09:15 Dose: 20 mg Documented by: Fentanyl (Fentanyl 100 Mcg/2 Ml Inj) 50 mcg IV Q10MIN PRN PRN Reason: ANALGESIA Last Admin: 09/25/20 00:45 Dose: 50 mcg Documented by: Hydrophilic Ointment (Lip Therapy Vaseline) 1 applic TP Q2HR PRN PRN Reason: Dry Lips Norepinephrine (Levophed Drip 4 Mg/Ns 250 Ml) 4 mg in 250 mls @ 7.5 mls/hr IV TITR [facility]; Protocol Last Titration: 09/27/20 11:48 Dose: 6 mcg/min, 22.5 mls/hr Documented by: Lorazepam 100 mg/ Sodium Chloride/ Miscellaneous Information 100 mls @ 1 mls/hr IV TITR [facility]; Protocol Last Titration: 09/24/20 17:59 Dose: 0 mg/hr, 0 mls/hr Documented by: Azithromycin (Zithromax/Ns) 500 mg in 250 mls @ 250 mls/hr IV Q24H [facility] Stop: 09/29/20 09:59 Last Admin: 09/27/20 09:15 Dose: 250 mls/hr Documented by: Cefepime HCl (Cefepime/Ns 1 Gm/100 Ml) 1 gm in 100 mls @ 200 mls/hr IV Q12HR [facility]; Protocol Stop: 09/29/20 10:29 Last Admin: 09/27/20 10:29 Dose: 200 mls/hr Documented by: Sodium Chloride (Nacl 0.45% 1000 Ml) 1,000 mls @ 100 mls/hr IV DIRECT [facility] Stop: 09/28/20 21:59 Last Admin: 09/27/20 11:42 Dose: 100 mls/hr Documented by: Insulin Human Regular (Insulin Regular, Human 100 Units/1 Ml) 0 units SUB-Q Q6H [facility]; Protocol Last Admin: 09/27/20 12:58 Dose: 2 units Documented by: Lorazepam (Lorazepam 2 Mg/Ml Vial) 2 mg IV Q10MIN PRN PRN Reason: Agitation Last Admin: 09/24/20 22:28 Dose: 2 mg Documented by: Methylprednisolone Sodium Succinate (Methylprednisolone Sod Succinate 40 Mg/1 Ml Inj) 40 mg IV Q8HR [facility] Last Admin: 09/27/20 06:03 Dose: 40 mg Documented by: Metoprolol Tartrate (Metoprolol Tartrate 50 Mg Tab) 50 mg PO BID [facility] Last Admin: 09/27/20 09:15 Dose: Not Given Documented by: Multi-Ingred Cream/Lotion/Oil/Oint (Mineral Oil/Petrolatum, White Ophth Oint 3.5 Gm) 1 applic OU Q4HR PRN PRN Reason: Dry Eye(s) Simple Syrup (Simple Syrup 15 Ml) 15 ml FEEDTUBE PRN PRN PRN Reason: Hypoglycemia Simple Syrup (Simple Syrup 15 Ml) 30 ml FEEDTUBE PRN PRN PRN Reason: Hypoglycemia Simple Syrup (Simple Syrup 15 Ml) 15 ml FEEDTUBE PRN PRN PRN Reason: Hypoglycemia Simple Syrup (Simple Syrup 15 Ml) 30 ml FEEDTUBE PRN PRN PRN Reason: Hypoglycemia Sodium Bicarbonate (Sodium Bicarbonate 325 Mg Tab) 325 mg FEEDTUBE PRN PRN PRN Reason: For Clogged Feeding Tube Sodium Bicarbonate (Sodium Bicarbonate 325 Mg Tab) 325 mg FEEDTUBE PRN PRN PRN Reason: For Clogged Feeding Tube Review of Systems ROS unobtainable: due to mental status Physical Examination - Vital Signs Vital Signs: Vital Signs Pulse BP Pulse Ox 135 H 150/57 99 09/24/20 06:35 09/24/20 06:35 09/24/20 06:35 - Physical Exam Narrative exam: Gen: nad, well-nourished, intubated; Head: normocephalic; Eyes: no gaze deviation; no ptosis appreciated; ENT: +ETT; CVS: warm and well-perfused; Pulm: no respiratory distress; GI: non-distended, protuberant; Ext: no cyanosis at distal extremities; Skin: no acute rash at distal extremities; Heme: no bruising or ecchymosis at distal extremities; Neuro: comatose, intubated, CN 2 - non-reactive pupils, CN 3, 4, 6 - oculocephalic absent, CN 5/7 - corneal reflex absent, CN 9/10 - no cough reflex elicited via ETT, CN 11/12 - pt cannot cooperate secondary to LOC; Motor/Sensory - 0/5 in all exts to tactile stimuli; Cerebellar/Gait - pt cannot cooperate secondary to LOC; NIHSS>32 Results - Laboratory Findings CBC and BMP: 09/27/20 05:15 09/27/20 05:15 Abnormal Lab Findings: Abnormal Labs 09/24/20 09/24/20 09/24/20 06:40 07:08 07:08 WBC 26.2 H RBC 5.23 H Hct 44.6 H MCH 26 L RDW 18.2 H Lymph % (Auto) 42.7 H Lymph # (Auto) 11.2 H [place] # (Auto) 1.2 H Seg Neuts % (Manual) 36.0 L Lymphocytes % (Manual) 59.0 H Monocytes % (Manual) Seg Neutrophils # 13.4 H Seg Neutrophils # Man 9.4 H Lymphocytes # (Manual) 15.5 H Monocytes # (Manual) INR 1.15 H APTT 23.0 L D-Dimer ABG pH POC ABG pCO2 POC ABG pO2 ABG Hemoglobin ABG Oxyhemoglobin ABG Sodium ABG Potassium ABG Chloride ABG Glucose Sodium Potassium Chloride Carbon Dioxide BUN Glucose POC Glucose 195 H Calcium Magnesium Ferritin AST ALT Alkaline Phosphatase Lactate Dehydrogenase Total Creatine Kinase CK-MB (CK-2) Total Protein Albumin Arterial Blood Glucose Arterial Blood Ionized Calcium Urine WBC (Auto) 09/24/20 09/24/20 09/24/20 07:08 07:08 07:15 WBC RBC Hct MCH RDW Lymph % (Auto) Lymph # (Auto) [place] # (Auto) Seg Neuts % (Manual) Lymphocytes % (Manual) Monocytes % (Manual) Seg Neutrophils # Seg Neutrophils # Man Lymphocytes # (Manual) Monocytes # (Manual) INR APTT D-Dimer ABG pH POC ABG pCO2 POC ABG pO2 ABG Hemoglobin ABG Oxyhemoglobin ABG Sodium ABG Potassium ABG Chloride ABG Glucose Sodium Potassium Chloride Carbon Dioxide BUN Glucose 293 H POC Glucose Calcium Magnesium 2.90 H Ferritin 1063.0 H AST 178 H ALT 185 H Alkaline Phosphatase 144 H Lactate Dehydrogenase 667 H Total Creatine Kinase 273 H CK-MB (CK-2) 4.4 H Total Protein 6.0 L Albumin 3.7 L Arterial Blood Glucose Arterial Blood Ionized Calcium Urine WBC (Auto) 9.0 H 09/24/20 09/24/20 09/24/20 08:02 11:30 17:11 WBC RBC Hct MCH RDW Lymph % (Auto) Lymph # (Auto) [place] # (Auto) Seg Neuts % (Manual) Lymphocytes % (Manual) Monocytes % (Manual) Seg Neutrophils # Seg Neutrophils # Man Lymphocytes # (Manual) Monocytes # (Manual) INR APTT D-Dimer ABG pH 7.218 L POC ABG pCO2 25.8 L POC ABG pO2 203.9 H ABG Hemoglobin 8.7 L ABG Oxyhemoglobin ABG Sodium ABG Potassium 2.0 L ABG Chloride 122.0 H ABG Glucose 129 H Sodium Potassium Chloride Carbon Dioxide BUN Glucose POC Glucose 160 H 115 H Calcium Magnesium Ferritin AST ALT Alkaline Phosphatase Lactate Dehydrogenase Total Creatine Kinase CK-MB (CK-2) Total Protein Albumin Arterial Blood Glucose 129 H Arterial Blood Ionized Calcium 3.2 L Urine WBC (Auto) 09/24/20 09/25/20 09/25/20 23:07 04:50 05:18 WBC RBC Hct MCH RDW Lymph % (Auto) Lymph # (Auto) [place] # (Auto) Seg Neuts % (Manual) Lymphocytes % (Manual) Monocytes % (Manual) Seg Neutrophils # Seg Neutrophils # Man Lymphocytes # (Manual) Monocytes # (Manual) INR APTT D-Dimer ABG pH POC ABG pCO2 POC ABG pO2 133.5 H ABG Hemoglobin ABG Oxyhemoglobin ABG Sodium ABG Potassium ABG Chloride ABG Glucose 149 H Sodium Potassium Chloride Carbon Dioxide BUN Glucose POC Glucose 110 H 130 H Calcium Magnesium Ferritin AST ALT Alkaline Phosphatase Lactate Dehydrogenase Total Creatine Kinase CK-MB (CK-2) Total Protein Albumin Arterial Blood Glucose 149 H Arterial Blood Ionized Calcium 4.4 L Urine WBC (Auto) 09/25/20 09/25/20 09/25/20 11:46 12:34 15:36 WBC 31.6 H RBC 5.37 H Hct MCH 25 L RDW 17.4 H Lymph % (Auto) Lymph # (Auto) [place] # (Auto) Seg Neuts % (Manual) Lymphocytes % (Manual) Monocytes % (Manual) Seg Neutrophils # Seg Neutrophils # Man Lymphocytes # (Manual) Monocytes # (Manual) INR APTT D-Dimer ABG pH POC ABG pCO2 POC ABG pO2 ABG Hemoglobin ABG Oxyhemoglobin ABG Sodium ABG Potassium ABG Chloride ABG Glucose Sodium Potassium Chloride Carbon Dioxide BUN Glucose 152 H POC Glucose 140 H Calcium 8.3 L Magnesium Ferritin AST ALT Alkaline Phosphatase Lactate Dehydrogenase Total Creatine Kinase CK-MB (CK-2) Total Protein Albumin Arterial Blood Glucose Arterial Blood Ionized Calcium Urine WBC (Auto) 09/25/20 09/25/20 09/25/20 15:36 17:20 23:36 WBC RBC Hct MCH RDW Lymph % (Auto) Lymph # (Auto) [place] # (Auto) Seg Neuts % (Manual) Lymphocytes % (Manual) Monocytes % (Manual) Seg Neutrophils # Seg Neutrophils # Man Lymphocytes # (Manual) Monocytes # (Manual) INR APTT D-Dimer > 13928 H ABG pH POC ABG pCO2 POC ABG pO2 ABG Hemoglobin ABG Oxyhemoglobin ABG Sodium ABG Potassium ABG Chloride ABG Glucose Sodium Potassium Chloride Carbon Dioxide BUN Glucose POC Glucose 152 H 177 H Calcium Magnesium Ferritin AST ALT Alkaline Phosphatase Lactate Dehydrogenase Total Creatine Kinase CK-MB (CK-2) Total Protein Albumin Arterial Blood Glucose Arterial Blood Ionized Calcium Urine WBC (Auto) 09/26/20 09/26/20 09/26/20 03:20 05:22 05:30 WBC 24.9 H RBC 5.21 H Hct MCH 26 L RDW 17.9 H Lymph % (Auto) Lymph # (Auto) [place] # (Auto) Seg Neuts % (Manual) 95.0 H Lymphocytes % (Manual) 2.0 L Monocytes % (Manual) Seg Neutrophils # Seg Neutrophils # Man 23.7 H Lymphocytes # (Manual) 0.5 L Monocytes # (Manual) INR APTT D-Dimer ABG pH POC ABG pCO2 POC ABG pO2 70.9 L ABG Hemoglobin ABG Oxyhemoglobin 93.5 L ABG Sodium 156.0 H ABG Potassium ABG Chloride 121.0 H ABG Glucose 273 H Sodium Potassium Chloride Carbon Dioxide BUN Glucose POC Glucose 222 H Calcium Magnesium Ferritin AST ALT Alkaline Phosphatase Lactate Dehydrogenase Total Creatine Kinase CK-MB (CK-2) Total Protein Albumin Arterial Blood Glucose 273 H Arterial Blood Ionized Calcium Urine WBC (Auto) 09/26/20 09/26/20 09/26/20 05:30 05:30 08:55 WBC RBC Hct MCH RDW Lymph % (Auto) Lymph # (Auto) [place] # (Auto) Seg Neuts % (Manual) Lymphocytes % (Manual) Monocytes % (Manual) Seg Neutrophils # Seg Neutrophils # Man Lymphocytes # (Manual) Monocytes # (Manual) INR APTT D-Dimer ABG pH POC ABG pCO2 POC ABG pO2 ABG Hemoglobin ABG Oxyhemoglobin ABG Sodium ABG Potassium ABG Chloride ABG Glucose Sodium 162 H* D 166 H* Potassium Chloride 127.9 H Carbon Dioxide BUN 19 H Glucose 281 H POC Glucose Calcium Magnesium Ferritin AST 86 H ALT 88 H Alkaline Phosphatase Lactate Dehydrogenase Total Creatine Kinase CK-MB (CK-2) Total Protein 5.4 L Albumin 3.4 L Arterial Blood Glucose Arterial Blood Ionized Calcium Urine WBC (Auto) 09/26/20 09/26/20 09/26/20 11:20 17:45 18:44 WBC RBC Hct MCH RDW Lymph % (Auto) Lymph # (Auto) [place] # (Auto) Seg Neuts % (Manual) Lymphocytes % (Manual) Monocytes % (Manual) Seg Neutrophils # Seg Neutrophils # Man Lymphocytes # (Manual) Monocytes # (Manual) INR APTT D-Dimer ABG pH POC ABG pCO2 POC ABG pO2 ABG Hemoglobin ABG Oxyhemoglobin ABG Sodium ABG Potassium ABG Chloride ABG Glucose Sodium 179 H* D Potassium Chloride 139 H Carbon Dioxide BUN 18 H Glucose 200 H POC Glucose 187 H 167 H Calcium Magnesium Ferritin AST ALT Alkaline Phosphatase Lactate Dehydrogenase Total Creatine Kinase CK-MB (CK-2) Total Protein Albumin Arterial Blood Glucose Arterial Blood Ionized Calcium Urine WBC (Auto) 09/26/20 09/27/20 09/27/20 23:17 00:22 02:29 WBC RBC Hct MCH RDW Lymph % (Auto) Lymph # (Auto) [place] # (Auto) Seg Neuts % (Manual) Lymphocytes % (Manual) Monocytes % (Manual) Seg Neutrophils # Seg Neutrophils # Man Lymphocytes # (Manual) Monocytes # (Manual) INR APTT D-Dimer ABG pH POC ABG pCO2 50.1 H POC ABG pO2 73.0 L ABG Hemoglobin ABG Oxyhemoglobin ABG Sodium 182.7 H ABG Potassium ABG Chloride > 120.0 H ABG Glucose 205 H Sodium > 179 H* Potassium Chloride > 139 H Carbon Dioxide BUN 20 H Glucose 189 H POC Glucose 156 H Calcium Magnesium Ferritin AST ALT Alkaline Phosphatase Lactate Dehydrogenase Total Creatine Kinase CK-MB (CK-2) Total Protein Albumin Arterial Blood Glucose 205 H Arterial Blood Ionized Calcium 5.7 H Urine WBC (Auto) 09/27/20 09/27/20 09/27/20 05:13 05:15 05:15 WBC 28.6 H RBC 5.14 H Hct MCH 26 L RDW 18.5 H Lymph % (Auto) Lymph # (Auto) [place] # (Auto) Seg Neuts % (Manual) 88.0 H Lymphocytes % (Manual) 3.0 L Monocytes % (Manual) 9.0 H Seg Neutrophils # Seg Neutrophils # Man 25.2 H Lymphocytes # (Manual) 0.9 L Monocytes # (Manual) 2.6 H INR APTT D-Dimer ABG pH POC ABG pCO2 POC ABG pO2 ABG Hemoglobin ABG Oxyhemoglobin ABG Sodium ABG Potassium ABG Chloride ABG Glucose Sodium > 179 H* Potassium 3.5 L Chloride > 139 H Carbon Dioxide 31 H BUN 19 H Glucose 203 H POC Glucose 183 H Calcium Magnesium Ferritin AST ALT Alkaline Phosphatase Lactate Dehydrogenase Total Creatine Kinase CK-MB (CK-2) Total Protein Albumin Arterial Blood Glucose Arterial Blood Ionized Calcium Urine WBC (Auto) 09/27/20 12:23 WBC RBC Hct MCH RDW Lymph % (Auto) Lymph # (Auto) [place] # (Auto) Seg Neuts % (Manual) Lymphocytes % (Manual) Monocytes % (Manual) Seg Neutrophils # Seg Neutrophils # Man Lymphocytes # (Manual) Monocytes # (Manual) INR APTT D-Dimer ABG pH POC ABG pCO2 POC ABG pO2 ABG Hemoglobin ABG Oxyhemoglobin ABG Sodium ABG Potassium ABG Chloride ABG Glucose Sodium Potassium Chloride Carbon Dioxide BUN Glucose POC Glucose 150 H Calcium Magnesium Ferritin AST ALT Alkaline Phosphatase Lactate Dehydrogenase Total Creatine Kinase CK-MB (CK-2) Total Protein Albumin Arterial Blood Glucose Arterial Blood Ionized Calcium Urine WBC (Auto) Assessment and Plan 70 yo female with possible copd exacerbation w/ an out of hospital cardiopulmonary arrest w/ ROSC of 15 minutes with a NCHCT reveaing difuse hyp oxic anoxic injury. 1. Hypoxic Anoxic Encephalopathy - noted on nchct; confirm w/ mr brain and EEG. 2. Concern is raised for brain but exam cannot be performed or approved to be done via teleneurology. Alex Malone MD Neurology
--- NOTE | 2020-09-27 16:02 | Event Note ---
Date: 09/27/20 Discussed with by phone - updated all clinical details and answered all his question to best of my knowledge Patient has no cough/gag/papillary reflex Unresponsive and comatose EEG showed no sig brain wave/activity Noted neuro recommendation Patient most likely brain with severe diffuse anoxic brain injury came to visit the patient had another family meeting in the waiting area with felizbd, sisters and daughter on the phone CM was present in the meeting wants to proceed with DNR and hospice Paper signed and consult placed for hospice
--- NOTE | 2020-09-27 16:22 | Progress Note ---
Assessment and Plan Acute metabolic encephalopathy/anoxic brain injury -CT head on admission showed early sign of anoxic brain injury -We will follow clinically, repeat CT head today showed persistent and more evident diffuse anoxic brain injury -ordered for EEG and neuro eval : Neurology suggested evaluation for possible brain Status post cardiac arrest -Per EMS patient was in asystole for about 15 minutes -Preserved EF on 2D echo, continue to monitor -Wean off pressors as tolerated Acute hypoxic respiratory failure - patient intubated -negative for COVID-19, will continue to treat for aspiration pneumonia and COPD exacerbation -Placed on IV antibiotic, schedule nebulizer, Severe septic shock -Placed on pressor support, cont to wean off as tolerated -negative Cx so far Right lower lobe pneumonia, likely due to aspiration -Continue antibiotic, ruled out COVID-19 COVID-19 PUI, ruled out Diabetes mellitus type 2 -On sliding scale of insulin Acute COPD exacerbation -Continue steroid and nebulizer breathing treatment Hyperlipidemia, hold statin for now due to elevated LFT Elevated LFT due to shock liver -Continue to monitor History of tobacco abuse, counseling will be done when patient is clinically stable hypernatremia, continue on hypotonic fluid, monitor BMP Full CODE STATUS Extremely poor prognosis The high probability of a clinically significant, sudden or life threatening 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 The aggregate critical care time was [42] minutes. This time is in addition to time spent performing reported procedures but includes the following: [x] Data Review and interpretation [x] Patient assessment and monitoring of vital signs [x] Documentation [x] Medication orders and management Daily course: 09/25: Call patient and updated with the patient's clinical status. Answered all his questions to best of my knowledge and to his satisfaction. Patient has been was informed about patient's CT head findings. Will await for EEG and neuro eval. Continue supportive care for now patient remains on mechanical ventilation. Weaned off from pressor. Will start on tube feeding. Continue to monitor serum chemistry and CBC. COVID-19 test pending. Continue empiric antibiotics. Will order D-dimer and if D-dimer elevated will do work-up for possible PE and DVT. Placed on prophylactic Lovenox dose for now. 09/26: Patient remains intubated, restarted on pressor support. Sodium level today 166, change IV fluid to D5W. Monitor BMP every 6 hours. Monitor H&H. Very poor prognosis. Discussed with Jewel MATUTE and also updated family by phone. 09/27: Repeat CT head showed severe anoxic brain injury. Discussed with , daughter and sisters by phone and in person in details. wants DNR and hospice - ordered. cont supportive care Subjective Date of service: 09/27/20 Principal diagnosis: Cardiac arrest; Ac hypoxemic resp failure; Septic shock; PUI COVID-19 Interval history: Patient seen and examined in the ICU Patient remains on mechanical ventilation Patient remains off sedation comatose Discussed with RN at the bedside Called and discuss clinical details Objective - Exam Narrative Exam: Vital reviewed and stable. GENERAL: well-developed well-nourished elderly female lying on bed who is currently intubated, comatose. HEENT: Normocephalic. Atraumatic. Patient has dilated unreactive pupil, no pupillary reflex no gag on cough reflex NECK: Supple. CHEST/LUNGS: Patient on mechanical ventilation HEART/CARDIOVASCULAR: Heart rate stable on telemetry ABDOMEN: Visibly not distended SKIN: There is no rash NEURO: Unresponsive, intubated MUSCULOSKELETAL: No joint effusion EXTRIMITY: No swelling, no cyanosis or clubbing. PSYCH: Unable to assess - Constitutional Vitals: Vital Signs - 12hr 09/27/20 09/27/20 09/27/20 04:30 04:45 05:00 Temperature Pulse Rate 76 75 75 Pulse Rate [ Anterior Bilateral Throughout] Pulse Rate [ Bilateral] Pulse Rate [ From Monitor] Respiratory 12 12 12 Rate Respiratory Rate [Anterior Bilateral Throughout] Respiratory Rate [Bilateral ] Blood Pressure 105/56 103/50 95/48 O2 Sat by Pulse 94 95 95 Oximetry 09/27/20 09/27/20 09/27/20 05:15 05:30 05:45 Temperature Pulse Rate 74 73 72 Pulse Rate [ Anterior Bilateral Throughout] Pulse Rate [ Bilateral] Pulse Rate [ From Monitor] Respiratory 12 12 12 Rate Respiratory Rate [Anterior Bilateral Throughout] Respiratory Rate [Bilateral ] Blood Pressure 91/52 90/52 80/48 O2 Sat by Pulse 95 91 92 Oximetry 09/27/20 09/27/20 09/27/20 06:00 06:15 06:30 Temperature Pulse Rate 71 72 71 Pulse Rate [ Anterior Bilateral Throughout] Pulse Rate [ Bilateral] Pulse Rate [ From Monitor] Respiratory 12 12 12 Rate Respiratory Rate [Anterior Bilateral Throughout] Respiratory Rate [Bilateral ] Blood Pressure 92/44 96/47 91/52 O2 Sat by Pulse 93 93 92 Oximetry 09/27/20 09/27/20 09/27/20 06:45 07:00 07:15 Temperature Pulse Rate 71 71 71 Pulse Rate [ Anterior Bilateral Throughout] Pulse Rate [ Bilateral] Pulse Rate [ From Monitor] Respiratory 12 12 12 Rate Respiratory Rate [Anterior Bilateral Throughout] Respiratory Rate [Bilateral ] Blood Pressure 88/47 87/43 79/39 O2 Sat by Pulse 93 92 93 Oximetry 09/27/20 09/27/20 09/27/20 07:30 07:39 07:45 Temperature Pulse Rate 74 76 Pulse Rate [ 76 Anterior Bilateral Throughout] Pulse Rate [ Bilateral] Pulse Rate [ From Monitor] Respiratory 12 12 Rate Respiratory 12 Rate [Anterior Bilateral Throughout] Respiratory Rate [Bilateral ] Blood Pressure 97/52 102/52 O2 Sat by Pulse 92 Oximetry 09/27/20 09/27/20 09/27/20 08:00 08:16 08:30 Temperature 98.5 F Pulse Rate 82 86 89 Pulse Rate [ Anterior Bilateral Throughout] Pulse Rate [ Bilateral] Pulse Rate [ 82 From Monitor] Respiratory 12 12 12 Rate Respiratory Rate [Anterior Bilateral Throughout] Respiratory Rate [Bilateral ] Blood Pressure 94/51 100/56 O2 Sat by Pulse 88 89 91 Oximetry 09/27/20 09/27/20 09/27/20 08:45 09:00 09:15 Temperature Pulse Rate 89 89 88 Pulse Rate [ Anterior Bilateral Throughout] Pulse Rate [ Bilateral] Pulse Rate [ From Monitor] Respiratory 12 12 12 Rate Respiratory Rate [Anterior Bilateral Throughout] Respiratory Rate [Bilateral ] Blood Pressure 90/52 102/51 100/56 O2 Sat by Pulse 89 90 90 Oximetry 09/27/20 09/27/20 09/27/20 09:49 10:00 10:15 Temperature Pulse Rate 81 80 82 Pulse Rate [ Anterior Bilateral Throughout] Pulse Rate [ Bilateral] Pulse Rate [ From Monitor] Respiratory 14 12 12 Rate Respiratory Rate [Anterior Bilateral Throughout] Respiratory Rate [Bilateral ] Blood Pressure 100/56 108/59 107/56 O2 Sat by Pulse 100 96 94 Oximetry 09/27/20 09/27/20 09/27/20 10:30 10:45 11:00 Temperature Pulse Rate 83 83 82 Pulse Rate [ Anterior Bilateral Throughout] Pulse Rate [ Bilateral] Pulse Rate [ From Monitor] Respiratory 12 12 12 Rate Respiratory Rate [Anterior Bilateral Throughout] Respiratory Rate [Bilateral ] Blood Pressure 98/53 101/51 94/52 O2 Sat by Pulse 94 94 94 Oximetry 09/27/20 09/27/20 09/27/20 11:15 11:30 11:45 Temperature Pulse Rate 82 83 84 Pulse Rate [ Anterior Bilateral Throughout] Pulse Rate [ Bilateral] Pulse Rate [ From Monitor] Respiratory 12 12 12 Rate Respiratory Rate [Anterior Bilateral Throughout] Respiratory Rate [Bilateral ] Blood Pressure 99/54 101/53 104/56 O2 Sat by Pulse 95 96 96 Oximetry 09/27/20 09/27/20 09/27/20 12:00 12:11 15:36 Temperature 98.8 F Pulse Rate 83 81 74 Pulse Rate [ Anterior Bilateral Throughout] Pulse Rate [ Bilateral] Pulse Rate [ 84 From Monitor] Respiratory 12 Rate Respiratory Rate [Anterior Bilateral Throughout] Respiratory Rate [Bilateral ] Blood Pressure 94/47 114/54 O2 Sat by Pulse 94 98 97 Oximetry 09/27/20 15:43 Temperature Pulse Rate Pulse Rate [ 73 Anterior Bilateral Throughout] Pulse Rate [ 73 Bilateral] Pulse Rate [ From Monitor] Respiratory Rate Respiratory 12 Rate [Anterior Bilateral Throughout] Respiratory 12 Rate [Bilateral ] Blood Pressure O2 Sat by Pulse Oximetry - Labs CBC & Chem 7: 09/27/20 05:15 09/28/20 05:13 Labs: Abnormal lab results 09/26/20 09/26/20 09/26/20 Range/Units 17:45 18:44 23:17 WBC (4.5-11.0) K/mm3 RBC (3.65-5.03) M/mm3 MCH (28-32) pg RDW (13.2-15.2) % Seg Neuts % (Manual) (40.0-70.0) % Lymphocytes % (Manual) (13.4-35.0) % Monocytes % (Manual) (0.0-7.3) % Seg Neutrophils # Man (1.8-7.7) K/mm3 Lymphocytes # (Manual) (1.2-5.4) K/mm3 Monocytes # (Manual) (0.0-0.8) K/mm3 POC ABG pCO2 (32.0-48.0) mmHg POC ABG pO2 (83-108) mmHg ABG Sodium (136.0-145.0) mmol/L ABG Chloride (98-107) mmol/L ABG Glucose (65-95) mg/dL Sodium 179 H* D (137-145) mmol/L Potassium (3.6-5.0) mmol/L Chloride 139 H (98-107) mmol/L Carbon Dioxide (22-30) mmol/L BUN 18 H (7-17) mg/dL Glucose 200 H (65-100) mg/dL POC Glucose 167 H 156 H (70-105) mg/dL Arterial Blood Glucose (65-95) mg/dL Arterial Blood Ionized Calcium (4.6-5.3) mg/dL 09/27/20 09/27/20 09/27/20 Range/Units 00:22 02:29 05:13 WBC (4.5-11.0) K/mm3 RBC (3.65-5.03) M/mm3 MCH (28-32) pg RDW (13.2-15.2) % Seg Neuts % (Manual) (40.0-70.0) % Lymphocytes % (Manual) (13.4-35.0) % Monocytes % (Manual) (0.0-7.3) % Seg Neutrophils # Man (1.8-7.7) K/mm3 Lymphocytes # (Manual) (1.2-5.4) K/mm3 Monocytes # (Manual) (0.0-0.8) K/mm3 POC ABG pCO2 50.1 H (32.0-48.0) mmHg POC ABG pO2 73.0 L (83-108) mmHg ABG Sodium 182.7 H (136.0-145.0) mmol/L ABG Chloride > 120.0 H (98-107) mmol/L ABG Glucose 205 H (65-95) mg/dL Sodium > 179 H* (137-145) mmol/L Potassium (3.6-5.0) mmol/L Chloride > 139 H (98-107) mmol/L Carbon Dioxide (22-30) mmol/L BUN 20 H (7-17) mg/dL Glucose 189 H (65-100) mg/dL POC Glucose 183 H (70-105) mg/dL Arterial Blood Glucose 205 H (65-95) mg/dL Arterial Blood Ionized Calcium 5.7 H (4.6-5.3) mg/dL 09/27/20 09/27/20 09/27/20 Range/Units 05:15 05:15 12:23 WBC 28.6 H (4.5-11.0) K/mm3 RBC 5.14 H (3.65-5.03) M/mm3 MCH 26 L (28-32) pg RDW 18.5 H (13.2-15.2) % Seg Neuts % (Manual) 88.0 H (40.0-70.0) % Lymphocytes % (Manual) 3.0 L (13.4-35.0) % Monocytes % (Manual) 9.0 H (0.0-7.3) % Seg Neutrophils # Man 25.2 H (1.8-7.7) K/mm3 Lymphocytes # (Manual) 0.9 L (1.2-5.4) K/mm3 Monocytes # (Manual) 2.6 H (0.0-0.8) K/mm3 POC ABG pCO2 (32.0-48.0) mmHg POC ABG pO2 (83-108) mmHg ABG Sodium (136.0-145.0) mmol/L ABG Chloride (98-107) mmol/L ABG Glucose (65-95) mg/dL Sodium > 179 H* (137-145) mmol/L Potassium 3.5 L (3.6-5.0) mmol/L Chloride > 139 H (98-107) mmol/L Carbon Dioxide 31 H (22-30) mmol/L BUN 19 H (7-17) mg/dL Glucose 203 H (65-100) mg/dL POC Glucose 150 H (70-105) mg/dL Arterial Blood Glucose (65-95) mg/dL Arterial Blood Ionized Calcium (4.6-5.3) mg/dL HEART Score - HEART Score Troponin: Troponin T < 0.010 ng/mL (0.00-0.029) 09/24/20 07:08
[2020-09-27] MEDS: ENOXAPARIN 40 MG/0.4 ML INJ SUB-Q SCH (21:39)
[2020-09-28] MEDS: INSULIN REGULAR, HUMAN 100 UNITS/1 ML SUB-Q SCH ×3 (00:13→14:10)
[2020-09-28] MEDS: IPRATROPIUM/ALBUTEROL SULFATE 3 ML AMPUL.NEB IH SCH ×3 (02:26→14:50)
--- NOTE | 2020-09-28 03:09 | XRay Report ---
CHEST 1 VIEW 09/28/2020 2:32 AM INDICATION / CLINICAL INFORMATION: follow up respiratory failure. COMPARISON: 09/27/20 FINDINGS: SUPPORT DEVICES: Stable, satisfactory device positioning. HEART / MEDIASTINUM: Stable. LUNGS / PLEURA: No acute airspace disease. No pneumothorax. ADDITIONAL FINDINGS: No significant additional findings. IMPRESSION: 1. No acute findings. Signer Name: Mary Hernandez MD Signed: 09/28/2020 3:05 AM Workstation Name: [id number]
[2020-09-28 04:49] LABS: Bilirubin,Urine NEG (Negative); Blood,Urine SM (Negative); Color,Urine Yellow (Yellow); Mucus,Urine FEW /HPF; Urobilinogen,Urine < 2.0 mg/dL (<2.0)
[2020-09-28] MEDS: methylPREDNISolone Sod Succinate 40 MG/1 ML INJ IV SCH ×2 (05:42→14:45)
[2020-09-28 06:48] LABS: Calcium 8.5 mg/dL (8.4-10.2)
[2020-09-28] MEDS: AZITHROMYCIN/NS 500 MG/250 ML 500 MG/250 ML BAG IV SCH (09:20)
[2020-09-28] MEDS ORDERED: EPINEPHrine 1 MG/10 ML SYRINGE ONE (10:00)
[2020-09-28] MEDS: FAMOTIDINE 20 MG TAB PO SCH (10:09)
[2020-09-28] MEDS: METOPROLOL TARTRATE 50 MG TAB PO SCH (10:09)
[2020-09-28] MEDS: CEFEPIME/NS 1 GM/100 ML 1 GM/100 ML BAG IV SCH (10:09)
[2020-09-28] MEDS: NORepinephrine/NS 4 MG-250 ML 4 MG/250 ML BAG IV SCH (10:15)
--- NOTE | 2020-09-28 10:27 | Consultation ---
History of Present Illness - Reason for Consult Consult date: 09/28/20 hypernatremia - History of Present Illness The patient is a 70 YO female with history significant for Tobacco use and COPD not on home O2 who presented to [facility] ED 09/24 after having a cardiac arrest at home. Per patient was feeling sick for about a week with diffuse wheezing and difficulty to sleep at night. She presented to a urgent care center, her Covid test that time was negative and was diagnosed with COPD e xacerbation and mild pneumonia. Patient was given a tapering dose of prednisone and antibiotic. Per patient was getting better and actually was able to sleep good for last 2 night prior to this admission. Today patient was getting dressed up and per she suddenly then blacked out and started to gasp for the air. said patient eventually became unresponsive but her eyes were open, he initiated chest compression and [id number] breathing. EMS was called and she was transported to [facility] ER. When patient reached ER the CPR was in progress. They had placed a Dean air and delivered 2 mg of epinephrine prior to arrival. Per EMS the patient was in asystole for approximately 15 minutes. Upon arrival, ER physician noted that the patient actually did have a pulse. The patient was sedated with an endotracheal tube. A right internal jugular line was placed. Initially the blood pressure was high. Later it became normotensive. It started to drop and the patient was given a 2 L bolus. Finally she was placed on Levophed. Initially the patient was found to be comp letely unresponsive, Upon observation the patient demonstrated some eye-opening which appeared to be related to stimuli. She did not have any spontaneous movement of her extremities. She was not able to follow commands. Past History Past Medical History: COPD Past Surgical History: No surgical history Social history: smoking (1/2 Pack a day ). denies: alcohol abuse, IV drug use Family history: other (Father has h/o CHF. Sister has emphesema. ) Medications and Allergies Allergies Allergy/AdvReac Type Severity Reaction Status Date / Time cetirizine [From Zyrtec] Allergy Hives Verified 05/17/19 15:59 codeine Allergy Itching Verified 04/18/15 18:49 Penicillins Allergy Hives Verified 04/18/15 18:49 pseudoephedrine Allergy Anaphylaxis Verified 05/17/19 15:59 [From [facility]] Sulfa (Sulfonamide Allergy Unknown Verified 04/18/15 18:49 Antibiotics) Home Medications Medication Instructions Recorded Confirmed Last Taken Type Albuterol Mdi (or & Nicu Only) 2 puff IH QID PRN 05/17/19 05/17/19 2 Days Ago History [ProAir HFA Inhaler] ~05/15/19 Ipratropium/Albuterol Sulfate 1 ampul IH Q6HR PRN 05/17/19 05/17/19 1 Day Ago History [DUONEB *Not for PRN Use*] ~05/16/19 Tiotropium Br/Olodaterol HCl 4 gm IH BID 05/17/19 05/17/19 1 Day Ago History [Stiolto Respimat Inhal [place]] ~05/16/19 methylPREDNISolone Sod Suc 80 mg IV Q8HR vial 05/18/19 Unknown Rx [Solu-MEDROL] Active Meds: Active Medications Albuterol (Albuterol 2.5 Mg/3 Ml Nebu) 2.5 mg IH Q4H PRN PRN Reason: Shortness Of Breath Albuterol/Ipratropium (Ipratropium/Albuterol Sulfate 3 Ml Ampul.Neb) 1 ampul IH Q6HRT [facility] Last Admin: 09/28/20 02:26 Dose: 1 ampul Documented by: Lipase/Protease/Amylase (Lipase 10,500/Protease 25,000/Amylase 43,750 (Units) Dr Cap) 1 each FEEDTUBE PRN PRN PRN Reason: For Clogged Feeding Tube Enoxaparin Sodium (Enoxaparin 40 Mg/0.4 Ml Inj) 40 mg SUB-Q QDAY@2200 [facility]; Protocol Last Admin: 09/27/20 21:39 Dose: 40 mg Documented by: Famotidine (Famotidine 20 Mg Tab) 20 mg PO BID [facility] Last Admin: 09/28/20 10:09 Dose: 20 mg Documented by: Fentanyl (Fentanyl 100 Mcg/2 Ml Inj) 50 mcg IV Q10MIN PRN PRN Reason: ANALGESIA Last Admin: 09/25/20 00:45 Dose: 50 mcg Documented by: Hydrophilic Ointment (Lip Therapy Vaseline) 1 applic TP Q2HR PRN PRN Reason: Dry Lips Norepinephrine (Levophed Drip 4 Mg/Ns 250 Ml) 4 mg in 250 mls @ 7.5 mls/hr IV TITR [facility]; Protocol Last Titration: 09/28/20 10:16 Dose: 2 mcg/min, 7.5 mls/hr Documented by: Lorazepam 100 mg/ Sodium Chloride/ Miscellaneous Information 100 mls @ 1 mls/hr IV TITR [facility]; Protocol Last Titration: 09/24/20 17:59 Dose: 0 mg/hr, 0 mls/hr Documented by: Azithromycin (Zithromax/Ns) 500 mg in 250 mls @ 250 mls/hr IV Q24H [facility] Stop: 09/29/20 09:59 Last Admin: 09/28/20 09:20 Dose: 250 mls/hr Documented by: Cefepime HCl (Cefepime/Ns 1 Gm/100 Ml) 1 gm in 100 mls @ 200 mls/hr IV Q12HR [facility]; Protocol Stop: 09/29/20 10:29 Last Admin: 09/28/20 10:09 Dose: 200 mls/hr Documented by: Sodium Chloride (Nacl 0.45% 1000 Ml) 1,000 mls @ 100 mls/hr IV DIRECT [facility] Stop: 09/28/20 21:59 Last Admin: 09/27/20 21:43 Dose: 100 mls/hr Documented by: Insulin Human Regular (Insulin Regular, Human 100 Units/1 Ml) 0 units SUB-Q Q6H [facility]; Protocol Last Admin: 09/28/20 05:36 Dose: 2 units Documented by: Lorazepam (Lorazepam 2 Mg/Ml Vial) 2 mg IV Q10MIN PRN PRN Reason: Agitation Last Admin: 09/24/20 22:28 Dose: 2 mg Documented by: Methylprednisolone Sodium Succinate (Methylprednisolone Sod Succinate 40 Mg/1 Ml Inj) 40 mg IV Q8HR [facility] Last Admin: 09/28/20 05:42 Dose: 40 mg Documented by: Metoprolol Tartrate (Metoprolol Tartrate 50 Mg Tab) 50 mg PO BID [facility] Last Admin: 09/28/20 10:09 Dose: Not Given Documented by: Multi-Ingred Cream/Lotion/Oil/Oint (Mineral Oil/Petrolatum, White Ophth Oint 3.5 Gm) 1 applic OU Q4HR PRN PRN Reason: Dry Eye(s) Simple Syrup (Simple Syrup 15 Ml) 15 ml FEEDTUBE PRN PRN PRN Reason: Hypoglycemia Simple Syrup (Simple Syrup 15 Ml) 30 ml FEEDTUBE PRN PRN PRN Reason: Hypoglycemia Sodium Bicarbonate (Sodium Bicarbonate 325 Mg Tab) 325 mg FEEDTUBE PRN PRN PRN Reason: For Clogged Feeding Tube Exam - Vital Signs Vital signs: Vital Signs Pulse BP Pulse Ox 135 H 150/57 99 09/24/20 06:35 09/24/20 06:35 09/24/20 06:35 Results - Lab Results 09/27/20 05:15 09/28/20 05:13 Most recent lab results ABG pH 7.357 (7.320-7.450) 09/28/20 02:54 Calcium 8.5 mg/dL (8.4-10.2) 09/28/20 05:13 Phosphorus 3.30 mg/dL (2.5-4.5) 09/28/20 05:13 Magnesium 2.90 mg/dL (1.7-2.3) H 09/24/20 07:08
--- NOTE | 2020-09-28 11:14 | Discharge Summary ---
Providers - Providers Date of Admission: 09/24/20 09:07 Date of discharge: 09/28/20 Attending physician: KEANU GOETZ 09/24/20 07:19 Consult to Dietitian/Nutrition [CONS] Routine Physician Instructions: Reason For Exam: Reason for Consult: Evaluate nutritional intake 09/24/20 09:22 Consult to Physician [CONS] Routine Comment: Consulting Provider: JERALD CARMICHAEL Physician Instructions: Reason For Exam: critical care 09/26/20 08:10 Consult to Dietitian/Nutrition [CONS] Routine Physician Instructions: Assess nutrtn needs, initiate, modify, manage TF Reason For Exam: Reason for Consult: Write/Manage Tube Feeding Reason for Consult: Write/Manage Tube Feeding 09/27/20 10:08 Consult to Dietitian/Nutrition [CONS] Routine Physician Instructions: Assess nutrtn needs, initiate, modify, manage TF Reason For Exam: Reason for Consult: Write/Manage Tube Feeding Reason for Consult: Write/Manage Tube Feeding 09/27/20 10:13 Consult to Physician [CONS] Routine Comment: Consulting Provider: SHILO VÁZQUEZ Physician Instructions: Reason For Exam: anoxic brain injury 09/27/20 11:52 Consult to Physician [CONS] Routine Comment: Consulting Provider: CHRISTINA MARTINEZ Physician Instructions: Reason For Exam: hypernatremia 09/27/20 16:13 Consult to Case Management [CONS] Routine Services Needed at Discharge: Other Notified:: The quality assurance monitor answering service. Was contact made?: Yes If yes, spoke with:: Patricia Time called:: 14:00 Comment:: Consult called in for high sodium Additional Physician Instructions: hospice Primary care physician: EXECUTIVE LEGAL SECRETARY Hospitalization Condition: Stable Hospital course: Daily course: 09/25: Call patient and updated with the patient's clinical status. Answered all his questions to best of my knowledge and to his satisfaction. Patient has been was informed about patient's CT head findings. Will await for EEG and neuro eval. Continue supportive care for now patient remains on mechanical ventilation. Weaned off from pressor. Will start on tube feeding. Continue to monitor serum chemistry and CBC. COVID-19 test pending. Continue empiric antibiotics. Will order D-dimer and if D-dimer elevated will do work-up for possible PE and DVT. Placed on prophylactic Lovenox dose for now. 09/26: Patient remains intubated, restarted on pressor support. Sodium level today 166, change IV fluid to D5W. Monitor BMP every 6 hours. Monitor H&H. Very poor prognosis. Discussed with Jewel MATUTE and also updated family by phone. 09/27: Repeat CT head showed severe anoxic brain injury. Discussed with , daughter and sisters by phone and in person in details. wants DNR and hospice - ordered. cont supportive care 09/28: patient accepted to inpt hospice. d/c to inpt hospice after another covid test Discharge diagnosis: Acute metabolic encephalopathy/anoxic brain injury -CT head on admission showed early sign of anoxic brain injury -We will follow clinically, repeat CT head today showed persistent and more evident diffuse anoxic brain injury -ordered for EEG and neuro eval : Neurology suggested evaluation for possible brain Status post cardiac arrest -Per EMS patient was in asystole for about 15 minutes -Preserved EF on 2D echo, continue to monitor -Wean off pressors as tolerated Acute hypoxic respiratory failure - patient intubated -negative for COVID-19, will continue to treat for aspiration pneumonia and COPD exacerbation -Placed on IV antibiotic, schedule nebulizer, Severe septic shock -Placed on pressor support, cont to wean off as tolerated -negative Cx so far Right lower lobe pneumonia, likely due to aspiration -Continue antibiotic, ruled out COVID-19 COVID-19 PUI, ruled out Diabetes mellitus type 2 -On sliding scale of insulin Acute COPD exacerbation -Continue steroid and nebulizer breathing treatment Hyperlipidemia, hold statin for now due to elevated LFT Elevated LFT due to shock liver -Continue to monitor History of tobacco abuse, counseling will be done when patient is clinically stable hypernatremia, continue on hypotonic fluid, monitor BMP DNR code status Extremely poor prognosis Disposition: DC-01 TO HOME OR SELFCARE Time spent for discharge: 34 minutes Core Measure Documentation - Palliative Care Palliative Care/ Comfort Measures: Hospice Care - Core Measures Any of the following diagnoses?: none Exam - Physical Exam Narrative exam: Vital reviewed and stable. GENERAL: well-developed well-nourished elderly female lying on bed who is currently intubated, comatose. HEENT: Normocephalic. Atraumatic. Patient has dilated unreactive pupil, no pupillary reflex no gag on cough reflex NECK: Supple. CHEST/LUNGS: Patient on mechanical ventilation HEART/CARDIOVASCULAR: Heart rate stable on telemetry ABDOMEN: Visibly not distended SKIN: There is no rash NEURO: Unresponsive, intubated MUSCULOSKELETAL: No joint effusion EXTRIMITY: No swelling, no cyanosis or clubbing. PSYCH: Unable to assess - Constitutional Vitals: Temp Pulse Resp BP Pulse Ox 100.3 F H 75 12 91/40 95 09/28/20 08:00 09/28/20 10:09 09/28/20 09:00 09/28/20 10:09 09/28/20 09:00 Plan Follow up with: PRIMARY CAREMD [Primary Care Provider] - 3-5 Days
--- NOTE | 2020-09-28 12:25 | Progress Note ---
Assessment and Plan Status post cardiac arrest, out of hospital with ROSC Acute hypoxic-hypercapnic respiratory failure Severe septic shock COVID-19 pneumonia-PUI Hypernatremia Diabetes mellitus type 2 COPD/Emphysema Hyperlipidemia Elevated LFT due to shock liver - tentativelyu to transfer to hospice care today - continue care as below meanwhile; - continue to wean vasopressor support for MAP >65 - VAP bundle addressed, aspiration precautions HOB >40 degrees - Adjust minute ventilation for better gas-exchange - Monitor airway pressures, lung protective strategies, monitor P/F ratio - Wean supplemental oxygen for target O2 sats > 92% - Daily assessment for readiness to wean. - continue bronchodilators with pulmonary hygiene per RT - Start trophic enteric feeding via OGT, place burr grinder consult - Transthoracic echocardiogram to evaluate LVEF and for pulmonary HTN - Accuchecks with glycemic control per SSI (While critically ill target blood glucose of 140-180 mg/dL; avoid hypoglycemia) - Avoid nephrotoxins, renally dose all medications - Avoid benzodiazepines, reduce the possibility of delirium - COVID isolation protocols until COVID testing is resulted - prn analgesia per CPOT score - Maintenance of sleep-wake cycle, avoid delirium - VTE prophylaxis- Enoxaparin - Stress ulcer prophylaxis- Famotidine - ROM exercises - Mobility per facility protocol for pressure ulcer prevention - Monitor hemodynamics closely - Antibiotics per primary service, will consult ID - Get EEG in 48 hours - ABG in am, ABG and CXR as clinically indicated - continue other care per attending / other consultants CONDITION: CRITICAL PROGNOSIS: GUARDED CODE STATUS; FULL CODE Discussed with her daughter Torrey Pate, and she confirms that her mother is full aggressive care, full code in the event of cardiopulmonary arrest The high probability of a clinically significant, sudden or life threatening deterioration of the [FINANCIAL SERVICE REPRESENTATIVE, respiratory, CVS] system(s) required my full and direct attention, intervention and personal management. The aggregate critical care time was [32] minutes. This time is in addition to time spent performing reported procedures but includes the following: [x] Data Review and interpretation [x] Patient assessment and monitoring of vital signs [x] Documentation [x] Medication orders and management Subjective Date of service: 09/28/20 Principal diagnosis: Cardiac arrest; Ac hypoxemic resp failure; Septic shock; PUI COVID-19 Interval history: Patient is seen today for: OOH cardiac arrest with ROSC; Acute hypoxemic- hypercapnic respiratory failure; Septic shock; PUI COVID-19 pneumonia; DM II; COPD/Emphysema; Elevated LFT due to shock liver Seen and examined at bedside; 24hour events reviewed; nursing and respiratory care staff consulted; no adverse overnight events reported to me; resting peacefully in bed; remains on MVS; AMS is persistent; tentatively to transfer to inpatient hospice Objective Vital Signs - 12hr 09/28/20 09/28/20 09/28/20 00:30 00:45 01:00 Temperature Pulse Rate 73 74 74 Pulse Rate [ Anterior Bilateral Throughout] Pulse Rate [ Bilateral] Pulse Rate [ From Monitor] Respiratory 12 12 12 Rate Respiratory Rate [Anterior Bilateral Throughout] Respiratory Rate [Bilateral ] Blood Pressure 106/50 106/47 100/48 O2 Sat by Pulse 94 94 94 Oximetry 09/28/20 09/28/20 09/28/20 01:15 01:30 01:45 Temperature Pulse Rate 73 73 74 Pulse Rate [ Anterior Bilateral Throughout] Pulse Rate [ Bilateral] Pulse Rate [ From Monitor] Respiratory 12 12 12 Rate Respiratory Rate [Anterior Bilateral Throughout] Respiratory Rate [Bilateral ] Blood Pressure 90/43 91/46 96/48 O2 Sat by Pulse 95 97 94 Oximetry 09/28/20 09/28/20 09/28/20 02:00 02:15 02:18 Temperature Pulse Rate 75 78 Pulse Rate [ 77 Anterior Bilateral Throughout] Pulse Rate [ 77 Bilateral] Pulse Rate [ From Monitor] Respiratory 12 12 Rate Respiratory 12 Rate [Anterior Bilateral Throughout] Respiratory 12 Rate [Bilateral ] Blood Pressure 90/44 93/45 O2 Sat by Pulse 95 95 Oximetry 09/28/20 09/28/20 09/28/20 02:30 02:45 03:00 Temperature Pulse Rate 80 80 80 Pulse Rate [ Anterior Bilateral Throughout] Pulse Rate [ Bilateral] Pulse Rate [ From Monitor] Respiratory 12 12 12 Rate Respiratory Rate [Anterior Bilateral Throughout] Respiratory Rate [Bilateral ] Blood Pressure 94/45 93/46 94/46 O2 Sat by Pulse 94 95 93 Oximetry 09/28/20 09/28/20 09/28/20 03:15 03:30 03:44 Temperature 99.3 F Pulse Rate 81 79 Pulse Rate [ Anterior Bilateral Throughout] Pulse Rate [ Bilateral] Pulse Rate [ From Monitor] Respiratory 12 12 Rate Respiratory Rate [Anterior Bilateral Throughout] Respiratory Rate [Bilateral ] Blood Pressure 99/47 92/47 O2 Sat by Pulse 94 98 Oximetry 09/28/20 09/28/20 09/28/20 03:45 04:00 04:15 Temperature Pulse Rate 80 80 77 Pulse Rate [ Anterior Bilateral Throughout] Pulse Rate [ Bilateral] Pulse Rate [ 73 From Monitor] Respiratory 07 30 12 Rate Respiratory Rate [Anterior Bilateral Throughout] Respiratory Rate [Bilateral ] Blood Pressure 93/46 93/46 93/46 O2 Sat by Pulse 94 95 94 Oximetry 09/28/20 09/28/20 09/28/20 04:30 04:45 04:53 Temperature Pulse Rate 77 77 77 Pulse Rate [ Anterior Bilateral Throughout] Pulse Rate [ Bilateral] Pulse Rate [ From Monitor] Respiratory 07 30 Rate Respiratory Rate [Anterior Bilateral Throughout] Respiratory Rate [Bilateral ] Blood Pressure 90/45 91/48 91/48 O2 Sat by Pulse 94 96 95 Oximetry 09/28/20 09/28/20 09/28/20 05:00 05:15 05:30 Temperature Pulse Rate 77 76 75 Pulse Rate [ Anterior Bilateral Throughout] Pulse Rate [ Bilateral] Pulse Rate [ From Monitor] Respiratory 07 30 12 Rate Respiratory Rate [Anterior Bilateral Throughout] Respiratory Rate [Bilateral ] Blood Pressure 96/48 97/48 94/48 O2 Sat by Pulse 95 94 93 Oximetry 09/28/20 09/28/20 09/28/20 05:45 06:00 06:15 Temperature Pulse Rate 75 75 77 Pulse Rate [ Anterior Bilateral Throughout] Pulse Rate [ Bilateral] Pulse Rate [ From Monitor] Respiratory 07 30 12 Rate Respiratory Rate [Anterior Bilateral Throughout] Respiratory Rate [Bilateral ] Blood Pressure 90/46 90/46 91/46 O2 Sat by Pulse 93 94 97 Oximetry 09/28/20 09/28/20 09/28/20 06:30 06:45 07:00 Temperature Pulse Rate 78 79 79 Pulse Rate [ Anterior Bilateral Throughout] Pulse Rate [ Bilateral] Pulse Rate [ From Monitor] Respiratory 07 30 12 Rate Respiratory Rate [Anterior Bilateral Throughout] Respiratory Rate [Bilateral ] Blood Pressure 96/44 92/45 97/47 O2 Sat by Pulse 94 95 95 Oximetry 09/28/20 09/28/20 09/28/20 07:15 07:30 07:45 Temperature Pulse Rate 79 78 77 Pulse Rate [ Anterior Bilateral Throughout] Pulse Rate [ Bilateral] Pulse Rate [ From Monitor] Respiratory 12 12 Rate Respiratory Rate [Anterior Bilateral Throughout] Respiratory Rate [Bilateral ] Blood Pressure 101/48 101/48 96/45 O2 Sat by Pulse 94 94 94 Oximetry 09/28/20 09/28/20 09/28/20 08:00 08:15 08:30 Temperature 100.3 F H Pulse Rate 75 75 77 Pulse Rate [ Anterior Bilateral Throughout] Pulse Rate [ Bilateral] Pulse Rate [ From Monitor] Respiratory 12 12 12 Rate Respiratory Rate [Anterior Bilateral Throughout] Respiratory Rate [Bilateral ] Blood Pressure 93/47 100/46 108/48 O2 Sat by Pulse 96 96 96 Oximetry 09/28/20 09/28/20 09/28/20 08:45 09:00 09:15 Temperature Pulse Rate 79 76 75 Pulse Rate [ Anterior Bilateral Throughout] Pulse Rate [ Bilateral] Pulse Rate [ From Monitor] Respiratory 12 12 12 Rate Respiratory Rate [Anterior Bilateral Throughout] Respiratory Rate [Bilateral ] Blood Pressure 103/47 95/41 90/40 O2 Sat by Pulse 95 95 96 Oximetry 09/28/20 09/28/20 09/28/20 09:30 09:45 09:50 Temperature Pulse Rate 75 74 82 Pulse Rate [ Anterior Bilateral Throughout] Pulse Rate [ Bilateral] Pulse Rate [ From Monitor] Respiratory 12 12 Rate Respiratory Rate [Anterior Bilateral Throughout] Respiratory Rate [Bilateral ] Blood Pressure 92/42 87/41 87/40 O2 Sat by Pulse 96 96 94 Oximetry 09/28/20 09/28/20 09/28/20 10:00 10:09 10:15 Temperature Pulse Rate 77 75 75 Pulse Rate [ Anterior Bilateral Throughout] Pulse Rate [ Bilateral] Pulse Rate [ From Monitor] Respiratory 12 12 Rate Respiratory Rate [Anterior Bilateral Throughout] Respiratory Rate [Bilateral ] Blood Pressure 91/40 91/40 88/41 O2 Sat by Pulse 96 94 Oximetry 09/28/20 09/28/20 09/28/20 10:30 10:45 11:00 Temperature Pulse Rate 86 76 82 Pulse Rate [ Anterior Bilateral Throughout] Pulse Rate [ Bilateral] Pulse Rate [ From Monitor] Respiratory 12 12 12 Rate Respiratory Rate [Anterior Bilateral Throughout] Respiratory Rate [Bilateral ] Blood Pressure 99/45 90/39 87/40 O2 Sat by Pulse 93 93 94 Oximetry Constitutional: no acute distress, other (elderly female riding set rate on MVS without significant dys-synchrony) Eyes: non-icteric ENT: oropharynx moist, other (ETT 22 cm EMMA) Neck: supple, no lymphadenopathy, no JVD Effort: normal Ascultation: Bilateral: diminished breath sounds, rhonchi Percussion: Bilateral: not dull Cardiovascular: regular rate and rhythm Gastrointestinal: normoactive bowel sounds, soft, non-tender, non-distended Extremities: no cyanosis, no edema, pulses normal, no ischemia or petechiae Neurologic: pupils equal and round, unable to assess Psychiatric: other (unable to assess re: AMS) CBC and BMP: 09/27/20 05:15 09/28/20 05:13 ABG, PT/INR, D-dimer: ABG ABG pH 7.357 (7.320-7.450) 09/28/20 02:54 POC ABG pCO2 51.8 mmHg (32.0-48.0) H 09/28/20 02:54 POC ABG pO2 79.1 mmHg (83-108) L 09/28/20 02:54 POC ABG HCO3 28.4 09/28/20 02:54 PT/INR, D-dimer PT 14.6 Sec. (12.2-14.9) 09/24/20 07:08 INR 1.15 (0.87-1.13) H 09/24/20 07:08 D-Dimer > 15291 ng/mlDDU (0-234) H 09/25/20 15:36 Abnormal lab findings: Abnormal Labs 09/24/20 09/24/20 09/24/20 06:40 07:08 07:08 WBC 26.2 H RBC 5.23 H Hct 44.6 H MCH 26 L RDW 18.2 H Lymph % (Auto) 42.7 H Lymph # (Auto) 11.2 H [place] # (Auto) 1.2 H Seg Neuts % (Manual) 36.0 L Lymphocytes % (Manual) 59.0 H Monocytes % (Manual) Seg Neutrophils # 13.4 H Seg Neutrophils # Man 9.4 H Lymphocytes # (Manual) 15.5 H Monocytes # (Manual) INR 1.15 H APTT 23.0 L D-Dimer ABG pH POC ABG pCO2 POC ABG pO2 ABG Hemoglobin ABG Oxyhemoglobin ABG Sodium ABG Potassium ABG Chloride ABG Glucose Sodium Potassium Chloride Carbon Dioxide BUN Glucose POC Glucose 195 H Calcium Magnesium Ferritin AST ALT Alkaline Phosphatase Lactate Dehydrogenase Total Creatine Kinase CK-MB (CK-2) Total Protein Albumin Arterial Blood Glucose Arterial Blood Ionized Calcium Urine WBC (Auto) 0209/24/20 09/24/20 07:08 07:08 07:15 WBC RBC Hct MCH RDW Lymph % (Auto) Lymph # (Auto) [place] # (Auto) Seg Neuts % (Manual) Lymphocytes % (Manual) Monocytes % (Manual) Seg Neutrophils # Seg Neutrophils # Man Lymphocytes # (Manual) Monocytes # (Manual) INR APTT D-Dimer ABG pH POC ABG pCO2 POC ABG pO2 ABG Hemoglobin ABG Oxyhemoglobin ABG Sodium ABG Potassium ABG Chloride ABG Glucose Sodium Potassium Chloride Carbon Dioxide BUN Glucose 293 H POC Glucose Calcium Magnesium 2.90 H Ferritin 1063.0 H AST 178 H ALT 185 H Alkaline Phosphatase 144 H Lactate Dehydrogenase 667 H Total Creatine Kinase 273 H CK-MB (CK-2) 4.4 H Total Protein 6.0 L Albumin 3.7 L Arterial Blood Glucose Arterial Blood Ionized Calcium Urine WBC (Auto) 9.0 H 09/24/20 09/24/20 09/24/20 08:02 11:30 17:11 WBC RBC Hct MCH RDW Lymph % (Auto) Lymph # (Auto) [place] # (Auto) Seg Neuts % (Manual) Lymphocytes % (Manual) Monocytes % (Manual) Seg Neutrophils # Seg Neutrophils # Man Lymphocytes # (Manual) Monocytes # (Manual) INR APTT D-Dimer ABG pH 7.218 L POC ABG pCO2 25.8 L POC ABG pO2 203.9 H ABG Hemoglobin 8.7 L ABG Oxyhemoglobin ABG Sodium ABG Potassium 2.0 L ABG Chloride 122.0 H ABG Glucose 129 H Sodium Potassium Chloride Carbon Dioxide BUN Glucose POC Glucose 160 H 115 H Calcium Magnesium Ferritin AST ALT Alkaline Phosphatase Lactate Dehydrogenase Total Creatine Kinase CK-MB (CK-2) Total Protein Albumin Arterial Blood Glucose 129 H Arterial Blood Ionized Calcium 3.2 L Urine WBC (Auto) 09/24/20 09/25/20 09/25/20 23:07 04:50 05:18 WBC RBC Hct MCH RDW Lymph % (Auto) Lymph # (Auto) [place] # (Auto) Seg Neuts % (Manual) Lymphocytes % (Manual) Monocytes % (Manual) Seg Neutrophils # Seg Neutrophils # Man Lymphocytes # (Manual) Monocytes # (Manual) INR APTT D-Dimer ABG pH POC ABG pCO2 POC ABG pO2 133.5 H ABG Hemoglobin ABG Oxyhemoglobin ABG Sodium ABG Potassium ABG Chloride ABG Glucose 149 H Sodium Potassium Chloride Carbon Dioxide BUN Glucose POC Glucose 110 H 130 H Calcium Magnesium Ferritin AST ALT Alkaline Phosphatase Lactate Dehydrogenase Total Creatine Kinase CK-MB (CK-2) Total Protein Albumin Arterial Blood Glucose 149 H Arterial Blood Ionized Calcium 4.4 L Urine WBC (Auto) 09/25/20 09/25/20 09/25/20 11:46 12:34 15:36 WBC 31.6 H RBC 5.37 H Hct MCH 25 L RDW 17.4 H Lymph % (Auto) Lymph # (Auto) [place] # (Auto) Seg Neuts % (Manual) Lymphocytes % (Manual) Monocytes % (Manual) Seg Neutrophils # Seg Neutrophils # Man Lymphocytes # (Manual) Monocytes # (Manual) INR APTT D-Dimer ABG pH POC ABG pCO2 POC ABG pO2 ABG Hemoglobin ABG Oxyhemoglobin ABG Sodium ABG Potassium ABG Chloride ABG Glucose Sodium Potassium Chloride Carbon Dioxide BUN Glucose 152 H POC Glucose 140 H Calcium 8.3 L Magnesium Ferritin AST ALT Alkaline Phosphatase Lactate Dehydrogenase Total Creatine Kinase CK-MB (CK-2) Total Protein Albumin Arterial Blood Glucose Arterial Blood Ionized Calcium Urine WBC (Auto) 09/25/20 09/25/20 09/25/20 15:36 17:20 23:36 WBC RBC Hct MCH RDW Lymph % (Auto) Lymph # (Auto) [place] # (Auto) Seg Neuts % (Manual) Lymphocytes % (Manual) Monocytes % (Manual) Seg Neutrophils # Seg Neutrophils # Man Lymphocytes # (Manual) Monocytes # (Manual) INR APTT D-Dimer > 94440 H ABG pH POC ABG pCO2 POC ABG pO2 ABG Hemoglobin ABG Oxyhemoglobin ABG Sodium ABG Potassium ABG Chloride ABG Glucose Sodium Potassium Chloride Carbon Dioxide BUN Glucose POC Glucose 152 H 177 H Calcium Magnesium Ferritin AST ALT Alkaline Phosphatase Lactate Dehydrogenase Total Creatine Kinase CK-MB (CK-2) Total Protein Albumin Arterial Blood Glucose Arterial Blood Ionized Calcium Urine WBC (Auto) 09/26/20 09/26/20 09/26/20 03:20 05:22 05:30 WBC 24.9 H RBC 5.21 H Hct MCH 26 L RDW 17.9 H Lymph % (Auto) Lymph # (Auto) [place] # (Auto) Seg Neuts % (Manual) 95.0 H Lymphocytes % (Manual) 2.0 L Monocytes % (Manual) Seg Neutrophils # Seg Neutrophils # Man 23.7 H Lymphocytes # (Manual) 0.5 L Monocytes # (Manual) INR APTT D-Dimer ABG pH POC ABG pCO2 POC ABG pO2 70.9 L ABG Hemoglobin ABG Oxyhemoglobin 93.5 L ABG Sodium 156.0 H ABG Potassium ABG Chloride 121.0 H ABG Glucose 273 H Sodium Potassium Chloride Carbon Dioxide BUN Glucose POC Glucose 222 H Calcium Magnesium Ferritin AST ALT Alkaline Phosphatase Lactate Dehydrogenase Total Creatine Kinase CK-MB (CK-2) Total Protein Albumin Arterial Blood Glucose 273 H Arterial Blood Ionized Calcium Urine WBC (Auto) 09/26/20 09/26/20 09/26/20 05:30 05:30 08:55 WBC RBC Hct MCH RDW Lymph % (Auto) Lymph # (Auto) [place] # (Auto) Seg Neuts % (Manual) Lymphocytes % (Manual) Monocytes % (Manual) Seg Neutrophils # Seg Neutrophils # Man Lymphocytes # (Manual) Monocytes # (Manual) INR APTT D-Dimer ABG pH POC ABG pCO2 POC ABG pO2 ABG Hemoglobin ABG Oxyhemoglobin ABG Sodium ABG Potassium ABG Chloride ABG Glucose Sodium 162 H* D 166 H* Potassium Chloride 127.9 H Carbon Dioxide BUN 19 H Glucose 281 H POC Glucose Calcium Magnesium Ferritin AST 86 H ALT 88 H Alkaline Phosphatase Lactate Dehydrogenase Total Creatine Kinase CK-MB (CK-2) Total Protein 5.4 L Albumin 3.4 L Arterial Blood Glucose Arterial Blood Ionized Calcium Urine WBC (Auto) 09/26/20 09/26/20 09/26/20 11:20 17:45 18:44 WBC RBC Hct MCH RDW Lymph % (Auto) Lymph # (Auto) [place] # (Auto) Seg Neuts % (Manual) Lymphocytes % (Manual) Monocytes % (Manual) Seg Neutrophils # Seg Neutrophils # Man Lymphocytes # (Manual) Monocytes # (Manual) INR APTT D-Dimer ABG pH POC ABG pCO2 POC ABG pO2 ABG Hemoglobin ABG Oxyhemoglobin ABG Sodium ABG Potassium ABG Chloride ABG Glucose Sodium 179 H* D Potassium Chloride 139 H Carbon Dioxide BUN 18 H Glucose 200 H POC Glucose 187 H 167 H Calcium Magnesium Ferritin AST ALT Alkaline Phosphatase Lactate Dehydrogenase Total Creatine Kinase CK-MB (CK-2) Total Protein Albumin Arterial Blood Glucose Arterial Blood Ionized Calcium Urine WBC (Auto) 09/26/20 09/27/20 09/27/20 23:17 00:22 02:29 WBC RBC Hct MCH RDW Lymph % (Auto) Lymph # (Auto) [place] # (Auto) Seg Neuts % (Manual) Lymphocytes % (Manual) Monocytes % (Manual) Seg Neutrophils # Seg Neutrophils # Man Lymphocytes # (Manual) Monocytes # (Manual) INR APTT D-Dimer ABG pH POC ABG pCO2 50.1 H POC ABG pO2 73.0 L ABG Hemoglobin ABG Oxyhemoglobin ABG Sodium 182.7 H ABG Potassium ABG Chloride > 120.0 H ABG Glucose 205 H Sodium > 179 H* Potassium Chloride > 139 H Carbon Dioxide BUN 20 H Glucose 189 H POC Glucose 156 H Calcium Magnesium Ferritin AST ALT Alkaline Phosphatase Lactate Dehydrogenase Total Creatine Kinase CK-MB (CK-2) Total Protein Albumin Arterial Blood Glucose 205 H Arterial Blood Ionized Calcium 5.7 H Urine WBC (Auto) 09/27/20 09/27/20 09/27/20 05:13 05:15 05:15 WBC 28.6 H RBC 5.14 H Hct MCH 26 L RDW 18.5 H Lymph % (Auto) Lymph # (Auto) [place] # (Auto) Seg Neuts % (Manual) 88.0 H Lymphocytes % (Manual) 3.0 L Monocytes % (Manual) 9.0 H Seg Neutrophils # Seg Neutrophils # Man 25.2 H Lymphocytes # (Manual) 0.9 L Monocytes # (Manual) 2.6 H INR APTT D-Dimer ABG pH POC ABG pCO2 POC ABG pO2 ABG Hemoglobin ABG Oxyhemoglobin ABG Sodium ABG Potassium ABG Chloride ABG Glucose Sodium > 179 H* Potassium 3.5 L Chloride > 139 H Carbon Dioxide 31 H BUN 19 H Glucose 203 H POC Glucose 183 H Calcium Magnesium Ferritin AST ALT Alkaline Phosphatase Lactate Dehydrogenase Total Creatine Kinase CK-MB (CK-2) Total Protein Albumin Arterial Blood Glucose Arterial Blood Ionized Calcium Urine WBC (Auto) 09/27/20 09/27/20 09/27/20 12:23 18:04 18:05 WBC RBC Hct MCH RDW Lymph % (Auto) Lymph # (Auto) [place] # (Auto) Seg Neuts % (Manual) Lymphocytes % (Manual) Monocytes % (Manual) Seg Neutrophils # Seg Neutrophils # Man Lymphocytes # (Manual) Monocytes # (Manual) INR APTT D-Dimer ABG pH POC ABG pCO2 POC ABG pO2 ABG Hemoglobin ABG Oxyhemoglobin ABG Sodium ABG Potassium ABG Chloride ABG Glucose Sodium 180 H* Potassium Chloride Carbon Dioxide BUN Glucose POC Glucose 150 H 149 H Calcium Magnesium Ferritin AST ALT Alkaline Phosphatase Lactate Dehydrogenase Total Creatine Kinase CK-MB (CK-2) Total Protein Albumin Arterial Blood Glucose Arterial Blood Ionized Calcium Urine WBC (Auto) 09/27/20 09/28/20 09/28/20 23:19 00:21 02:54 WBC RBC Hct MCH RDW Lymph % (Auto) Lymph # (Auto) [place] # (Auto) Seg Neuts % (Manual) Lymphocytes % (Manual) Monocytes % (Manual) Seg Neutrophils # Seg Neutrophils # Man Lymphocytes # (Manual) Monocytes # (Manual) INR APTT D-Dimer ABG pH POC ABG pCO2 51.8 H POC ABG pO2 79.1 L ABG Hemoglobin ABG Oxyhemoglobin ABG Sodium 173.6 H ABG Potassium ABG Chloride 137.0 H ABG Glucose 232 H Sodium 176 H* Potassium Chloride Carbon Dioxide BUN Glucose POC Glucose 197 H Calcium Magnesium Ferritin AST ALT Alkaline Phosphatase Lactate Dehydrogenase Total Creatine Kinase CK-MB (CK-2) Total Protein Albumin Arterial Blood Glucose 232 H Arterial Blood Ionized Calcium Urine WBC (Auto) 09/28/20 09/28/20 05:02 05:13 WBC RBC Hct MCH RDW Lymph % (Auto) Lymph # (Auto) [place] # (Auto) Seg Neuts % (Manual) Lymphocytes % (Manual) Monocytes % (Manual) Seg Neutrophils # Seg Neutrophils # Man Lymphocytes # (Manual) Monocytes # (Manual) INR APTT D-Dimer ABG pH POC ABG pCO2 POC ABG pO2 ABG Hemoglobin ABG Oxyhemoglobin ABG Sodium ABG Potassium ABG Chloride ABG Glucose Sodium 175 H* Potassium Chloride 139.4 H Carbon Dioxide BUN 18 H Glucose 217 H POC Glucose 194 H Calcium Magnesium Ferritin AST ALT Alkaline Phosphatase Lactate Dehydrogenase Total Creatine Kinase CK-MB (CK-2) Total Protein Albumin Arterial Blood Glucose Arterial Blood Ionized Calcium Urine WBC (Auto) Chest x-ray: pending Allied health notes reviewed: nursing
[2020-09-28 18:01] VITALS: BP 188/88
== END 2020-09-28 17:00 | disposition hospice, inpatient (51) | DRG 870 ==
LOC: ED 06:35 → CC1 09:07
PROVIDERS: ADMIT Internal Medicine; ATTEND Internal Medicine
PROC: 02HV33Z Insertion of Infusion Device into Superior Vena Cava, Percutaneous Approach (ICD-10-PCS; principal; 2020-09-24)
PROC: 0BH17EZ Insertion of Endotracheal Airway into Trachea, Via Natural or Artificial Opening (ICD-10-PCS; 2020-09-24)
PROC: 5A1955Z Respiratory Ventilation, Greater than 96 Consecutive Hours (ICD-10-PCS; 2020-09-24)
PROC: 4A033R1 Measurement of Arterial Saturation, Peripheral, Percutaneous Approach (ICD-10-PCS; 2020-09-24)
DX: A41.9 Sepsis, unspecified organism (principal); J96.00 Acute respiratory failure, unspecified whether with hypoxia or hypercapnia; I46.9 Cardiac arrest, cause unspecified; K72.00 Acute and subacute hepatic failure without coma; J69.0 Pneumonitis due to inhalation of food and vomit; G93.41 Metabolic encephalopathy; R65.21 Severe sepsis with septic shock; G93.1 Anoxic brain damage, not elsewhere classified; J44.1 Chronic obstructive pulmonary disease with (acute) exacerbation; Z20.822 Contact with and (suspected) exposure to COVID-19; E11.9 Type 2 diabetes mellitus without complications; M19.90 Unspecified osteoarthritis, unspecified site; F17.210 Nicotine dependence, cigarettes, uncomplicated; E78.5 Hyperlipidemia, unspecified; Z66 Do not resuscitate; E78.00 Pure hypercholesterolemia, unspecified; Z79.899 Other long term (current) drug therapy; Z79.891 Long term (current) use of opiate analgesic; Z79.01 Long term (current) use of anticoagulants; Z88.0 Allergy status to penicillin; Z88.8 Allergy status to other drugs, medicaments and biological substances; Z88.5 Allergy status to narcotic agent; Z88.2 Allergy status to sulfonamides; Z90.710 Acquired absence of both cervix and uterus; Z82.49 Family history of ischemic heart disease and other diseases of the circulatory system; Z83.6 Family history of other diseases of the respiratory system
CPT/HCPCS: 31500; 36415; 36600; 70450; 71045; 74018; 74176; 80048; 80076; 81001; 82550; 82553; 82728; 82805; 82962; 83615; 83735; 83880; 83935; 84100; 84145; 84295; 84484; 85007; 85025; 85027; 85379; 85610; 85730; 86140; 86850; 86900; 86901; 87040; 87086; 93005; 93306; 93970; 94002; 94003; 94640; 95819; 96365; 96375; 99292; G0378; J0171; J0456; J0692; J1100; J1650; J1815; J2060; J2920; J3010; J7030; J7042; J7070; J8540; U0003